=== PATIENT | male | born 1930 | race Caucasian/White ===

== ENCOUNTER 2017-09-01 06:24 | Emergency (ER) | payer MEDICARE ==
[~2017-09-01 06:24] MED LIST: ALBUTEROL SULF8.5 GM INH; AMLODIPINE BES2.5 MG PO; AMLODIPINE BESY10 MG PO; ARTIFICIAL TEAR15 M1 OPTH; ATROVENT30 ML NAS; BACTRIM DS TAB1 EACH PO; CARAFATE1 GM PO; CILOSTAZOL100 MG PO; COUGHTAB200 MG PO; COUMADIN2.5 MG PO; CRESTOR20 MG PO; DOXYCYCLINE HY100 MG PO; FLUNISOLIDE1 SPRAY; FLUOROMETHOLONE5 ML OU; FOLIC ACID1 MG PO; FUROSEMIDE40 MG PO; GUAIATUSSIN AC10 ML PO; GUIATUSS AC SY120 ML PO; ICAPS AREDS FO1 EACH PO; ISOSORBIDE MONO30 MG PO; K-TAB10 MEQ PO; METOPROLOL SUC100 MG PO; METOPROLOL TAR100 MG PO; MUCUS RELIEF200 MG PO; OMEPRAZOLE20 MG PO; POTASSIUM CHLO10 MEQ PO; PROVENTIL HFA6.7 GM INH; WARFARIN SODIUM5 MG PO; ZANTAC150 MG PO
--- NOTE | 2017-09-02 14:23 | EKG ---
[facility] [address] [facility] [place] [address] Signed Atrial fibrillation with rapid ventricular response Low voltage QRS Nonspecific ST abnormality Abnormal ECG When compared with ECG of 15-JUL-2016 18:51, No significant change was found Confirmed by GUSTAVO HINES MD ([id number]) on 09/02/2017 2:23:28 PM Electronically Signed By: GUSTAVO HINES MD 09/02/17 1423 PATIENT NAME: JULIA WARD JIGNESH Electrocardiogram DATE OF : 34 PHYSICIAN: GUSTAVO HINES MD REPORT #: [id number] REPORT IS CONFIDENTIAL AND NOT TO BE RELEASED WITHOUT AUTHORIZATION
== END 2017-09-01 08:11 | disposition home or self-care (01) ==
LOC: ED 06:24
DX: I48.91 Unspecified atrial fibrillation (principal); R10.9 Unspecified abdominal pain; R10.811 Right upper quadrant abdominal tenderness; I11.0 Hypertensive heart disease with heart failure; I50.9 Heart failure, unspecified; Z87.01 Personal history of pneumonia (recurrent); Z87.891 Personal history of nicotine dependence; Z88.6 Allergy status to analgesic agent; Z88.5 Allergy status to narcotic agent; Z79.899 Other long term (current) drug therapy; Z79.01 Long term (current) use of anticoagulants
CPT/HCPCS: 71010; 80053; 83690; 83735; 84484; 85025; 85610; 85730; 93005; 93010; 96374; 99283

== ENCOUNTER 2019-04-03 14:48 | Inpatient (IN) | payer MEDICARE ==
[~2019-04-03] VITALS: Ht 167.6 cm; Wt 71.9 kg
--- OUTSIDE RECORDS SUMMARY | ~2019-04-03 | XMS | Encounter Summary ---
Demographics + + + | Address | [id number] [place] [address] RD | | | [place] [address] | + + + | Home Phone | | + + + | Preferred Language | Unknown | + + + | Marital Status | | + + + | Latter Day Affiliation | 1077 | + + + | Race | Unknown | + + + | Ethnic Group | Unknown | + + + Author + + + | Author | [facility] | | | and [place] | + + + | Organization | [facility] | | | and [place] | + + + | Address | Unknown | + + + | Phone | Unavailable | + + + Support + + + + + | Name | Relationship | Address | Phone | + + + + + | MatthewElaine | ECON | [address] | | | | | [place] | | | | | [address] | | + + + + + Care Team Providers + +------+ + | Care Guide Foreign Tour Name | Role | Phone | + +------+ + | Curt Chanel | PCP | | + +------+ + Reason for Visit + + + | Reason | Comments | + + + | Abdominal Pain | epigastric | + + + Evaluate & Treat (Routine) +--------+--------+ + + + + | Status | Reason | Specialty | Diagnoses / | Referred By | Referred To | | | | | Procedures | Contact | Contact | +--------+--------+ + + + + | Closed | | Gastroenterol | Diagnoses | [place], | [facility] | | | | ogy | Epigastric | Curt Q, | Gastroenterol | | | | | burning | [employer] [address] | [address] | | | | | sensation | [place] | [address] | | | | | [address] | [address] | [address] [place] | | | | | esophagus | [place], [place] | [place] | | | | | Procedures | [address] | [address] | | | | | egd consult | Phone: | Phone: | | | | | | [phone] | [phone] | | | | | | Fax: | Fax: | | | | | | [phone] | [phone] | +--------+--------+ + + + + Encounter Details +--------+---------+ + + + | Date | Type | Department | Care Team | Description | +--------+---------+ + + + | 03/02/ | Office | [facility] | [place], | Abdominal pain, | | 2019 | Visit | GASTROENTEROLOGY | ELSIE Newman [address] | unspecified | | | | [address] | [place], [address] | abdominal location | | | | [address] [place], [place] | [place], [place] | (Primary Dx); Atrial | | | | [address] | [address] | fibrillation, | | | | [phone] | | unspecified type | | | | | | (HCC); Chronic | | | | | | obstructive | | | | | | pulmonary disease, | | | | | | unspecified COPD | | | | | | type (HCC); Long | | | | | | term (current) use | | | | | | of anticoagulants | +--------+---------+ + + + Social History + +-------+ +--------+------+ | Tobacco Use | Types | Packs/Day | Years | Date | | | | | Used | | + +-------+ +--------+------+ | Never Smoker | | | | | + +-------+ +--------+------+ + +---+---+---+ | Smokeless Tobacco: | | | | | Never Used | | | | + +---+---+---+ + + +---------+ + | Alcohol Use | Drinks/We | oz/Week | Comments | | | ek | | | + + +---------+ + | Not Currently | | | | + + +---------+ + + + + | Sex Assigned at | Date Recorded | | | | + + + | Not on file | | + + + + + + + | Job Start Date | Occupation | Industry | + + + + | Not on file | Not on file | Not on file | + + + + + + + + | Travel History | Travel Start | Travel End | + + + + + + | No recent travel history available. | + + documented as of this encounter Last Filed Vital Signs + + + + | Vital Sign | Reading | Time Taken | + + + + | Blood Pressure | 130/52 | 03/02/2019 0959 PDT | + + + + | Pulse | 80 | 03/02/2019958 PDT | + + + + | Temperature | 36.6 C (97.8 F) | 03/02/2019958 PDT | + + + + | Respiratory Rate | 16 | 03/02/2019958 PDT | + + + + | Oxygen Saturation | 93% | 03/02/2019958 PDT | + + + + | Inhaled Oxygen | - | - | | Concentration | | | + + + + | Weight | 73.6 kg (162 lb 4.1 | 03/02/2019958 PDT | | | oz) | | + + + + | Height | 165.1 cm (5' 5") | 03/02/2019 0959 PDT | + + + + | Body Mass Index | 27 | 03/02/2019 0959 PDT | + + + + documented in this encounter Patient Instructions Patient Instructions Paty Newton ARNP - 03/02/2019 10:00 PDTCheck with the prescib er of the Eliquis to be sure it is safe to stop for a short time to have EGD and colonoscopy done. documented in this encounter Progress Notes Fransisca Reich RN - 03/02/2019 1000 PDTScheduled pt for EGD/Colon with propofol bj tion (Afib/Eliquis, ) on Sat03/31/[address] Bhatti; standard prep reviewed: low fib er diet Sat/Sun before procedure; Saturday follow a clear liquid day before with bowel prep at 4pm until complete; Medications (hold Eliquis 24 hrs - pt states he usually hold 3 days per provider instruction and will confirm with provider; will hold PPI and Carafate day of proc edure as well), surg/med hx, and allergies were reviewed; rx given to patient to take to [place] [facility] for bowel prep and Zofran; info provided to patient; completed case request order, notes to [place]; patient's going through cancer treatment and unsure of treatment dates so may need to reschedule last minute based on her dates of treatment. aty Newton ARNP - 03/02/2019 1000 PDT PATIENT NAME: James Castro : 1930: AGE: 89 y.o. REFERRED BY: Curt Chanel PRIMARY CARE: ELSIE Jon Subjective: CHIEF COMPLAINT: James Castro is a 89 y.o. male referred by ELSIE Jon for evaluation and tr eatment of epigastric abdominal pain HISTORY OF PRESENT ILLNESS: Patient states that he has drank enough Maalox "to float a ship." He has the pain in mid abdomen and epigastric pain at least once per day. Worse with laying down. He has not associated with certain foods or eating in general. He describes as a dull pain that can burn. It can last up to half the night or 10 minutes. Tums helps some. He arvind es at least 4 per day. He has not vomited due to pain. He has taken warfarin for years. He was switched to Eliquis for the past year. He has tried taking omeprazole and sucralfate. He recently stopped taking both and it seeme d to help his abdominal pain some. He states that the same time he has had the abdominal discomfort, he has also had diarrhea. He states he typically has 1 diarrheal stool per day. He denies blood in the stool. He thinks last colonoscopy was 6-7 years ago. 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) Pseudophakia TIA (transient ischemic attack) Past Surgical History: Procedure Laterality Date COLONOSCOPY Family History Problem Relation Age of Onset Stroke Mother Social History Socioeconomic History Marital status: Spouse name: Not on file Number of children: Not on file Years of education: Not on file Highest education level: Not on file Social Needs Financial resource strain: Not on file Food insecurity - worry: Not on file Food insecurity - inability: Not on file Transportation needs - medical: Not on file Transportation needs - non-medical: Not on file Occupational History Not on file Tobacco Use Smoking status: Never Smoker Smokeless tobacco: Never Used Substance and Sexual Activity Alcohol use: Not Currently Drug use: Not on file Sexual activity: Not on file Other Topics Concern Not on file Social History Narrative Not on file Review of Systems Constitutional: Negative for diaphoresis, fatigue, fever and unexpected weight change. HENT: Positive for hearing loss, rhinorrhea and tinnitus. Negative for congestion, mouth so res and trouble swallowing. Eyes: Negative for redness and visual disturbance. Respiratory: Negative for cough, choking, chest tightness, shortness of breath and wheezing . Cardiovascular: Positive for chest pain and palpitations. Negative for leg swelling. Gastrointestinal: Positive for abdominal pain and diarrhea. Negative for abdominal distenti on, anal bleeding, blood in stool, constipation, nausea, rectal pain and vomiting. Complains of heartburn. Endocrine: Denies enlarged thyroid Genitourinary: Negative for dysuria, flank pain and frequency. Musculoskeletal: Positive for arthralgias and back pain. Negative for joint swelling. Skin: Negative for color change and rash. Neurological: Positive for headaches. Negative for seizures, syncope, weakness and numbness . Hematological: Does not bruise/bleed easily. Denies anemia or enlarged lymph glands. Psychiatric/Behavioral: Negative for dysphoric mood. The patient is not nervous/anxious. Objective: Physical Exam Constitutional: He is oriented to person, place, and time. He appears well-developed and we ll-nourished. HENT: Head: Normocephalic and atraumatic. Eyes: EOM are normal. No scleral icterus. Neck: Normal range of motion. Neck supple. Cardiovascular: Normal rate, regular rhythm and normal heart sounds. Pulmonary/Chest: Effort normal and breath sounds normal. No respiratory distress. He has no wheezes. Abdominal: Soft. Normal appearance and bowel sounds are normal. He exhibits no ascites and no mass. There is no splenomegaly or hepatomegaly. There is no tenderness. There is no rigid ity, no rebound, no guarding and negative Thomason's sign. Musculoskeletal: Normal range of motion. He exhibits no edema or deformity. Neurological: He is alert and oriented to person, place, and time. Skin: Skin is warm and dry. No rash noted. Psychiatric: He has a normal mood and affect. His behavior is normal. Nursing note and vitals reviewed. Abstract on 02/13/2019 Component Date Value Ref Range Status Creatinine, External 12/26/2018 1.1 0.8 - 1.5 Final eGFR, External 12/26/2018 >60 60 - 99,999 Final LDL Cholesterol, External 12/26/2018 59 0 - 130 Final Cholesterol, Total, External 12/26/2018 84 51 - 152 mg/dl Final Triglycerides, External 12/26/2018 35* 51 - 152 Final TSH, External 12/26/2018 5.72* 0.3 - 4.25 Final WBC, External 12/26/2018 8 3 - 10.6 Final HGB, External 12/26/2018 12.4 11.8 - 17.1 Final HCT, External 12/26/2018 38.6 36 - 51 Final PLT, External 12/26/2018 178 150 - 400 Final Neutrophils %, External 12/26/2018 65.4 44 - 74 Final Lymphocytes %, External 12/26/2018 22.8 15 - 42 Final Monocytes %, External 12/26/2018 7.7 4 - 13 Final Eosinophils %, External 12/26/2018 2.8 0 - 7 Final Neutrophils, Absolute, External 12/26/2018 5.2 1.2 - 7 Final Lymphocytes, Absolute, External 12/26/2018 1.8 0.6 - 3.4 Final Monocytes, Absolute, External 12/26/2018 0.6 0.2 - 1 Final Eosinophils, Absolute 12/26/2018 0.1 0 - 0.2 Final Basophils, Absolute 12/26/2018 0.1 0 - 0.2 Final RBC, External 12/26/2018 4.28 3.86 - 5.7 Final MCV, External 12/26/2018 90 81 - 102 Final RDW, External 12/26/2018 13.3 11.2 - 16.2 Final UA Blood, External 12/26/2018 Negative Final UA Glucose, External 12/26/2018 Negative Final UA Ketones, External 12/26/2018 Negative Final UA Ph, External 12/26/2018 7 5 - 8 Final UA Proteins, External 12/26/2018 Negative Final UA RBC, External 12/26/2018 <1 0 - 3 Final UA Specific [place], External 12/26/2018 1.003 1.001 - 1.03 Final UA Leukocyte Esterase, External 12/26/2018 Negative Final Sodium, External 12/26/2018 141 133 - 145 Final Potassium, External 12/26/2018 3.8 3.5 - 5.1 Final Chloride, External 12/26/2018 101 98 - 107 Final Carbon Dioxide, External 12/26/2018 30 21 - 32 Final Calcium, External 12/26/2018 8.7 8.4 - 10.5 Final Protein, Total, External 12/26/2018 4.1 3.5 - 5 Final Albumin, External 12/26/2018 4.1* 2.3 - 3.5 Final Bilirubin, Total, External 12/26/2018 0.6 0.2 - 1.3 Final ALP, External 12/26/2018 124 45 - 129 Final AST, External 12/26/2018 17 14 - 44 Final ALT, External 12/26/2018 15 9 - 57 Final Glucose, External 12/26/2018 101 71 - 109 Final BUN, External 12/26/2018 13 7 - 23 Final Globulin 12/26/2018 3.6* 2.3 - 3.5 Final Chol/HDL Ratio 12/26/2018 2.8* 3.7 - 6.7 Final Non HDL Chol. (LDL+VLDL) 12/26/2018 76 0 - 130 Final MCH 12/26/2018 29.0 26.0 - 33.0 pg Final MCHC 12/26/2018 32.1 31.0 - 37.0 g/dL Final % Basophils 12/26/2018 1.0 0.0 - 2.0 % Final FREE T4 (REF) 12/26/2018 1.5 0.6 - 2 Final Color 12/26/2018 Colorless Final Clarity 12/26/2018 Clear Final Bilirubin, Urine 12/26/2018 Negative Negative Final Urobilinogen, Urine 12/26/2018 <2.0 mg/dL < 0.2 mg/dL, 1.0 mg/dL, 4.0 mg/dL, Normal, 1 .0 E.U./dL, 0.2 E.U./dL, 0.2 mg/dL, Negative, 1 mg/dL, <2.0 mg/dL Final Nitrite, Urine 12/26/2018 Negative Negative Final WBC 12/26/2018 <1 0 - 5 Final Assessment: 1. Abdominal pain, unspecified abdominal location Case Request - OR/ENDO/ASC/OB: EGD, COLO NOSCOPY 2. Atrial fibrillation, unspecified type (HCC) Case Request - OR/ENDO/ASC/OB: EGD, COLONOS COPY 3. Chronic obstructive pulmonary disease, unspecified COPD type (HCC) Case Request - OR/EN DO/ASC/OB: EGD, COLONOSCOPY 4. intermediate (current) use of anticoagulants Case Request - OR/ENDO/ASC/OB: EGD, COLONOSCO PY Plan: Patient to have EGD and colonoscopy for further evaluation. The procedural techniques, risk s, indications, and alternatives were discussed. Among the risks, are perforation, bleeding , infection, allergic/adverse reactions to medications, and cardiovascular complications. E ach of these could result in hospitalization, additional procedures (including surgery), or other life threatening complications. Patient verbalized understanding. Risk factors to col o-rectal cancer discussed with patient including smoking, obesity, excessive red meat ingest ion, advancing age and first degree family relative with history of colo-rectal cancer discu ssed with patient. Patient to call with any questions or concerns prior to procedure. History of transient cerebral ischemia. Start dissolvable fiber supplement daily. Will follow up with results. Patient is to call with any question or concerns. Any fevers, chills, chest pain, SOB or other serious symptoms patient is to call the office or go to ER . Cc: ELSIE Jon This note was dictated using voice recognition software. Please contact me if there are an y questions regarding its content. documented in this encounter Plan of Treatment +--------+---------+ + + + | Date | Type | Specialty | Care Team | Description | +--------+---------+ + + + | 05/04/ | Office | Gastroenterology | [facility], | | | 2018 | Visit | | MIQUEL Newman[address] | | | | | | [place] | | | | | | [place] | | | | | | [id number] | | | | | | | | +--------+---------+ + + + documented as of this encounter Visit Diagnoses + + | Diagnosis | + + | Abdominal pain, unspecified abdominal location - Primary | + + | Atrial fibrillation, unspecified type (HCC) | + + | Chronic obstructive pulmonary disease, unspecified COPD type (HCC) | + + | intermediate (current) use of anticoagulants Long-term (current) use of anticoagulants | + + documented in this encounter
--- OUTSIDE RECORDS SUMMARY | ~2019-04-03 | XMS | Clinical Summary ---
Demographics + + + | Address | [id number] [place] [address] Rd | | | [place] [address] | + + + | Home Phone | | + + + | Preferred Language | Unknown | + + + | Marital Status | | + + + | Shinto Affiliation | 1077 | + + + | Race | Unknown | + + + | Ethnic Group | Unknown | + + + Author + + + | Author | [facility] | + + + | Organization | [facility] | + + + | Address | Unknown | + + + | Phone | Unavailable | + + + Support + + + + + | Name | Relationship | Address | Phone | + + + + + | James Castro | ECON | [address] | | | | | [place] | | | | | [address] | | + + + + + Care Team Providers + +------+ + | Care [facility] Name | Role | Phone | + +------+ + | Sukhdeep Hanna MD | PP | | + +------+ + Allergies No Known Allergies Current Medications + + +-------+---------+------+------+-------+ | Prescription | Sig. | Disp. | Refills | Star | End | Statu | | | | | | t | Date | s | | | | | | Date | | | + + +-------+---------+------+------+-------+ | folic acid | TAKE ONE TABLET BY | | | | | Activ | | (FOLVITE) 1 MG | MOUTH EVERY DAY | | | | | e | | tablet | | | | | | | + + +-------+---------+------+------+-------+ | furosemide (LASIX) | TAKE ONE TABLET BY | | | | | Activ | | 40 MG tablet | MOUTH EVERY DAY | | | | | e | + + +-------+---------+------+------+-------+ | isosorbide | TAKE ONE-HALF TABLET | | | | | Activ | | mononitrate (IMDUR) | BY MOUTH EVERY | | | | | e | | 60 MG 24 hr tablet | MORNING | | | | | | + + +-------+---------+------+------+-------+ | metoprolol | TAKE 100MG 1 1/2 BY | | | | | Activ | | (LOPRESSOR) 100 MG | MOUTH TWICE A DAY | | | | | e | | tablet | | | | | | | + + +-------+---------+------+------+-------+ | potassium chloride | TAKE TWO TABLETS BY | | | 07/28 | 07/28 | Activ | | in dextrose | MOUTH TWICE A DAY | | | 05/16 | 06/16 | e | | solution | WITH LASIX | | | 18 | 19 | | + + +-------+---------+------+------+-------+ | rosuvastatin | TAKE ONE-HALF TABLET | | | 07/28 | 07/28 | Activ | | (CRESTOR) 20 MG | BY MOUTH AT BEDTIME | | | 05/16 | 06/16 | e | | tablet | FOR CHOLESTEROL | | | 18 | 19 | | + + +-------+---------+------+------+-------+ | sucralfate | TAKE ONE TABLET BY | | | 01/26 | | Activ | | (CARAFATE) 1 g | MOUTH THREE TIMES A | | | 04/16 | | e | | tablet | DAY | | | 18 | | | + + +-------+---------+------+------+-------+ | isosorbide | Take 30 mg by mouth | | | | | Activ | | dinitrate (ISORDIL) | daily. | | | | | e | | 30 MG tablet | | | | | | | + + +-------+---------+------+------+-------+ | Multiple | Take 1 capsule by | | | | | Activ | | Vitamins-Minerals | mouth daily. | | | | | e | | (PRESERVISION AREDS | | | | | | | | 2 PO) | | | | | | | + + +-------+---------+------+------+-------+ | omeprazole | Take 20 mg by mouth | | | | | Activ | | (PRILOSEC) 20 MG | every morning before | | | | | e | | capsule | breakfast. | | | | | | + + +-------+---------+------+------+-------+ | cilostazol | Take 100 mg by mouth | | | | | Activ | | (PLETAL) 100 MG | 2 (two) times | | | | | e | | tablet | daily. | | | | | | + + +-------+---------+------+------+-------+ | amLODIPine | Take 2.5 mg by mouth | | | | | Activ | | (NORVASC) 2.5 MG | daily. | | | | | e | | tablet | | | | | | | + + +-------+---------+------+------+-------+ | guaifenesin 200 MG | Take 400 mg by mouth | | | | | Activ | | tablet | every 4 (four) | | | | | e | | | hours as needed for | | | | | | | | Congestion. | | | | | | + + +-------+---------+------+------+-------+ | potassium chloride | Take 10 mEq by mouth | | | | | Activ | | (K-DUR) 10 MEQ | 2 (two) times daily | | | | | e | | tablet | with meals. | | | | | | + + +-------+---------+------+------+-------+ | apixaban (ELIQUIS) | Take 5 mg by mouth 2 | | | | | Activ | | 2.5 MG tablet | (two) times daily. | | | | | e | + + +-------+---------+------+------+-------+ | fluorometholone | Place into both | | | | | Activ | | (FML) 0.1 % | eyes 4 (four) times | | | | | e | | ophthalmic ointment | daily. | | | | | | + + +-------+---------+------+------+-------+ | ipratropium | 1 spray by Each Nare | | | | | Activ | | (ATROVENT) 0.06 % | route 3 (three) | | | | | e | | nasal | times daily. | | | | | | + + +-------+---------+------+------+-------+ | albuterol | Inhale 2 puffs into | | | | | Activ | | (PROVENTIL | the lungs every 4 | | | | | e | | HFA;VENTOLIN HFA) | (four) hours as | | | | | | | 108 (90 Base) | needed for Wheezing. | | | | | | | MCG/ACT inhaler | | | | | | | + + +-------+---------+------+------+-------+ Active Problems Not on file Social History + +-------+ +--------+------+ | Tobacco Use | Types | Packs/Day | Years | Date | | | | | Used | | + +-------+ +--------+------+ | Former Smoker | | 1 | 50 | | + +-------+ +--------+------+ + +---+---+---+ | Smokeless Tobacco: | | | | | Former User | | | | + +---+---+---+ + + +---------+ + | Alcohol Use | Drinks/We | oz/Week | Comments | | | ek | | | + + +---------+ + | No | | | | + + +---------+ + + + + | Sex Assigned at | Date Recorded | | | | + + + | Not on file | | + + + Last Filed Vital Signs + + + + | Vital Sign | Reading | Time Taken | + + + + | Blood Pressure | 135/77 | 09/03/2018 9:42 AM PST | + + + + | Pulse | 93 | 09/03/2018 9:42 AM PST | + + + + | Temperature | 36.4 C (97.5 F) | 09/03/2018 9:42 AM PST | + + + + | Respiratory Rate | 18 | 09/03/2018 9:42 AM PST | + + + + | Oxygen Saturation | 97% | 09/03/2018 9:42 AM PST | + + + + | Inhaled Oxygen | - | - | | Concentration | | | + + + + | Weight | 75.3 kg (166 lb) | 09/03/2018 9:42 AM PST | + + + + | Height | 167.6 cm (5' 6") | 09/03/2018 9:42 AM PST | + + + + | Body Mass Index | 26.79 | 09/03/2018 9:42 AM PST | + + + + Plan of Treatment + + + + + | Health Maintenance | Due Date | Last Done | Comments | + + + + + | Vaccine: | | | | | Dtap/Tdap/Td (1 - | 1 | | | | Tdap) | | | | + + + + + | Vaccine: Zoster (1 | | | | | of 2) | 2 | | | + + + + + | Vaccine: | | | | | Pneumococcal 65+ | 7 | | | | Low/Medium Risk (1 | | | | | of 2 - PCV13) | | | | + + + + + | Vaccine: Influenza | | | | | (Season Ended) | 9 | | | + + + + + Results Not on filefrom Last 3 Months Insurance + +--------+ +------+ + + | Payer | Benefi | Subscriber | Type | Phone | Address | | | t Plan | ID | | | | | | / | | | | | | | Group | | | | | + +--------+ +------+ + + | [employer] | [employer] | [id number] | | | | | | HEALTH | | | | | | | PLAN | | | | | + +--------+ +------+ + + | [employer] | [employer] | [id number] | | [phone] [employer] [id number] | | ADMINISTRATION | [place] | | | [phone] | | | [address] | | | | [address] [place] [address] | | | [place] | | | | [phone] | | | ON | | | | | + +--------+ +------+ + + + +--------+ +--------+ + + | Guarantor Name | Accoun | Relation to | Date | Phone | Billing Address | | | t Type | Patient | of | | | | | | | | | | + +--------+ +--------+ + + | JAMES CASTRO | Person | Self [birth year] | Home: | [id number] | | | al/Fam | | 1930 | +- | [place] [address] | | | shara | | | [phone] | | + +--------+ +--------+ + + | JAMES CASTRO | Vetera | Self | [birth year] | Home: | [address] | | | ns | | 1930 | +- | [place] | | | Admini | | | [phone] | [phone] | | | strati | | | | | | | on | | | | | + +--------+ +--------+ + +
--- OUTSIDE RECORDS SUMMARY | ~2019-04-03 | XMS | Clinical Summary ---
Demographics + + + | Address | [id number] [place] [address] RD | | | [place] [address] | + + + | Home Phone | | + + + | Preferred Language | Unknown | + + + | Marital Status | | + + + | Restorationist Affiliation | 1077 | + + + | Race | Unknown | + + + | Ethnic Group | Unknown | + + + Author + + + | Author | [facility] | | | and [place] | + + + | Organization | [facility] | | | and [place] | + + + | Address | Unknown | + + + | Phone | Unavailable | + + + Support + + + + + | Name | Relationship | Address | Phone | + + + + + | Elaine Castro | ECON | [address] | | | | | [place] | | | | | [phone] | | + + + + + Care Team Providers + +------+ + | Care Carton Repairer Name | Role | Phone | + +------+ + | Curt Chanel | PP | | + +------+ + Allergies No Known Allergies Medications + + + +---------+------+------+-------+ | Medication | Sig | Dispensed | Refills | Star | End | Statu | | | | | | t | Date | s | | | | | | Date | | | + + + +---------+------+------+-------+ | albuterol 90 | Inhale 2 puffs into | | 0 | | | Activ | | mcg/puff inhaler | the lungs every 4 | | | | | e | | | hours as needed for | | | | | | | | Wheezing. | | | | | | + + + +---------+------+------+-------+ | amLODIPine | Take 2.5 mg by mouth | | 0 | | | Activ | | (NORVASC) 2.5 mg | Daily. | | | | | e | | tablet | | | | | | | + + + +---------+------+------+-------+ | apixaban (ELIQUIS) | Take 5 mg by mouth 2 | | 0 | | | Activ | | 5 mg tablet | times daily. | | | | | e | + + + +---------+------+------+-------+ | | Place 1 drop into | | 0 | | | Activ | | carboxymethylcellulo | both eyes 4 times | | | | | e | | se (REFRESH TEARS) | daily. | | | | | | | 0.5% ophthalmic | | | | | | | | solution | | | | | | | + + + +---------+------+------+-------+ | cilostazol | Take 100 mg by mouth | | 0 | | | Activ | | (PLETAL) 100 mg | 2 times daily. | | | | | e | | tablet | | | | | | | + + + +---------+------+------+-------+ | fluorometholone | Place 2 drops into | | 0 | | | Activ | | (FML) 0.1% | both eyes 2 times | | | | | e | | ophthalmic | daily. | | | | | | | suspension | | | | | | | + + + +---------+------+------+-------+ | guaiFENesin 200 MG | Take 400 mg by mouth | | 0 | | | Activ | | tablet | 3 times daily. | | | | | e | + + + +---------+------+------+-------+ | ipratropium | 2 sprays by Nasal | | 0 | | | Activ | | (ATROVENT) 0.06% | route 3 times daily. | | | | | e | | nasal spray | | | | | | | + + + +---------+------+------+-------+ | omeprazole | Take 40 mg by mouth | | 0 | | | Activ | | (PRILOSEC) 20 mg | every morning | | | | | e | | capsule | (before breakfast). | | | | | | + + + +---------+------+------+-------+ | potassium chloride | Take 20 mEq by mouth | | 0 | | | Activ | | (KLOR-CON) 10 MEQ | 2 times daily. | | | | | e | | ER tablet | | | | | | | + + + +---------+------+------+-------+ | rosuvastatin | Take 10 mg by mouth | | 0 | | | Activ | | (CRESTOR) 20 mg | nightly. | | | | | e | | tablet | | | | | | | + + + +---------+------+------+-------+ | sucralfate | Take 1 g by mouth 3 | | 0 | | | Activ | | (CARAFATE) 1 g | times daily. | | | | | e | | tablet | | | | | | | + + + +---------+------+------+-------+ | folic acid 1 mg | Take 1 mg by mouth | | 0 | | | Activ | | tablet | Daily. | | | | | e | + + + +---------+------+------+-------+ | furosemide (LASIX) | Take 40 mg by mouth | | 0 | | | Activ | | 40 mg tablet | 2 times daily. | | | | | e | + + + +---------+------+------+-------+ | metoprolol | Take 150 mg by mouth | | 0 | | | Activ | | tartrate (LOPRESSOR) | 2 times daily. | | | | | e | | 100 mg tablet | | | | | | | + + + +---------+------+------+-------+ | Psyllium 100 % | Take 4 g by mouth | 368 g | 2 | 05/0 | | Activ | | POWD | Daily. | | | 6/20 | | e | | | | | | 19 | | | + + + +---------+------+------+-------+ | ondansetron | As needed for | 2 | 0 | 05/0 | | Activ | | (ZOFRAN) 4 mg tablet | nausea; stop prep; | tablet | | 6/20 | | e | | | take 1 tablet; wait | | | 19 | | | | | 30 min then resume | | | | | | | | prep; repeat 1x prn | | | | | | + + + +---------+------+------+-------+ Active Problems + + + | Problem | Noted Date | + + + | CAD (coronary artery disease) | 03/31/2019 | + + + + + | Overview: CORONARY ARTERIESThe left main was normal.The left | | anterior descending (LAD) was mildly calcified, with mild diffuse | | disease.The left circumflex had mild luminal irregularities.The | | right coronary artery (RCA) had mild diffuse disease.LEFT | | VENTRICULOGRAMLeft ventriculogram revealed normal left | | ventricular systolic functionwith an ejection fraction estimated | | visually at 60% to 65%. Mild (1+)mitral regurgitation was | | noted.CONCLUSIONS1. Nonobstructive coronary artery disease | | as described above.2. Normal left ventricular systolic | | function with an ejection fraction of 60% to 65%. Mild | | mitral regurgitation noted.3. Mildly elevated left | | ventricular end-diastolic pressure. | |1. Nonobstructive coronary artery disease as described above. | |2. Normal left ventricular systolic function with an ejection | | fraction of 60% to 65%. Mild mitral regurgitation noted. | |3. Mildly elevated left ventricular end-diastolic pressure. 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 | 03/02/2019 | | claudication | | + + + | Basal cell carcinoma of ear | 03/02/2019 | + + + | 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 | 03/02/2019 | + + + | Chronic sinusitis | 03/02/2019 | + + + | Dry eyes | 03/02/2019 | + + + | Edema | 03/02/2019 | + + + | Peripheral vascular disease | 03/02/2019 | + + + + + | Overview: Aortobifemoral bypass graft | + + + + + | Pseudophakia | 03/02/2019 | + + + | Solitary pulmonary nodule | 03/02/2019 | + + + | Transient cerebral ischemia | 03/02/2019 | + + + | Chronic obstructive pulmonary disease, unspecified | 03/02/2019 | + + + | GERD (gastroesophageal reflux disease) | 03/02/2019 | + + + | Hearing loss | 03/02/2019 | + + + | Hyperlipidemia | 03/02/2019 | + + + | Other ill-defined and unknown causes of morbidity and mortality | 01/29/2013 | + + + | Beta Blockers - Daily Use | | + + + Encounters +--------+ + + + + | Date | Type | Specialty | Care Team | Description | +--------+ + + + + | 04/01/ | Telephone | | [facility] | | 2018 | | | ELSIE Newman | | +--------+ + + + + | 03/31/ | Anesthesia | | Eliceo Patterson MD | | | 2019 | Event | | | | +--------+ + + + + | 03/31/ | Surgery | | | EGD | | 2018 | | | | | +--------+ + + + + | 03/31/ | Hospital | | Raghavendra De La Rosa | Chronic obstructive | | 2019 | Encounter | | MD Eron | pulmonary disease, | | | | | | unspecified COPD | | | | | | type (HCC); Long | | | | | | term (current) use | | | | | | of anticoagulants; | | | | | | Abdominal pain, | | | | | | unspecified | | | | | | abdominal location; | | | | | | Diarrhea, | | | | | | unspecified type | +--------+ + + + + | 03/18/ | Telephone | | Raghavendra De La Rosa | Procedure | | 2019 | | | MD Eron | (questions) | +--------+ + + + + | 03/02/ | Office | | [place], | Abdominal pain, | | 2019 | Visit | | ELSIE Newman | unspecified | | | | | | abdominal location | | | | | | (Primary Dx); Atrial | | | | | | fibrillation, | | | | | | unspecified type | | | | | | (HCC); Chronic | | | | | | obstructive | | | | | | pulmonary disease, | | | | | | unspecified COPD | | | | | | type (HCC); Long | | | | | | term (current) use | | | | | | of anticoagulants | +--------+ + + + + | 02/13/ | Abstract | | Provider, | | | 2019 | | | Historical, MD | | +--------+ + + + + from Last 3 Months Family History + + +------+ + | Medical History | Relation | Name | Comments | + + +------+ + | Stroke | Mother | | | + + +------+ + + + + + + | Relation | Name | Status | Comments | + + + + + | Father | | | | | | | (Age | | | | | 74) | | + + + + + | Mother | | | | | | | (Age | | | | | 72) | | + + + + + | Sister | Zhanna | Alive | | + + + + + Social History + [...] recent travel history available. | + + Last Filed Vital Signs + + + + | Vital Sign | Reading | Time Taken | + + + + | Blood Pressure | 94/50 | 03/31/2019 1000 PDT | + + + + | Pulse | 72 | 03/31/2019 1000 PDT | + + + + | Temperature | 36.6 C (97.9 F) | 03/31/2019 0956 PDT | + + + + | Respiratory Rate | 20 | 03/31/2019 1000 PDT | + + + + | Oxygen Saturation | 94% | 03/31/2019 1000 PDT | + + + + | Inhaled Oxygen | - | - | | Concentration | | | + + + + | Weight | 72.5 kg (159 lb 13.3 | 03/31/2019800 PDT | | | oz) | | + + + + | Height | 165.1 cm (5' 5") | 03/31/2019800 PDT | + + + + | Body Mass Index | 26.6 | 03/31/2019800 PDT | + + + + Plan of Treatment +--------+---------+ + + + | Date | Type | Specialty | Care Team | Description | +--------+---------+ + + + | 05/04/ | Office | | [facility], | | | 2019 | Visit | | ELSIE Newman [address] | | | | [address] | | | | | | [place] | | | | | | [address] | | | | | | | | +--------+---------+ + + + + + + + + | Health Maintenance | Due Date | Last Done | Comments | + + + + + | Vaccine: Zoster (1 | | | | | of 2) | 2 | | | + + + + + | Adult Annual | | | | | Wellness Visit | 9 | | | + + + + + | Vaccine: | | 05/01/2012 | | | Dtap/Tdap/Td (2 - | 2 | | | | Td) | | | | + + + + + | Vaccine: | Completed | 05/28/2016, 05/11/2015 | | | Pneumococcal 65+ | | | | | Low/Medium Risk | | | | + + + + + | Vaccine: Influenza | Completed | 08/07/2018, 07/30/2017, | | | | | 07/31/2016, Additional history | | | | | exists | | + + + + + Procedures + +--------+ + + + | Procedure Name | Priori | Date/Time | Associated Diagnosis | Comments | | | ty | | | | + +--------+ + + + | EGD | Routin | 03/31/2019 | | Results for this | | | e | 9:12 PDT | | procedure are in the | | | | | | results section. | + +--------+ + + + | COLONOSCOPY | Routin | 03/31/2019 | | Results for this | | | e | 9:11 PDT | | procedure are in the | | | | | | results section. | + +--------+ + + + | COLONOSCOPY | | 03/31/2019 | Atrial | | | | | 9:10 PDT | fibrillation, | | | | | | unspecified type | | | | | | (HCC) Chronic | | | | | | obstructive | | | | | | pulmonary disease, | | | | | | unspecified COPD | | | | | | type (HCC) Long | | | | | | term (current) use | | | | | | of anticoagulants | | | | | | Abdominal pain, | | | | | | unspecified | | | | | | abdominal location | | + +--------+ + + + | EGD | | 03/31/2019 | Atrial | | | | | 9:10 PDT | fibrillation, | | | | | | unspecified type | | | | | | (HCC) Chronic | | | | | | obstructive | | | | | | pulmonary disease, | | | | | | unspecified COPD | | | | | | type (HCC) Long | | | | | | term (current) use | | | | | | of anticoagulants | | | | | | Abdominal pain, | | | | | | unspecified | | | | | | abdominal location | | + +--------+ + + + | SURGICAL PATHOLOGY | Routin | 03/31/2019 | | Results for this | | EXAM | e | 0:00 PDT | | procedure are in the | | | | | | results section. | + +--------+ + + + from Last 3 Months Results EGD (03/31/2019 9:12 PDT) + + | Specimen | + + | | + + + + ---+ | Narrative | Performed At | + + ---+ | | [facility] | | GastroenterologyPatient Name: James CastroProcedmt Date: 03/31/2019 | [facility] | | 9:12 AMMRN: [id number] #: [id number] of : | | | [place] Type: AmbulatoryAge: 89Room: Endo Room 2Gender: | | | MaleNote Status: FinalizedAttending MD: RAGHAVENDRA DE LA ROSA , | | | MDProcedure: Upper GI | | | endoscopyIndications: Generalized abdominal pain, | | | DiarrheaProviders: RAGHAVENDRA DE LA ROSA MD, Prisca | | | DIANA Braswell, Yaneth Oconnell, | | | Director [employer], Eliceo Patterson MD (Anesthesia Staff)Referring | | | MD: Curt Chanel (Referring | | | MD)Medicines: Monitored Anesthesia | | | CareComplications: No immediate | | | complications.Procedure: Pre-Anesthesia Assessment: - | | | Prior to the procedure, a History and Physical was performed, and | | | patient medications and allergies were reviewed. The patient | | | is competent. The risks and benefits of the procedure and the | | | sedation options and risks were discussed with the patient. | | | All questions were answered and informed consent was | | | obtained. Patient identification and proposed procedure were | | | verified by the physician, the nurse and the anesthesiologist | | | in the pre-procedure area in the procedure room. Mental | | | Status Examination: alert and oriented. Airway Examination: Mallampati | | | Class II (the uvula but not tonsillar pillars visualized). | | | Respiratory Examination: clear to auscultation. CV | | | Examination: irregularly irregular rate and rhythm. | | | Prophylactic Antibiotics: The patient does not require | | | prophylactic antibiotics. Prior Anticoagulants: The patient | | | has taken Eliquis (apixaban), last dose was 2 days prior to procedure. | | | ASA Grade Assessment: III - A patient with severe systemic | | | disease. After reviewing the risks and benefits, the patient | | | was deemed in satisfactory condition to undergo the | | | procedure. The anesthesia plan was to use monitored | | | anesthesia care (MAC). Immediately prior to administration of | | | medications, the patient was re-assessed for adequacy to | | | receive sedatives. The heart rate, respiratory rate, oxygen | | | saturations, blood pressure, adequacy of pulmonary ventilation, and | | | response to care were monitored throughout the procedure. The | | | physical status of the patient was re-assessed after the | | | procedure. After obtaining informed consent, the endoscope was | | | passed under direct vision. Throughout the procedure, the | | | patient's blood pressure, pulse, and oxygen saturations were | | | monitored continuously. The Endoscope was introduced through | | | the mouth, and advanced to the second part of duodenum. The | | | upper GI endoscopy was accomplished without difficulty. The | | | patient tolerated the procedure well.Findings: The examined | | | esophagus was normal. The Z-line was regular and was found 39 | | | cm from the incisors. Patchy mild inflammation characterized | | | by erosions and erythema was found in the gastric body and in | | | the gastric antrum. Biopsies were taken with a cold forceps | | | for histology. The cardia and gastric fundus were normal on | | | retroflexion. The exam of the stomach was otherwise | | | normal. The duodenal bulb and second portion of the duodenum | | | were normal. Biopsies were taken with a cold forceps for | | | histology.Impression: - Normal esophagus. - Z-line | | | regular, 39 cm from the incisors. - Gastritis. | | | Biopsied. - Normal duodenal bulb and second portion of the | | | duodenum. Biopsied.Recommendation: - Await pathology | | | results. - Resume previous diet. - See the other | | | procedure note for documentation of additional | | | recommendations. - Use Prilosec OTC 20 mg PO daily for 2 | | | months. - Return to GI clinic.RAGHAVENDRA DE LA ROSA MD03/31/2019 | | | 9:50:31 AMThis report has been signed electronically.Number of | | | Addenda: 0Note Initiated On: 03/31/2019 9:12 AMScope In: 9:23:14 AMScope | | | Out: 9:29:18 AM [facility], [address] | | | [place] [address] | | | - Resume previous diet. | | | - See the other procedure note for documentation of additional | | | recommendations. | | | - Use Prilosec OTC 20 mg PO daily for 2 months. | | | - Return to GI clinic. | | |RAGHAVENDRA DE LA ROSA MD | | |03/31/2019 9:50:31 AM | | |This report has been signed electronically. | | |Number of Addenda: 0 | | |Note Initiated On: 03/31/2019 9:12 AM | | |Scope In: 9:23:14 AM | | |Scope Out: 9:29:18 AM | | | [facility], [address] , [place], [place] | | | [address] | | + + ---+ + +---------+ + + | Performing | Address | City/State/Zipcode | Phone Number | | Organization | | | | + +---------+ + + | [facility] [facility] | | | | + +---------+ + + COLONOSCOPY (03/31/2019 9:11 PDT) + + | Specimen | + + | | + + + + ---+ | Narrative | Performed At | + + ---+ | | [facility] | | GastroenterologyPatient Name: James CastroProcedure Date: 03/31/2019 | [facility] | | 9:11 AMMRN: [id number] #: [id number] of : | | | [address] Type: AmbulatoryAge: 89Room: Endo Room 2Gender: | | | MaleNote Status: FinalizedAttending MD: RAGHAVENDRA DE LA ROSA , | | | MDProcedure: ColonoscopyIndications: | | | Generalized abdominal pain, Chronic diarrheaProviders: | | | RAGHAVENDRA DE LA ROSA MD, Prisca Braswell RN, Yaneth | | | Anish, Director [employer], Eliceo Salazar | | | MD Leonardo (Anesthesia Staff)Referring MD: Curt Chanel | | | (Referring MD), [facility], | | | ELSIE (Referring | | | MD)Medicines: Monitored Anesthesia | | | CareComplications: No immediate | | | complications.Procedure: Pre-Anesthesia Assessment: - | | | Prior to the procedure, a History and Physical was performed, and | | | patient medications and allergies were reviewed. The patient | | | is competent. The risks and benefits of the procedure and the | | | sedation options and risks were discussed with the patient. | | | All questions were answered and informed consent was | | | obtained. Patient identification and proposed procedure were | | | verified by the physician, the nurse and the anesthesiologist | | | in the pre-procedure area in the procedure room. Mental | | | Status Examination: alert and oriented. Airway Examination: Mallampati | | | Class II (the uvula but not tonsillar pillars visualized). | | | Respiratory Examination: clear to auscultation. CV | | | Examination: irregularly irregular rate and rhythm. | | | Prophylactic Antibiotics: The patient does not require | | | prophylactic antibiotics. Prior Anticoagulants: The patient | | | has taken Eliquis (apixaban), last dose was 2 days prior to procedure. | | | ASA Grade Assessment: III - A patient with severe systemic | | | disease. After reviewing the risks and benefits, the patient | | | was deemed in satisfactory condition to undergo the | | | procedure. The anesthesia plan was to use monitored | | | anesthesia care (MAC). Immediately prior to administration of | | | medications, the patient was re-assessed for adequacy to | | | receive sedatives. The heart rate, respiratory rate, oxygen | | | saturations, blood pressure, adequacy of pulmonary ventilation, and | | | response to care were monitored throughout the procedure. The | | | physical status of the patient was re-assessed after the | | | procedure. After I obtained informed consent, the scope was | | | passed under direct vision. Throughout the procedure, the | | | patient's blood pressure, pulse, and oxygen saturations were | | | monitored continuously. The Colonoscope was introduced | | | through the anus and advanced to the cecum, identified by | | | appendiceal orifice and ileocecal valve. The colonoscopy was performed | | | without difficulty. The patient tolerated the procedure | | | well. The quality of the bowel preparation was evaluated | | | using the BBPS ([place] Bowel Preparation Scale) with scores | | | of: Right Colon = 3, Transverse Colon = 3 and Left Colon = 3 | | | (entire mucosa seen well with no residual staining, small | | | fragments of stool or opaque liquid). The total BBPS score | | | equals 9.Findings: The perianal and digital rectal | | | examinations were normal. A few small patchy angiodysplastic | | | lesions without bleeding were found in the ascending colon | | | and in the cecum. Normal mucosa was found in the rectum, in | | | the sigmoid colon, in the descending colon, in the transverse | | | colon, in the ascending colon and in the cecum. Biopsies for | | | histology were taken with a cold forceps from the entire | | | colon for evaluation of microscopic colitis. A few | | | small-mouthed diverticula were found in the sigmoid colon. The | | | retroflexed view of the distal rectum and anal verge was normal and | | | showed no anal or rectal abnormalities.Impression: - | | | A few non-bleeding colonic angiodysplastic lesions. - Normal | | | mucosa in the rectum, in the sigmoid colon, in the descending | | | colon, in the transverse colon, in the ascending colon and in the | | | cecum. Biopsied. - Diverticulosis in the sigmoid | | | colon. - The distal rectum and anal verge are normal on | | | retroflexion view. - There were no endoscopic findings to | | | explain diarrhea. Await pathology | | | results.Recommendation: - The patient will be observed | | | post-procedure, until all discharge criteria are met. | | | - Resume previous diet. - Continue present | | | medications. - Await pathology results. - Resume | | | Eliquis (apixaban) at prior dose today. - Return to GI | | | clinic.RAGHAVENDRA DE LA ROSA MD03/31/2019 9:54:51 AMThis report has been | | | signed electronically.Number of Addenda: 0Note Initiated On: 03/31/2019 | | | 9:11 AMScope Withdrawal Time: 0 hours 8 minutes 24 seconds Scope In: | | | 9:31:10 AMScope Out: 9:46:59 AM [facility] | | | [place], [address] [place] [id number] | | | - Await pathology results. | | | - Resume Eliquis (apixaban) at prior dose today. | | | - Return to GI clinic. | | |RAGHAVENDRA DE LA ROSA MD | | |03/31/2019 9:54:51 AM | | |This report has been signed electronically. | | |Number of Addenda: 0 | | |Note Initiated On: 03/31/2019 9:11 AM | | |Scope Withdrawal Time: 0 hours 8 minutes 24 seconds | | |Scope In: 9:31:10 AM | | |Scope Out: 9:46:59 AM | | | [facility], [address] [place] [address] | | | [address] | | + + ---+ + +---------+ + + | Performing | Address | City/State/Zipcode | Phone Number | | Organization | | | | + +---------+ + + | [facility] | | | | + +---------+ + + Surgical Pathology Exam (03/31/2019 0:00 PDT) + + | Specimen | + + | | + + + + + | Narrative | Performed At | + + + | SPECIMEN(S): A DUODENAL BIOPSY SPECIMEN(S): B GASTRIC BIOPSY | [facility] | | SPECIMEN(S): C RANDOM COLON SPECIMEN SOURCE: A. DUODENAL BIOPSY | [facility] | | B. GASTRIC BIOPSY C. 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 MICROSCOPIC DESCRIPTION: Histologic sections of all | | | submitted blocks are examined by light microscopy. These findings, | | | together with the gross examination, support the pathologic diagnosis. | | | FINAL PATHOLOGIC DIAGNOSIS: A. Duodenal biopsy: - Benign | | | duodenal mucosa, negative for specific diagnostic abnormality. B. | | | Gastric biopsy: - Benign gastric-type mucosa with focal fundic | | | gland polyp formation. - Negative for evidence of Helicobacter | | | organisms on routine HE stained sections. C. Random colon, biopsy: | | | - Benign colonic mucosa, negative for specific diagnostic | | | abnormality. JVR:[facility]:C2NR GROSS DESCRIPTION: Three specimens | | | are received in three containers, labeled "AH." A. The specimen, | | | labeled "AH, duodenal biopsy," is received in formalin and consists | | | of six bermudez-white soft tissue fragments ranging from 0.2-0.4 cm in | | | greatest dimension. The specimen is entirely submitted in cassette | | | (A1). B. The specimen, labeled "AH, gastric biopsy," is | | | received in formalin and consists of five bermudez-white soft tissue | | | fragments ranging from 0.2-0.4 cm in greatest dimension. The | | | specimen is entirely submitted in cassette (B1). C. The specimen, | | | labeled "AH, random colon," is received in formalin and consists of | | | nine bermudez-white soft tissue fragments ranging from 0.2-0.3 cm in | | | greatest dimension. The specimen is entirely submitted in cassette | | | (C1). [place] (under the direct supervision of a pathologist) The | | | Gross Description was prepared using a voice recognition | | | system. The report was reviewed for accuracy; however, sound-alike | | | word errors, addition and/or deletions may occur. If there is any | | | question about this report, please contact Client Services. | | | PERFORMING LABORATORY: The technical component was performed by | | | [facility], [address] [place] [id number] (Medical | | | Director: Hellen Cortez MD; IA# [id number]). Professional | | | interpretation was performed by [facility] [place] | | | [address] | | | [address] (Skin Tanner: Rajeev Veloz M.D.). | | | Diagnostician: Rajeev Veloz MD Pathologist Electronically | | | Signed 04/01/2019 | | + + + + +---------+ + + | Performing | Address | City/State/Zipcode | Phone Number | | Organization | | | | + +---------+ + + | [facility] | | | | | [facility] | | | | + +---------+ + + from Last 3 Months Insurance + +--------+ +--------+-------+---------+--------+ | Payer | Benefi | Subscriber | Effect | Phone | Address | Type | | | t Plan | ID | bettye | | | | | | / | | Dates | | | | | | Group | | | | | | + +--------+ +--------+-------+---------+--------+ | [employer]MIN | [employer] | [id number] | | | | Indemn | | | NS | | 019-Pr | | | ity | | | CHOICE | | esent | | | | + +--------+ +--------+-------+---------+--------+ | [employer] ADMIN | [place] | [id number] | | | | Indemn | | | NS | | 019-Pr | | | ity | | | ADMIN | | esent | | | | | | [place] | | | | | | [place] | | | | | | + +--------+ +--------+-------+---------+--------+ + +--------+ +--------+ + + | Guarantor Name | Accoun | Relation to | Date | Phone | Billing Address | | | t Type | Patient | of | | | | | | | | | | + +--------+ +--------+ + + | James Castro W | Person | Self | [birth year] | [address] | | | al/Fam | | 1930 | [phone] | [place] | | | shara | | | [address] (Home) | [address] | + +--------+ +--------+ + + Advance Directives Patient has advance care planning documents on file. For more information, please contact:Jan[facility] [place] [address]
--- OUTSIDE RECORDS SUMMARY | ~2019-04-03 | XMS | Encounter Summary ---
Demographics + + + | Address | [address] [place] [address] RD | | | [place] [address] | + + + | Home Phone | | + + + | Preferred Language | Unknown | + + + | Marital Status | | + + + | Uatsdin Affiliation | 1077 | + + + | Race | Unknown | + + + | Ethnic Group | Unknown | + + + Author + + + | Author | [facility] | | | and [place] | + + + | Organization | [facility] | | | and [place] | + + + | Address | Unknown | + + + | Phone | Unavailable | + + + Support + + + + + | Name | Relationship | Address | Phone | + + + + + | Elaine Castro | ECON | [address] | | | | | [place] | | | | | [address] | | + + + + + Care Team Providers + +------+ + | Care Scaffold Builder Name | Role | Phone | + [...] | | type (HCC) | | [place] [address] | | | | | Chronic | | Phone: | | | | | obstructive | | [phone] | | | | | pulmonary | | Fax: | | | | | disease, | | [phone] | | | | | unspecified | [...] | | | | | | | [place] | | | | | | | ESOPHAGOGAST | | | | | | | RODUODENOSCO | | | | | | | PY TRANSORAL | | | | | | | DIAGNOSTIC | | | | | | | NC EGD | | | | | | | TRANSORAL | | | | | | | BIOPSY | | | | | | | SINGLE/MULTI | | | | | | | PLE NC | | | | | | | COLONOSCOPY | | | | | | | FLX DX | | | | | | | W/COLLJ SPEC | | | | | | | WHEN PFRMD | | | | | | | NC | | | | | | | COLONOSCOPY | | | | | | | W/BIOPSY | | | | | | | SINGLE/MULTI | | | | | | | PLE NC | | | | | | | COLSC FLX | | | | | | | W/RMVL OF | | | | | | | TUMOR POLYP | | | | | | | LESION SNARE | | | | | | | TQ NC | | | | | | | [...] + + | 03/31/ | Anesthesia | [facility] | Eliceo Patterson MD | | | 2019 | Event | [facility] | [address] | | | | | [address] | [place] | | | | | [place] | [address] | | | | | [address] | [phone] | | | | | [phone] | | | +--------+ + + + [...] by | 03/31/19 1045 by | | eragin | oikt-prq-ibdblv catheter system; | Angelita Barajas, RN | Nadira Nogueira, | | IV [...] + + documented as of this encounter Plan of Treatment +--------+---------+ + + + | Date | Type | Specialty | Care Team | Description | +--------+---------+ + + + | 05/04/ | Office | Gastroenterology | [facility], | | | 2019 | Visit | | ELSIE Newman [address] | | | | | | [address] | | | | | | [place] | | | | | | [address] | | | | | | | [...] | 03/31/19 at 0919, Anesthesia | | PDT | | | | | Intra-op | | | | | | + +--------+ +-------+------+------+ +---+---+ | | | +---+---+ + +-------+ +-------+---+---+ | propofol (DIPRIVAN) injection | Given | 03/31/20 | 30 mg | | | | Intravenous, PRN, Starting Tue | | 19 9:20 | | | | | 03/31/19 at 0919, Anesthesia | | PDT | | | | | Intra-op | | | | | | + +-------+ +-------+---+---+ +-------+ +-------+---+---+ | Given | 03/31/20 | 60 mg | | | | | 19 9:19 | | | | | | PDT | | | | +-------+ +-------+---+---+ +---+---+ | | | +---+---+ + + + + +-------+---+ | propofol (DIPRIVAN) injection | Rate/Dos | 03/31/20 | 120 | 52.2 | | | Intravenous, CONTINUOUS PRN, | e Change | 19 9:32 | mcg/kg/m | mL/hr | | | Starting 03/31/19 at 0921, | | PDT | in | | | | Anesthesia Intra-op | | | | | | + + + + +-------+---+ + + + +-------+---+ | Rate/Dose Change | 03/31/20 | 140 | 60.9 | | | | 19 9:22 | mcg/kg/m | mL/hr | | | | PDT | in | | | + + + +-------+---+ | New Bag | 03/31/20 | 160 | 69.6 | | | | 19 9:21 | mcg/kg/m | mL/hr | | | | PDT | in | | | + + + +-------+---+ +---+---+ | | | +---+---+ documented in this encounter"
--- OUTSIDE RECORDS SUMMARY | ~2019-04-03 | XMS | Clinical Summary ---
Demographics + + + | Address | [address] [place] [address] Rd | | | [place] [address] | + + + | Home Phone | | + + + | Preferred Language | Unknown | + + + | Marital Status | | + + + | Mandaeism Affiliation | 1077 | + + + | Race | Unknown | + + + | Ethnic Group | Unknown | + + + Author + + + | Author | [facility] | + + + | Organization | [facility] | + + + | Address | Unknown | + + + | Phone | Unavailable | + + + Support + + + + + | Name | Relationship | Address | Phone | + + + + + | James Castro | ECON | [address] | | | | | [place] | | | | | [address] | | + + + + + Care Team Providers + +------+ + | Care Home Service Consultant Name | Role | Phone | + [...] | [employer]AN | ODS | [id number] | | | | | | HEALTH | | | | | | | PLAN | | | | | + +--------+ +------+ + + | [employer] | [place] | [id number] | | [phone] [employer] [phone] | | ADMINISTRATION | [place] | | | [phone] | | | [address] | | | | [address] [place] | | | [place] | | | | [phone] | | | ON | | | [...] | Self | [birth year] | Home: | [address] | | | al/Fam | | 1930 | +- | [place] [address] | | | [place]ara | | | [address] | | + +--------+ +--------+ + + | JAMES CASTRO | Vetera | Self | [birth year] | Home: | [address] | | | ns | | 1930 | +- | [place] | | | Admini | | | [phone] | [address] | | | strati | | | | | | | on | | | | | + +--------+ +--------+ + +
--- OUTSIDE RECORDS SUMMARY | ~2019-04-03 | XMS | Encounter Summary ---
Demographics + + + | Address | [address] [place] [address] RD | | | [place] [address] | + + + | Home Phone | | + + + | Preferred Language | Unknown | + + + | Marital Status | | + + + | Bahai Affiliation | 1077 | + + + | Race | Unknown | + + + | Ethnic Group | Unknown | + + + Author + + + | Author | [facility] | | | and [place] | + + + | Organization | [facility] | | | and [place] | + + + | Address | Unknown | + + + | Phone | Unavailable | + + + Support + + + + + | Name | Relationship | Address | Phone | + + + + + | MatthewElaine | ECON | [address] | | | | | [place] | | | | | [address] | | + + + + + Care Team Providers + +------+ + | Care Properties Supervisor Name | Role | Phone | + [...] | | | | | burning | HYPERBARIC TECHNICIAN [address] | [address] | | | | | sensation | [place] | [address] [place] | | | | | [address] | [address] | [address] [place] | | | | | esophagus | [place], [place] | [place] | | | | | Procedures | [address] | [address] | | | | | egd consult | Phone: | Phone: | | | | | | [phone] | [phone] | | | | | | Fax: | Fax: | | | | | | [phone] | [phone] | +--------+--------+ + + + + Encounter [...] | [address] [place] | [place], [address] | abdominal location | | | | [address] [place], [place] | [place] | (Primary Dx); Atrial | | | | [address] | [address] | fibrillation, | | | | [phone] | | unspecified type | | | [...] rx given to patient to take to [place] [facility] for bowel prep and Zofran; info [...] <1 0 - 3 Final UA Specific [place], External 12/26/2018 1.003 1.001 - 1.03 Final [...] Request - OR/EN DO/ASC/OB: EGD, COLONOSCOPY 4. group home (current) use of anticoagulants Case Request - [...] | 05/04/ | Office | Gastroenterology | [facility], | | | 2018 | Visit | | MIQUEL NewmanP [address] | | | | | | [address] | | | | | | [place] | | | | | | [address] | | | | | | | | +--------+---------+ + + + documented as of this encounter Visit Diagnoses + + | Diagnosis | + + | Abdominal pain, unspecified abdominal location - Primary | + + | Atrial fibrillation, unspecified type (HCC) | + + | Chronic obstructive pulmonary disease, unspecified COPD type (HCC) | + + | group home (current) use of anticoagulants Long-term (current) use of anticoagulants | + + documented in this encounter
--- OUTSIDE RECORDS SUMMARY | ~2019-04-03 | XMS | Encounter Summary ---
Demographics + + + | Address | [id number] [place] [address] RD | | | [place] [address] | + + + | Home Phone | | + + + | Preferred Language | Unknown | + + + | Marital Status | | + + + | Temple Affiliation | 1077 | + + + | Race | Unknown | + + + | Ethnic Group | Unknown | + + + Author + + + | Author | [facility] | | | and [place] | + + + | Organization | [facility] | | | and [place] | + + + | Address | Unknown | + + + | Phone | Unavailable | + + + Support + + + + + | Name | Relationship | Address | Phone | + + + + + | Elaine Castro | ELA | [address] | | | | | [place] | | | | | [phone] | | + + + + + Care Team Providers + +------+ + | Care Manager Enrollment Name | Role | Phone | + +------+ + | Curt Chanel | PCP | | + +------+ + Encounter Details +--------+ + + + + | Date | Type | Department | Care Team | Description | +--------+ + + + + | 02/13/ | Abstract | [facility] | Provider, | | | 2018 | | GASTROENTEROLOGY | MD [address] | | | | | [address] [facility] | Daniel Yang | | | | | [address] | [place] [address] | | | | | [address] | | | | | | [phone] | | | +--------+ + + + + Social History + +-------+ +--------+------+ | Tobacco Use | Types | Packs/Day | Years | Date | | | | | Used | | + +-------+ +--------+------+ | Never Smoker | | | | | + +-------+ +--------+------+ + + +---------+ + | Alcohol Use [...] | 05/04/ | Office | Gastroenterology | [facility], | | | 2019 | Visit | | [address] | | | | | | [address] | | | | | | [place] | | | | | | [address] | | | | | | | | +--------+---------+ + + + documented as of this encounter Procedures + +--------+ + + + | Procedure Name | Priori | Date/Time | Associated Diagnosis | Comments | | | ty | | | | + +--------+ + + + | EXTERNAL LAB: BUN | Routin | 12/26/2018 | | Results for this | | | e | | | procedure are in the | | | | | | results section. | + +--------+ + + + | EXTERNAL LAB: | Routin | 12/26/2018 | | Results for this | | GLUCOSE | e | | | procedure are in the | | | | | | results section. | + +--------+ + + + | EXTERNAL LAB: ALT | Routin | 12/26/2018 | | Results for this | | | e | | | procedure are in the | | | | | | results section. | + +--------+ + + + | EXTERNAL LAB: AST | Routin | 12/26/2018 | | Results for this | | | e | | | procedure are in the | | | | | | results section. | + +--------+ + + + | EXTERNAL LAB: | Routin | 12/26/2018 | | Results for this | | ALKALINE PHOSPHATASE | e | | | procedure are in the | | | | | | results section. | + +--------+ + + + | EXTERNAL LAB: | Routin | 12/26/2018 | | Results for this | | BILIRUBIN, TOTAL | e | | | procedure are in the | | | | | | results section. | + +--------+ + + + | EXTERNAL LAB: | Routin | 12/26/2018 | | Results for this | | ALBUMIN | e | | | procedure are in the | | | | | | results section. | + +--------+ + + + | EXTERNAL LAB: | Routin | 12/26/2018 | | Results for this | | PROTEIN, TOTAL | e | | | procedure are in the | | | | | | results section. | + +--------+ + + + | EXTERNAL LAB: | Routin | 12/26/2018 | | Results for this | | CALCIUM | e | | | procedure are in the | | | | | | results section. | + +--------+ + + + | EXTERNAL LAB: CARBON | Routin | 12/26/2018 | | Results for this | | DIOXIDE | e | | | procedure are in the | | | | | | results section. | + +--------+ + + + | EXTERNAL LAB: | Routin | 12/26/2018 | | Results for this | | CHLORIDE | e | | | procedure are in the | | | | | | results section. | + +--------+ + + + | EXTERNAL LAB: | Routin | 12/26/2018 | | Results for this | | POTASSIUM | e | | | procedure are in the | | | | | | results section. | + +--------+ + + + | EXTERNAL LAB: SODIUM | Routin | 12/26/2018 | | Results for this | | | e | | | procedure are in the | | | | | | results section. | + +--------+ + + + | EXTERNAL LAB: | Routin | 12/26/2018 | | Results for this | | URINALYSIS | e | | | procedure are in the | | | | | | results section. | + +--------+ + + + | EXTERNAL LAB: CBC | Routin | 12/26/2018 | | Results for this | | | e | | | procedure are in the | | | | | | results section. | + +--------+ + + + | EXTERNAL LAB: TSH | Routin | 12/26/2018 | | Results for this | | | e | | | procedure are in the | | | | | | results section. | + +--------+ + + + | EXTERNAL LAB: | Routin | 12/26/2018 | | Results for this | | TRIGLYCERIDES | e | | | procedure are in the | | | | | | results section. | + +--------+ + + + | EXTERNAL LAB: | Routin | 12/26/2018 | | Results for this | | CHOLESTEROL, TOTAL | e | | | procedure are in the | | | | | | results section. | + +--------+ + + + | EXTERNAL LAB: | Routin | 12/26/2018 | | Results for this | | CHOLESTEROL, LDL | e | | | procedure are in the | | | | | | results section. | + +--------+ + + + | EXTERNAL LAB: EGFR | Routin | 12/26/2018 | | Results for this | | | e | | | procedure are in the | | | | | | results section. | + +--------+ + + + | EXTERNAL LAB: | Routin | 12/26/2018 | | Results for this | | CREATININE | e | | | procedure are in the | | | | | | results section. | + +--------+ + + + | LIPID PANEL | Routin | 12/26/2018 | | Results for this | | | e | | | procedure are in the | | | | | | results section. | + +--------+ + + + | URINALYSIS, REFLEX | Routin | 12/26/2018 | | Results for this | | MICROSCOPIC AND/OR | e | | | procedure are in the | | CULTURE | | | | results section. | + +--------+ + + + | CBC WITH | Routin | 12/26/2018 | | Results for this | | DIFFERENTIAL | e | | | procedure are in the | | | | | | results section. | + +--------+ + + + | T4, FREE | Routin | 12/26/2018 | | Results for this | | | e | | | procedure are in the | | | | | | results section. | + +--------+ + + + | COMPREHENSIVE | Routin | 12/26/2018 | | Results for this | | METABOLIC PANEL | e | | | procedure are in the | | | | | | results section. | + +--------+ + + + documented in this encounter Results Urinalysis, Reflex Microscopic and/or Culture (12/26/2018) + + + + + + | Component | Value | Ref Range | Performed | Pathologist | | | | | At | Signature | + + + + + + | Color | Colorless | | | | + + + + + + | Clarity | Clear | | | | + + + + + + | Bilirubin, | Negative | Negative | | | | Urine | | | | | + + + + + + | Urobilinoge | <2.0 mg/dL | < 0.2 mg/dL, | | | | n, Urine | | 1.0 mg/dL, 4.0 | | | | | | mg/dL, Normal, | | | | | | 1.0 E.U./dL, | | | | | | 0.2 E.U./dL, | | | | | | 0.2 mg/dL, | | | | | | Negative, 1 | | | | | | mg/dL, <2.0 | | | | | | mg/dL | | | + + + + + + | Nitrite, | Negative | Negative | | | | Urine | | | | | + + + + + + | WBC | <1 | 0 - 5 | | | + + + + + + + + | Specimen | + + | Urine | + + T4, Free (12/26/2018) + +-------+ + + + | Component | Value | Ref Range | Performed | Pathologist | | | | | At | Signature | + +-------+ + + + | FREE T4 | 1.5 | 0.6 - 2 | | | | (REF) | | | | | + +-------+ + + + + + | Specimen | + + | Blood | + + CBC with Differential (12/26/2018) + +-------+ + + + | Component | Value | Ref Range | Performed | Pathologist | | | | | At | Signature | + +-------+ + + + | MCH | 29.0 | 26.0 - 33.0 pg | | | + +-------+ + + + | MCHC | 32.1 | 31.0 - 37.0 | | | | | | g/dL | | | + +-------+ + + + | % Basophils | 1.0 | 0.0 - 2.0 % | | | + +-------+ + + + + + | Specimen | + + | Blood | + + Lipid Panel (12/26/2018) + +---------+ + + + | Component | Value | Ref Range | Performed | Pathologist | | | | | At | Signature | + +---------+ + + + | Chol/HDL | 2.8 (A) | 3.7 - 6.7 | | | | Ratio | | | | | + +---------+ + + + | Non HDL | 76 | 0 - 130 | | | | Chol. | | | | | | (LDL+VLDL) | | | | | + +---------+ + + + + + | Specimen | + + | Blood | + + Comprehensive Metabolic Panel (12/26/2018) + +---------+ + + + | Component | Value | Ref Range | Performed | Pathologist | | | | | At | Signature | + +---------+ + + + | Globulin | 3.6 (A) | 2.3 - 3.5 | | | + +---------+ + + + + + | Specimen | + + | Blood | + + External Lab: TREY (12/26/2018) + +-------+ + + + | Component | Value | Ref Range | Performed | Pathologist | | | | | At | Signature | + +-------+ + + + | BUN, | 13 | 7 - 23 | EXTERNAL | | | External | | | LAB | | + +-------+ + + + + +---------+ + + | Performing | Address | City/State/Zipcode | Phone Number | | Organization | | | | + +---------+ + + | EXTERNAL LAB | | | | + +---------+ + + External Lab: Glucose (12/26/2018) + +-------+ + + + | Component | Value | Ref Range | Performed | Pathologist | | | | | At | Signature | + +-------+ + + + | Glucose, | 101 | 71 - 109 | EXTERNAL | | | External | | | LAB | | + +-------+ + + + + +---------+ + + | Performing | Address | City/State/Zipcode | Phone Number | | Organization | | | | + +---------+ + + | EXTERNAL LAB | | | | + +---------+ + + External Lab: ALT (12/26/2018) + +-------+ + + + | Component | Value | Ref Range | Performed | Pathologist | | | | | At | Signature | + +-------+ + + + | ALT, | 15 | 9 - 57 | EXTERNAL | | | External | | | LAB | | + +-------+ + + + + +---------+ + + | Performing | Address | City/State/Zipcode | Phone Number | | Organization | | | | + +---------+ + + | EXTERNAL LAB | | | | + +---------+ + + External Lab: AST (12/26/2018) + +-------+ + + + | Component | Value | Ref Range | Performed | Pathologist | | | | | At | Signature | + +-------+ + + + | AST, | 17 | 14 - 44 | EXTERNAL | | | External | | | LAB | | + +-------+ + + + + +---------+ + + | Performing | Address | City/State/Zipcode | Phone Number | | Organization | | | | + +---------+ + + | EXTERNAL LAB | | | | + +---------+ + + External Lab: Alkaline Phosphatase (12/26/2018) + +-------+ + + + | Component | Value | Ref Range | Performed | Pathologist | | | | | At | Signature | + +-------+ + + + | ALP, | 124 | 45 - 129 | EXTERNAL | | | External | | | LAB | | + +-------+ + + + + +---------+ + + | Performing | Address | City/State/Zipcode | Phone Number | | Organization | | | | + +---------+ + + | EXTERNAL LAB | | | | + +---------+ + + External Lab: Bilirubin, Total (12/26/2018) + +-------+ + + + | Component | Value | Ref Range | Performed | Pathologist | | | | | At | Signature | + +-------+ + + + | Bilirubin, | 0.6 | 0.2 - 1.3 | EXTERNAL | | | Total, | | | LAB | | | External | | | | | + +-------+ + + + + +---------+ + + | Performing | Address | City/State/Zipcode | Phone Number | | Organization | | | | + +---------+ + + | EXTERNAL LAB | | | | + +---------+ + + External Lab: Albumin (12/26/2018) + +---------+ + + + | Component | Value | Ref Range | Performed | Pathologist | | | | | At | Signature | + +---------+ + + + | Albumin, | 4.1 (A) | 2.3 - 3.5 | EXTERNAL | | | External | | | LAB | | + +---------+ + + + + +---------+ + + | Performing | Address | City/State/Zipcode | Phone Number | | Organization | | | | + +---------+ + + | EXTERNAL LAB | | | | + +---------+ + + External Lab: Protein, Total (12/26/2018) + +-------+ + + + | Component | Value | Ref Range | Performed | Pathologist | | | | | At | Signature | + +-------+ + + + | Protein, | 4.1 | 3.5 - 5 | EXTERNAL | | | Total, | | | LAB | | | External | | | | | + +-------+ + + + + +---------+ + + | Performing | Address | City/State/Zipcode | Phone Number | | Organization | | | | + +---------+ + + | EXTERNAL LAB | | | | + +---------+ + + External Lab: Calcium (12/26/2018) + +-------+ + + + | Component | Value | Ref Range | Performed | Pathologist | | | | | At | Signature | + +-------+ + + + | Calcium, | 8.7 | 8.4 - 10.5 | EXTERNAL | | | External | | | LAB | | + +-------+ + + + + +---------+ + + | Performing | Address | City/State/Zipcode | Phone Number | | Organization | | | | + +---------+ + + | EXTERNAL LAB | | | | + +---------+ + + External Lab: Carbon Dioxide (12/26/2018) + +-------+ + + + | Component | Value | Ref Range | Performed | Pathologist | | | | | At | Signature | + +-------+ + + + | Carbon | 30 | 21 - 32 | EXTERNAL | | | Dioxide, | | | LAB | | | External | | | | | + +-------+ + + + + +---------+ + + | Performing | Address | City/State/Zipcode | Phone Number | | Organization | | | | + +---------+ + + | EXTERNAL LAB | | | | + +---------+ + + External Lab: Chloride (12/26/2018) + +-------+ + + + | Component | Value | Ref Range | Performed | Pathologist | | | | | At | Signature | + +-------+ + + + | Chloride, | 101 | 98 - 107 | EXTERNAL | | | External | | | LAB | | + +-------+ + + + + +---------+ + + | Performing | Address | City/State/Zipcode | Phone Number | | Organization | | | | + +---------+ + + | EXTERNAL LAB | | | | + +---------+ + + External Lab: Potassium (12/26/2018) + +-------+ + + + | Component | Value | Ref Range | Performed | Pathologist | | | | | At | Signature | + +-------+ + + + | Potassium, | 3.8 | 3.5 - 5.1 | EXTERNAL | | | External | | | LAB | | + +-------+ + + + + +---------+ + + | Performing | Address | City/State/Zipcode | Phone Number | | Organization | | | | + +---------+ + + | EXTERNAL LAB | | | | + +---------+ + + External Lab: Sodium (12/26/2018) + +-------+ + + + | Component | Value | Ref Range | Performed | Pathologist | | | | | At | Signature | + +-------+ + + + | Sodium, | 141 | 133 - 145 | EXTERNAL | | | External | | | LAB | | + +-------+ + + + + +---------+ + + | Performing | Address | City/State/Zipcode | Phone Number | | Organization | | | | + +---------+ + + | EXTERNAL LAB | | | | + +---------+ + + External Lab: Urinalysis (12/26/2018) + + + + + + | Component | Value | Ref Range | Performed | Pathologist | | | | | At | Signature | + + + + + + | UA Blood, | Negative | | EXTERNAL | | | External | | | LAB | | + + + + + + | UA Glucose, | Negative | | EXTERNAL | | | External | | | LAB | | + + + + + + | UA Ketones, | Negative | | EXTERNAL | | | External | | | LAB | | + + + + + + | UA Ph, | 7 | 5 - 8 | EXTERNAL | | | External | | | LAB | | + + + + + + | UA | Negative | | EXTERNAL | | | Proteins, | | | LAB | | | External | | | | | + + + + + + | UA RBC, | <1 | 0 - 3 | EXTERNAL | | | External | | | LAB | | + + + + + + | UA Specific | 1.003 | 1.001 - 1.03 | EXTERNAL | | | Trail, | | | LAB | | | External | | | | | + + + + + + | UA | Negative | | EXTERNAL | | | Leukocyte | | | LAB | | | Esterase, | | | | | | External | | | | | + + + + + + + +---------+ + + | Performing | Address | City/State/Zipcode | Phone Number | | Organization | | | | + +---------+ + + | EXTERNAL LAB | | | | + +---------+ + + External Lab: CBC (12/26/2018) + +-------+ + + + | Component | Value | Ref Range | Performed | Pathologist | | | | | At | Signature | + +-------+ + + + | WBC, | 8 | 3 - 10.6 | EXTERNAL | | | External | | | LAB | | + +-------+ + + + | HGB, | 12.4 | 11.8 - 17.1 | EXTERNAL | | | External | | | LAB | | + +-------+ + + + | HCT, | 38.6 | 36 - 51 | EXTERNAL | | | External | | | LAB | | + +-------+ + + + | PLT, | 178 | 150 - 400 | EXTERNAL | | | External | | | LAB | | + +-------+ + + + | Neutrophils | 65.4 | 44 - 74 | EXTERNAL | | | %, | | | LAB | | | External | | | | | + +-------+ + + + | Lymphocytes | 22.8 | 15 - 42 | EXTERNAL | | | %, | | | LAB | | | External | | | | | + +-------+ + + + | Monocytes | 7.7 | 4 - 13 | EXTERNAL | | | %, External | | | LAB | | + +-------+ + + + | Eosinophils | 2.8 | 0 - 7 | EXTERNAL | | | %, | | | LAB | | | External | | | | | + +-------+ + + + | Neutrophils | 5.2 | 1.2 - 7 | EXTERNAL | | | , Absolute, | | | LAB | | | External | | | | | + +-------+ + + + | Lymphocytes | 1.8 | 0.6 - 3.4 | EXTERNAL | | | , Absolute, | | | LAB | | | External | | | | | + +-------+ + + + | Monocytes, | 0.6 | 0.2 - 1 | EXTERNAL | | | Absolute, | | | LAB | | | External | | | | | + +-------+ + + + | Eosinophils | 0.1 | 0 - 0.2 | EXTERNAL | | | , Absolute | | | LAB | | + +-------+ + + + | Basophils, | 0.1 | 0 - 0.2 | EXTERNAL | | | Absolute | | | LAB | | + +-------+ + + + | RBC, | 4.28 | 3.86 - 5.7 | EXTERNAL | | | External | | | LAB | | + +-------+ + + + | MCV, | 90 | 81 - 102 | EXTERNAL | | | External | | | LAB | | + +-------+ + + + | RDW, | 13.3 | 11.2 - 16.2 | EXTERNAL | | | External | | | LAB | | + +-------+ + + + + +---------+ + + | Performing | Address | City/State/Zipcode | Phone Number | | Organization | | | | + +---------+ + + | EXTERNAL LAB | | | | + +---------+ + + External Lab: TSH (12/26/2018) + + + + + + | Component | Value | Ref Range | Performed | Pathologist | | | | | At | Signature | + + + + + + | TSH, | 5.72 (A) | 0.3 - 4.25 | EXTERNAL | | | External | | | LAB | | + + + + + + + + | Specimen | + + | Blood | + + + +---------+ + + | Performing | Address | City/State/Zipcode | Phone Number | | Organization | | | | + +---------+ + + | EXTERNAL LAB | | | | + +---------+ + + External Lab: Triglycerides (12/26/2018) + +--------+ + + + | Component | Value | Ref Range | Performed | Pathologist | | | | | At | Signature | + +--------+ + + + | Triglycerid | 35 (A) | 51 - 152 | EXTERNAL | | | es, | | | LAB | | | External | | | | | + +--------+ + + + + + | Specimen | + + | Blood | + + + +---------+ + + | Performing | Address | City/State/Zipcode | Phone Number | | Organization | | | | + +---------+ + + | EXTERNAL LAB | | | | + +---------+ + + External Lab: Cholesterol, Total (12/26/2018) + +-------+ + + + | Component | Value | Ref Range | Performed | Pathologist | | | | | At | Signature | + +-------+ + + + | Cholesterol | 84 | 51 - 152 mg/dl | EXTERNAL | | | , Total, | | | LAB | | | External | | | | | + +-------+ + + + + + | Specimen | + + | Blood | + + + +---------+ + + | Performing | Address | City/State/Zipcode | Phone Number | | Organization | | | | + +---------+ + + | EXTERNAL LAB | | | | + +---------+ + + External Lab: Cholesterol, LDL (12/26/2018) + +-------+ + + + | Component | Value | Ref Range | Performed | Pathologist | | | | | At | Signature | + +-------+ + + + | LDL | 59 | 0 - 130 | EXTERNAL | | | Cholesterol | | | LAB | | | , External | | | | | + +-------+ + + + + + | Specimen | + + | Blood | + + + +---------+ + + | Performing | Address | City/State/Zipcode | Phone Number | | Organization | | | | + +---------+ + + | EXTERNAL LAB | | | | + +---------+ + + External Lab: eGFR (12/26/2018) + +-------+ + + + | Component | Value | Ref Range | Performed | Pathologist | | | | | At | Signature | + +-------+ + + + | eGFR, | >60 | 60 - 99,999 | EXTERNAL | | | External | | | LAB | | + +-------+ + + + + + | Specimen | + + | Blood | + + + +---------+ + + | Performing | Address | City/State/Zipcode | Phone Number | | Organization | | | | + +---------+ + + | EXTERNAL LAB | | | | + +---------+ + + External Lab: Creatinine (12/26/2018) + +-------+ + + + | Component | Value | Ref Range | Performed | Pathologist | | | | | At | Signature | + +-------+ + + + | Creatinine, | 1.1 | 0.8 - 1.5 | EXTERNAL | | | External | | | LAB | | + +-------+ + + + + + | Specimen | + + | Blood | + + + +---------+ + + | Performing | Address | City/State/Zipcode | Phone Number | | Organization | | | | + +---------+ + + | EXTERNAL LAB | | | | + +---------+ + + documented in this encounter Visit Diagnoses Not on filedocumented in this encounter"
--- OUTSIDE RECORDS SUMMARY | ~2019-04-03 | XMS | Encounter Summary ---
Demographics + + + | Address | [address] [place] [address] RD | | | [place] [address] | + + + | Home Phone | | + + + | Preferred Language | Unknown | + + + | Marital Status | | + + + | Faith Affiliation | 1077 | + + + | Race | Unknown | + + + | Ethnic Group | Unknown | + + + Author + + + | Author | [facility] | | | [facility] [place] | + + + | Organization | [facility] | | | [facility] [place] | + + + | Address | Unknown | + + + | Phone | Unavailable | + + + Support + + + + + | Name | Relationship | Address | Phone | + + + + + | Elaine Castro | ECON | [address] | | | | | [place] | | | | | [address] | | + + + + + Care Team Providers + +------+ + | Care Cash Manager Name | Role | Phone | [...] | | type (HCC) | | [place] [address] | | | | | Chronic | | Phone: | | | | | obstructive | | [phone] | | | | | pulmonary | | Fax: | | | | | disease, | | [phone] | | | | | unspecified | [...] | | | | | | | NE | | | | | | | ESOPHAGOGAST | | | | | | | RODUODENOSCO | | | | | | | PY TRANSORAL | | | | | | | DIAGNOSTIC | | | | | | | NE EGD | | | | | | | TRANSORAL | | | | | | | BIOPSY | | | | | | | SINGLE/MULTI | | | | | | | PLE NE | | | | | | | COLONOSCOPY | | | | | | | FLX DX | | | | | | | W/COLLJ SPEC | | | | | | | WHEN PFRMD | | | | | | | NE | | | | | | | COLONOSCOPY | | | | | | | W/BIOPSY | | | | | | | SINGLE/MULTI | | | | | | | PLE NE | | | | | | | COLSC FLX | | | | | | | W/RMVL OF | | | | | | | TUMOR POLYP | | | | | | | LESION SNARE | | | | | | | TQ NE | | | | | | | [...] + + | 03/31/ | Hospital | [facility] | Raghavendra De La Rosa | Chronic obstructive | | 2019 | Encounter | [facility] | MD Eron [address] | pulmonary disease, | | | | [address] | [address] [place] | unspecified COPD | | | | [place], [place] | [place] [address] | type (HCC); Long | | | | [address] | [phone] | term (current) use | | | | [phone] | | of anticoagulants; | | | | | | Abdominal pain, | | | | | | unspecified | | | | | | abdominal location; | | | | | | Diarrhea, | | | | | | unspecified type | +--------+ + + + + Social [...] 03/31/2019800 PDT | + + + + documented in this encounter Discharge Instructions Instructions Nadira Nogueira RN - 03/31/2019 Gastritis (Adult) Gastritis isinflammation andirritation of the stomach lining. You can have it for a brianna rt time (acute) or be long lasting (chronic). Infection with bacteria calledH pylori most often causes gastritis.More than a third of people in the [place] have these bacteria in their bodies. In many cases,H pyloricauses no problems or symptoms. In some people, though, th e infection irritates the stomach lining and causes gastritis. H. pylori may be diagnosed th rough blood, stool, or breath tests, we well as through biopsy during an endoscopy. Other ca uses of stomach irritation include drinking alcohol, smoking or chewing tobacco, or taking p ain-relieving medicines called NSAIDs (such as aspirin or ibuprofen). Certain drugs (such as cocaine) and immune conditions can also cause gastritis. Symptoms of gastritis can include: Belly pain or bloating Feeling full quickly Loss of appetite Nausea or vomiting Vomiting blood or having black stools Feeling more tired than usual An inflamed and irritated stomach lining is more likely to develop a sore called an ulcer. To help prevent this, gastritis should be treated. Home care If needed, our healthcare provider may prescribe medicines. If you haveH pyloriinfectio n, treating it will likely relieve your symptoms. Other changes can help reduce stomach irri tation and help it heal. If you have been prescribed medicines forH pyloriinfection, take them as directed. T jennie all of the medicine until it is finished or your healthcare provider tells you to stop, even if you feel better. Your healthcare provider may advise you not to take NSAIDs. If you take daily aspirin fo r your heart or other medical reasons, do not stop without talking to your healthcare provid er first. Don't drink alcohol. Stop smoking. Smoking can irritate the stomach and delay healing. As much as possible, s abelino away from second hand smoke. Follow-up care Follow up with your healthcare provider, or as advised by our staff. You may need testing t o check for inflammation or an ulcer. When to seek medical advice Call your healthcare provider for any of the following: Stomach pain that gets worse or moves to the lower right belly (appendix area) Chest pain that appears or gets worse, or spreads to the back, neck, shoulder, or arm Frequent vomiting (can t keep down liquids) Blood in the stool or vomit (red or black in color) Feeling weak or dizzy Shortness of breath Unexplained weight loss Fever of 100.4F (38C) or higher, or as directed by your healthcare provider Date Last Reviewed: 12/26/201719995564-4571 [employer]. [address] [place] [address], [place] [address]. All righ ts reserved. This information is not intended as a substitute for professional medical care. Always follow your healthcare professional's instructions. documented in this encounter Medications at Time of Discharge + + + +---------+ + + | Medication | Sig | Dispensed | Refills | Start | End Date | | | | | | Date | | + + + +---------+ + + | albuterol 90 | Inhale 2 puffs into | | 0 | | | | mcg/puff inhaler | the lungs every 4 | | | | | | | hours as needed for | | | | | | | Wheezing. | | | | | + + + +---------+ + + | amLODIPine | Take 2.5 mg by mouth | | 0 | | | | (NORVASC) 2.5 mg | Daily. | | | | | | tablet | | | | | | + + + +---------+ + + | apixaban (ELIQUIS) | Take 5 mg by mouth 2 | | 0 | | | | 5 mg tablet | times daily. | | | | | + + + +---------+ + + | | Place 1 drop into | | 0 | | | | carboxymethylcellulo | both eyes 4 times | | | | | | se (REFRESH TEARS) | daily. | | | | | | 0.5% ophthalmic | | | | | | | solution | | | | | | + + + +---------+ + + | cilostazol | Take 100 mg by mouth | | 0 | | | | (PLETAL) 100 mg | 2 times daily. | | | | | | tablet | | | | | | + + + +---------+ + + | fluorometholone | Place 2 drops into | | 0 | | | | (FML) 0.1% | both eyes 2 times | | | | | | ophthalmic | daily. | | | | | | suspension | | | | | | + + + +---------+ + + | folic acid 1 mg | Take 1 mg by mouth | | 0 | | | | tablet | Daily. | | | | | + + + +---------+ + + | furosemide (LASIX) | Take 40 mg by mouth | | 0 | | | | 40 mg tablet | 2 times daily. | | | | | + + + +---------+ + + | guaiFENesin 200 MG | Take 400 mg by mouth | | 0 | | | | tablet | 3 times daily. | | | | | + + + +---------+ + + | ipratropium | 2 sprays by Nasal | | 0 | | | | (ATROVENT) 0.06% | route 3 times daily. | | | | | | nasal spray | | | | | | + + + +---------+ + + | metoprolol | Take 150 mg by mouth | | 0 | | | | tartrate (LOPRESSOR) | 2 times daily. | | | | | | 100 mg tablet | | | | | | + + + +---------+ + + | omeprazole | Take 40 mg by mouth | | 0 | | | | (PRILOSEC) 20 mg | every morning | | | | | | capsule | (before breakfast). | | | | | + + + +---------+ + + | ondansetron | As needed for | 2 | 0 | 03/02/20 | | | (ZOFRAN) 4 mg tablet | nausea; stop prep; | tablet | | 19 | | | | take 1 tablet; wait | | | | | | | 30 min then resume | | | | | | | prep; repeat 1x prn | | | | | + + + +---------+ + + | potassium chloride | Take 20 mEq by mouth | | 0 | | | | (KLOR-CON) 10 MEQ | 2 times daily. | | | | | | ER tablet | | | | | | + + + +---------+ + + | Psyllium 100 % | Take 4 g by mouth | 368 g | 2 | 03/02/20 | | | POWD | Daily. | | | 19 | | + + + +---------+ + + | rosuvastatin | Take 10 mg by mouth | | 0 | | | | (CRESTOR) 20 mg | nightly. | | | | | | tablet | | | | | | + + + +---------+ + + | sucralfate | Take 1 g by mouth 3 | | 0 | | | | (CARAFATE) 1 g | times daily. | | | | | | tablet | | | | | | + + + +---------+ + + documented as of this encounter Plan of Treatment +--------+---------+ + + + | Date | Type | Specialty | Care Team | Description | +--------+---------+ + + + | 05/04/ | Office | Gastroenterology | [facility], | | | 2019 | Visit | | ELSIE Newman [address] | | | | | | [address] | | | | | | [place] | | | | | | [address] | | | | | | | [...] + + documented in this encounter Results EGD (03/31/2019 9:12 PDT) + + | Specimen | + + | | + + + + ---+ | Narrative | Performed At | + + ---+ | | [facility] | | GastroenterologyPatient Name: James CastroProcedure Date: 03/31/2019 | [facility]ATION | | 9:12 AMMRN: [id number] #: [id number] of : | | | 2Admit Type: AmbulatoryAge: 89Room: Endo Room 2Gender: | | | MaleNote Status: FinalizedAttending MD: RAGHAVENDRA DE LA ROSA , | | | MDProcedure: Upper GI | | | endoscopyIndications: Generalized abdominal pain, | | | DiarrheaProviders: RAGHAVENDRA DE LA ROSA MD, Prisca | | | DIANA Braswell, Yaneth Oconnell, | | | Digital Media Representative, Eliceo Patterson MD (Anesthesia Staff)Referring | | [...] AMScope | | | Out: 9:29:18 AM [facility], [address] | | | [place] [address] | | | - Resume previous diet. [...] |Scope Out: 9:29:18 AM | | | [facility], [address] [place], [place] | | | [address] | | + + ---+ + +---------+ [...] | [facility] | | GastroenterologyPatient Name: James CastorProcedure Date: 03/31/2019 | [place]OVATION | | 9:11 AMMRN: [id number] #: [id number] of : | | | 2Admit Type: AmbulatoryAge: 89Room: Endo Room 2Gender: | | | MaleNote Status: FinalizedAttending MD: RAGHAVENDRA DE LA ROSA , | | | MDProcedure: ColonoscopyIndications: | | | Generalized abdominal pain, Chronic diarrheaProviders: | | | RAGHAVENDRA DE LA ROSA MD, Prisca Braswell RN, Yaneth | | | Anish, Digital Media Representative, Eliceo Salazar | | | MD Leonardo (Anesthesia Staff)Referring MD: Curt Chanel | | | (Referring MD), Paty [place], | | | MANAGER OF GLOBAL (Referring | | | MD)Medicines: Monitored Anesthesia [...] evaluated | | | using the BBPS ([place] Bowel Preparation Scale) with scores | | [...] | | 9:31:10 AMScope Out: 9:46:59 AM [facility] | | | [place], [address] [place] [address] | | | - Await pathology results. [...] |Scope Out: 9:46:59 AM | | | [facility], [address] [place] [address] | | | [address] | | + + ---+ + +---------+ [...] | pulmonary disease, unspecified COPD type), Z79.01 (care home [current] | | | use of anticoagulants), [...] for specific diagnostic | | | abnormality. JVR:[facility]:C2NR GROSS DESCRIPTION: Three specimens | | | [...] component was performed by | | | [employer], [address] [place] [address] (Medical | | | Director: Hellen Cortez MD; CLIA# [id number]). Professional | | | interpretation was performed by [employer] [place] | | | [facility], [address] [place] [address] | | | [address] (Systems Development Consultant: Rajeev Veloz M.D.). | | | Diagnostician: Rajeev Veloz MD Pathologist Electronically | | | Signed 04/01/2019 | | + + + + +---------+ + + | Performing | Address | City/State/[facility] Psychiatric Centercode | Phone Number | | Organization | | | | + +---------+ + + | [facility] | | | | | [employer] | | | | + +---------+ + + documented in this encounter Visit Diagnoses + + | Diagnosis | + + | Chronic obstructive pulmonary disease, unspecified COPD type (HCC) | + + | jail (current) use of anticoagulants Long-term (current) use of anticoagulants | + + | Abdominal pain, unspecified abdominal location | + + | Diarrhea, unspecified type | + + documented in this encounter Admitting Diagnoses + + | Diagnosis | + + | Atrial fibrillation, unspecified type (HCC) | + + | Chronic obstructive pulmonary disease, unspecified COPD type (HCC) | + + | 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 Long-term (current) use of anticoagulants | + + | Abdominal pain, unspecified abdominal location | + + documented in this encounter Administered Medications + +---------+ +--------+-------+------+ | Medication Order | MAR | Action | Dose | Rate | Site | | | Action | Date | | | | + +---------+ +--------+-------+------+ | lactated ringers (LR) infusion | New Bag | 03/31/20 | 1,000 | 100 | | | at 100 mL/hr, Intravenous, | | 19 8:26 | mLs | mL/hr | | | CONTINUOUS, Starting 03/31/19 | | PDT | | | | | at 0830, Pre-op | | | | | | + +---------+ +--------+-------+------+ +---+---+ | | | +---+---+ documented in this encounter
--- OUTSIDE RECORDS SUMMARY | ~2019-04-03 | XMS | Encounter Summary ---
Demographics + + + | Address | [address] [place] [address] RD | | | [place] [address] | + + + | Home Phone | | + + + | Preferred Language | Unknown | + + + | Marital Status | | + + + | Sabianist Affiliation | 1077 | + + + | Race | Unknown | + + + | Ethnic Group | Unknown | + + + Author + + + | Author | [facility] | | | [facility] [place] | + + + | Organization | [facility] | | | [facility] [place] | + + + | Address | Unknown | + + + | Phone | Unavailable | + + + Support + + + + + | Name | Relationship | Address | Phone | + + + + + | MatthewFrancoisea | ECON | [address] | | | | | [place] | | | | | [address] | | + + + + + Care Team Providers + +------+ + | Care Research Development Manager Name | Role | Phone | + +------+ + | Curt Chanel | PCP | | + +------+ + Reason for Visit + + + | Reason | Comments | + + + | Appointment | | + + + Encounter Details +--------+ + + + + | Date | Type | Department | Care Team | Description | +--------+ + + + + | 04/01/ | Telephone | [facility] | [facility], | Appointment | | 2019 | | GASTROENTEROLOGY | ELSIE Newman [address] | | | | | [address] [place] | [place], [address] | | | | | [address] [place], [place] | [place], [place] | | | | | [address] | [address] | | | | | [phone] | | | +--------+ + + + [...] | 05/04/ | Office | Gastroenterology | [facility], | | | 2019 | Visit | | ELSIE Newman [address] | | | | | | [address] | | | | | | [place] | | | | | | [address] | | | | | | | | +--------+---------+ + + + documented as of this encounter Visit Diagnoses Not on filedocumented in this encounter"
--- OUTSIDE RECORDS SUMMARY | ~2019-04-03 | XMS | Encounter Summary ---
Demographics + + + | Address | [address] [place] [address] RD | | | [place] [address] | + + + | Home Phone | | + + + | Preferred Language | Unknown | + + + | Marital Status | | + + + | Denominational Affiliation | 1077 | + + + | Race | Unknown | + + + | Ethnic Group | Unknown | + + + Author + + + | Author | [facility] | | | and [place] | + + + | Organization | [facility] | | | and [place] | + + + | Address | Unknown | + + + | Phone | Unavailable | + + + Support + + + + + | Name | Relationship | Address | Phone | + + + + + | MatthewElaine | ECON | [address] | | | | | [place] | | | | | [address] | | + + + + + Care Team Providers + +------+ + | Care In House Counsel Name | Role | Phone | + [...] | | | | | burning | PARA PROFESSIONAL [address] | [address] | | | | | sensation | [place] | [address] [place] | | | | | Ray's | [address] | [address] [place] | | | | | esophagus | [place], [place] | [place], [place] | | | | | Procedures | [address] | [address] | | | | | egd consult | Phone: | Phone: | | | | | | [phone] | [phone] | | | | | | Fax: | Fax: | | | | | | [phone] | [phone] | +--------+--------+ + + + + Encounter [...] | [address] [place] | [place], [address] | abdominal location | | | | [address] [place], [place] | [place], [place] | (Primary Dx); Atrial | | | | [address] | [address] | fibrillation, | | | | [phone] | | unspecified type | | | [...] rx given to patient to take to [place] [facility] for bowel prep and Zofran; info [...] a 89 y.o. male referred by ELSIE Jno for evaluation and tr eatment of epigastric [...] <1 0 - 3 Final [facility] Specific [place], External 12/26/2018 1.003 1.001 - 1.03 Final [...] Request - OR/EN DO/ASC/OB: EGD, COLONOSCOPY 4. skilled nursing (current) use of anticoagulants Case Request - [...] | 05/04/ | Office | Gastroenterology | [facility], | | | 2018 | Visit | | MIQUEL NewmanP [address] | | | | | | [place] | | | | | | [place] | | | | | | [address] | | | | | | | | +--------+---------+ + + + documented as of this encounter Visit Diagnoses + + | Diagnosis | + + | Abdominal pain, unspecified abdominal location - Primary | + + | Atrial fibrillation, unspecified type (HCC) | + + | Chronic obstructive pulmonary disease, unspecified COPD type (HCC) | + + | skilled nursing (current) use of anticoagulants Long-term (current) use of anticoagulants | + + documented in this encounter
--- OUTSIDE RECORDS SUMMARY | ~2019-04-03 | XMS | Clinical Summary ---
Demographics + + + | Address | [address] [place] [address] Rd | | | [place] [address] | + + + | Home Phone | | + + + | Preferred Language | Unknown | + + + | Marital Status | | + + + | Anglican Affiliation | 1077 | + + + | Race | Unknown | + + + | Ethnic Group | Unknown | + + + Author + + + | Author | [facility] | + + + | Organization | [facility] | + + + | Address | Unknown | + + + | Phone | Unavailable | + + + Support + + + + + | Name | Relationship | Address | Phone | + + + + + | James Castro | ECON | [address] | | | | | [place] | | | | | [address] | | + + + + + Care Team Providers + +------+ + | Care Material Chaser Name | Role | Phone | + [...] | [employer] | ODS | [id number] | | | | | | HEALTH | | | | | | | PLAN | | | | | + +--------+ +------+ + + | [employer] | VETER[employer] | [id number] | | [phone] [employer] [phone] | | ADMINISTRATION | [place] | | | [phone] | | | [address] | | | | [address] [place] | | | [place] | | | | [phone] | | | ON | | | [...] | Self | [birth year] | Home: | [address] | | | al/Fam | | 1930 | +- | [place] [address] | | | shara | | | [address] | | + +--------+ +--------+ + + | JAMES CASTRO | Vetera | Self | [birth year] | Home: | [address] | | | ns | | 1930 | +- | [place] | | | Admini | | | [address] | [address] | | | strati | | | | | | | on | | | | | + +--------+ +--------+ + +
--- OUTSIDE RECORDS SUMMARY | ~2019-04-03 | XMS | Encounter Summary ---
Demographics + + + | Address | [address] [place] [address] RD | | | [place] [address] | + + + | Home Phone | | + + + | Preferred Language | Unknown | + + + | Marital Status | | + + + | Baptism Affiliation | 1077 | + + + | Race | Unknown | + + + | Ethnic Group | Unknown | + + + Author + + + | Author | [facility] | | | and [place] | + + + | Organization | [facility] | | | and [place] | + + + | Address | Unknown | + + + | Phone | Unavailable | + + + Support + + + + + | Name | Relationship | Address | Phone | + + + + + | Elaine Castro | ECON | [address] | | | | | [place] | | | | | [address] | | + + + + + Care Team Providers + +------+ + | Care Outboard Motor Inspector Name | Role | Phone | + [...] | | type (HCC) | | [place] [address] | | | | | Chronic | | Phone: | | | | | obstructive | | [phone] | | | | | pulmonary | | Fax: | | | | | disease, | | [phone] | | | | | unspecified | [...] | | | | | | | ID | | | | | | | ESOPHAGOGAST | | | | | | | RODUODENOSCO | | | | | | | PY TRANSORAL | | | | | | | DIAGNOSTIC | | | | | | | ID EGD | | | | | | | TRANSORAL | | | | | | | BIOPSY | | | | | | | SINGLE/MULTI | | | | | | | PLE ID | | | | | | | COLONOSCOPY | | | | | | | FLX DX | | | | | | | W/COLLJ SPEC | | | | | | | WHEN PFRMD | | | | | | | ID | | | | | | | COLONOSCOPY | | | | | | | W/BIOPSY | | | | | | | SINGLE/MULTI | | | | | | | PLE ID | | | | | | | COLSC FLX | | | | | | | W/RMVL OF | | | | | | | TUMOR POLYP | | | | | | | LESION SNARE | | | | | | | TQ ID | | | | | | | [...] + + | 03/31/ | Hospital | [facility] | Raghavendra De La Rosa | Chronic obstructive | | 2019 | Encounter | MED CTR MP INTRA OP | MD Eron [address] | pulmonary disease, | | | | [address] | [address] [place] | unspecified COPD | | | | [place], [place] | [place] [address] | type (HCC); Long | | | | [address] | [phone] | term (current) use | | | | [phone] | | of anticoagulants; | | | [...] by your healthcare provider Date Last Reviewed: 12/26/201719994498-0163 [employer]. [address] [place] [address], [place] [address]. All righ ts reserved. This information is [...] | 05/04/ | Office | Gastroenterology | [facility], | | | 2019 | Visit | | ELSIE Newman [address] | | | | | | [address] | | | | | | [place] | | | | | | [address] | | | | | | | [...] 03/31/2019 | [facility] | | 9:12 AMMRN: [id number] #: [id number] of : | | | 2Admit Type: AmbulatoryAge: 89Room: Endo Room 2Gender: | | | MaleNote Status: FinalizedAttending MD: RAGHAVENDRA DE LA ROSA , | | | MDProcedure: Upper GI | | | endoscopyIndications: Generalized abdominal pain, | | | DiarrheaProviders: RAGHAVENDRA DE LA ROSA MD, Prisca | | | DIANA Braswell, Yaneth Oconnell, | | | Metal Off Bearer, Eliceo Patterson MD (Anesthesia Staff)Referring | | [...] AMScope | | | Out: 9:29:18 AM [facility], [address] | | | [place] [address] | | | - Resume previous diet. [...] |Scope Out: 9:29:18 AM | | | [facility], [address] [place], [place] | | | [address] | | + + ---+ + +---------+ [...] 03/31/2019 | [facility] | | 9:11 AMMRN: [id number] #: [id number] of : | | | 2Admit Type: AmbulatoryAge: 89Room: Endo Room 2Gender: | | | MaleNote Status: FinalizedAttending MD: RAGHAVENDRA DE LA ROSA , | | | MDProcedure: ColonoscopyIndications: | | | Generalized abdominal pain, Chronic diarrheaProviders: | | | RAGHAVENDRA ED LA ROSA MD, Prisca Braswell RN, Yaneth | | | Anish, Metal Off Bearer, Eliceo [place] | | | MD Leonardo (Anesthesia Staff)Referring MD: Curt Chanel | | | (Referring MD), Paty [place], | | | MANAGER EMPLOYMENT (Referring | | | MD)Medicines: Monitored Anesthesia [...] evaluated | | | using the BBPS ([place] Bowel Preparation Scale) with scores | | [...] | | 9:31:10 AMScope Out: 9:46:59 AM [facility] | | | [place], [address] [place] [address] | | | - Await pathology results. [...] |Scope Out: 9:46:59 AM | | | [facility], [address] [place] [address] | | | [address] | | + + ---+ + +---------+ [...] for specific diagnostic | | | abnormality. JVR:[facility]:C2NR GROSS DESCRIPTION: Three specimens | | | [...] component was performed by | | | [employer], [address] [place] [address] (Medical | | | Director: Hellen Cortez MD; CLIA# [id number]). Professional | | | interpretation was performed by [employer] [facility] [place] | | | [facility], [address] [place] [address] | | | [address] (Call Specialist: Rajeev Velzo M.D.). | | | Diagnostician: Rajeev Veloz MD Pathologist Electronically | | | Signed 04/01/2019 | | + + + + +---------+ + + | Performing | Address | City/State/[facility] Cent[facility]ode | Phone Number | | Organization | | | | + +---------+ + + | [facility] | | | | | [employer] | | | | + +---------+ + + documented in this encounter Visit Diagnoses + + | Diagnosis | + + | Chronic obstructive pulmonary disease, unspecified COPD type (HCC) | + + | [facility] (current) use of anticoagulants Long-term (current) use of anticoagulants | + + | Abdominal pain, unspecified abdominal location | + + | Diarrhea, unspecified type | + + documented in this encounter Admitting Diagnoses + + | Diagnosis | + + | Atrial fibrillation, unspecified type (HCC) | + + | Chronic obstructive pulmonary disease, unspecified COPD type (HCC) | + + | manager long term care (current) use of anticoagulants Long-term (current) use [...]
--- OUTSIDE RECORDS SUMMARY | ~2019-04-03 | XMS | Encounter Summary ---
Demographics + + + | Address | [address] [place] [address] RD | | | [place] [address] | + + + | Home Phone | | + + + | Preferred Language | Unknown | + + + | Marital Status | | + + + | Faith Affiliation | 1077 | + + + | Race | Unknown | + + + | Ethnic Group | Unknown | + + + Author + + + | Author | [facility] | | | and [place] | + + + | Organization | [facility] | | | and [place] | + + + | Address | Unknown | + + + | Phone | Unavailable | + + + Support + + + + + | Name | Relationship | Address | Phone | + + + + + | MatthewFrancoisea | ECON | [address] | | | | | [place] | | | | | [address] | | + + + + + Care Team Providers + +------+ + | Care Fruit Rancher Name | Role | Phone | + [...] + + | 04/01/ | Telephone | [facility] | [facility], | Appointment | | 2019 | | GASTROENTEROLOGY | ELSIE [address] | | | | | [address] [place] | [place] | | | | | [address] [place], [place] | [place], [place] | | | | | [address] | [address] | | | | | [phone] | | | +--------+ + + + [...] | 05/04/ | Office | Gastroenterology | [facility], | | | 2019 | Visit | | ELSIE Newman [address] | | | | | | [address] | | | | | | [place] | | | | | | [address] | | | | | | | | +--------+---------+ + + + documented as of this encounter Visit Diagnoses Not on filedocumented in this encounter"
--- OUTSIDE RECORDS SUMMARY | ~2019-04-03 | XMS | Encounter Summary ---
Demographics + + + | Address | [address] [place] [address] RD | | | [place] [address] | + + + | Home Phone | | + + + | Preferred Language | Unknown | + + + | Marital Status | | + + + | Yazidism Affiliation | 1077 | + + + | Race | Unknown | + + + | Ethnic Group | Unknown | + + + Author + + + | Author | [facility] | | | and [place] | + + + | Organization | [facility] | | | and [place] | + + + | Address | Unknown | + + + | Phone | Unavailable | + + + Support + + + + + | Name | Relationship | Address | Phone | + + + + + | Elaine Castro | ECON | [address] | | | | | [place] | | | | | [address] | | + + + + + Care Team Providers + +------+ + | Care Mobile Unit Assistant Name | Role | Phone | + [...] | | type (HCC) | | [place] [address] | | | | | Chronic | | Phone: | | | | | obstructive | | [phone] | | | | | pulmonary | | Fax: | | | | | disease, | | [phone] | | | | | unspecified | [...] | | | | | | | [place] | | | | | | | ESOPHAGOGAST | | | | | | | RODUODENOSCO | | | | | | | PY TRANSORAL | | | | | | | DIAGNOSTIC | | | | | | | [place] EGD | | | | | | | TRANSORAL | | | | | | | BIOPSY | | | | | | | SINGLE/MULTI | | | | | | | PLE [place] | | | | | | | COLONOSCOPY | | | | | | | FLX DX | | | | | | | W/COLLJ SPEC | | | | | | | WHEN PFRMD | | | | | | | [place] | | | | | | | COLONOSCOPY | | | | | | | W/BIOPSY | | | | | | | SINGLE/MULTI | | | | | | | PLE [place] | | | | | | | COLSC FLX | | | | | | | W/RMVL OF | | | | | | | TUMOR POLYP | | | | | | | LESION SNARE | | | | | | | TQ [place] | | | | | | | [...] + + | 03/31/ | Anesthesia | [facility] | Eliceo Patterson MD | | | 2019 | Event | MED CTR MP INTRA OP | [address] | | | | | [address] | [place] | | | | | [place] | [address] | | | | | [address] | [phone] | | | | | [phone] | | | +--------+ + + + [...] 03/31/19 1045 by | | eragin | ehav-tjp-khmmyh catheter system; | Angelita Barajas, RN | [...] | 05/04/ | Office | Gastroenterology | [facility], | | | 2019 | Visit | | ELSIE Newman [address] | | | | | | [address] | | | | | | [place] | | | | | | [address] | | | | | | | [...]
--- OUTSIDE RECORDS SUMMARY | ~2019-04-03 | XMS | Encounter Summary ---
Demographics + + + | Address | [address] [place] [address] RD | | | [place] [address] | + + + | Home Phone | | + + + | Preferred Language | Unknown | + + + | Marital Status | | + + + | Judaism Affiliation | 1077 | + + + | Race | Unknown | + + + | Ethnic Group | Unknown | + + + Author + + + | Author | [facility] | | | and [place] | + + + | Organization | [facility] | | | and [place] | + + + | Address | Unknown | + + + | Phone | Unavailable | + + + Support + + + + + | Name | Relationship | Address | Phone | + + + + + | Elaine Castro | ECON | [address] | | | | | [place] | | | | | [address] | | + + + + + Care Team Providers + +------+ + | Care Band Tier Name | Role | Phone | + +------+ + | Curt Chanel | PCP | | + +------+ + Reason for Visit + + + | Reason | Comments | + + + | Procedure | questions | + + + Encounter Details +--------+ + + + + | Date | Type | Department | Care Team | Description | +--------+ + + + + | 03/18/ | Telephone | [facility] | Raghavendra Bhatti | Procedure | | 2019 | | GASTROENTEROLOGY | MD Eron [address] | (questions) | | | | [address] [place] | [address] [place] | | | | | [address] [place], [place] | [place] [address] | | | | | [address] | [phone] | | | | | [phone] | | | +--------+ + + + [...] | 05/04/ | Office | Gastroenterology | [facility], | | | 2019 | Visit | | ELSIE Newman [address] | | | | | | [address] | | | | | | [place] | | | | | | [address] | | | | | | | | +--------+---------+ + + + documented as of this encounter Visit Diagnoses Not on filedocumented in this encounter"
--- OUTSIDE RECORDS SUMMARY | ~2019-04-03 | XMS | Encounter Summary ---
Demographics + + + | Address | [address] [place] [address] RD | | | [place] [address] | + + + | Home Phone | | + + + | Preferred Language | Unknown | + + + | Marital Status | | + + + | Protestant Affiliation | 1077 | + + + [...] + | Elaine Castro | ECON | [address] | | | | | [place] | | | | | [address] | | + + + + + Care Team Providers + +------+ + | Care Baler Operator Name | Role | Phone | [...] + | 03/18/ | Telephone | [facility] | Raghavendra Bhatti | Procedure | | 2019 | | GASTROENTEROLOGY | MD [address] | (questions) | | | | [address] [place] | [address] [place] | | | | | [address] [place], [place] | [place] [address] | | | | | [address] | [phone] | | | | | [phone] | | | +--------+ + + + [...] | 05/04/ | Office | Gastroenterology | [facility], | | | 2019 | Visit | | ELSIE Newman [address] | | | | | | [address] | | | | | | [place] | | | | | | [address] | | | | | | | | +--------+---------+ + + + documented as of this encounter Visit Diagnoses Not on filedocumented in this encounter"
--- OUTSIDE RECORDS SUMMARY | ~2019-04-03 | XMS | Encounter Summary ---
Demographics + + + | Address | [address] [place] [address] RD | | | [place] [address] | + + + | Home Phone | | + + + | Preferred Language | Unknown | + + + | Marital Status | | + + + | Judaism Affiliation | 1077 | + + + | Race | Unknown | + + + | Ethnic Group | Unknown | + + + Author + + + | Author | [facility] | | | and [place] | + + + | Organization | [facility] | | | and [place] | + + + | Address | Unknown | + + + | Phone | Unavailable | + + + Support + + + + + | Name | Relationship | Address | Phone | + + + + + | Elaine Castro | ECON | [address] | | | | | [place] | | | | | [address] | | + + + + + Care Team Providers + +------+ + | Care Academy Director Name | Role | Phone | + [...] | | type (HCC) | | [place] [address] | | | | | Chronic | | Phone: | | | | | obstructive | | [phone] | | | | | pulmonary | | Fax: | | | | | disease, | | [phone] | | | | | unspecified | [...] | | | | | | | [place] | | | | | | | ESOPHAGOGAST | | | | | | | RODUODENOSCO | | | | | | | PY TRANSORAL | | | | | | | DIAGNOSTIC | | | | | | | [place] EGD | | | | | | | TRANSORAL | | | | | | | BIOPSY | | | | | | | SINGLE/MULTI | | | | | | | PLE [place] | | | | | | | COLONOSCOPY | | | | | | | FLX DX | | | | | | | W/COLLJ SPEC | | | | | | | WHEN PFRMD | | | | | | | [place] | | | | | | | COLONOSCOPY | | | | | | | W/BIOPSY | | | | | | | SINGLE/MULTI | | | | | | | PLE [place] | | | | | | | COLSC FLX | | | | | | | W/RMVL OF | | | | | | | TUMOR POLYP | | | | | | | LESION SNARE | | | | | | | TQ [place] | | | | | | | [...] Description | +--------+---------+ + + + | 03/31/ | Surgery | [facility] | | EGD | | 2019 | | MED CTR MP INTRA OP | | | | | | [address] | | | | | | [place] | | | | | | [address] | | | | | | [phone] | | | +--------+---------+ + + + Social History [...] by your healthcare provider Date Last Reviewed: 12/26/201719994711-7242 [employer]. [address] [place] [address], [place] [address]. All righ ts reserved. This information is [...] needed for | 2 | 0 | /04/16 | | | (ZOFRAN) 4 mg tablet [...] | 05/04/ | Office | Gastroenterology | [facility], | | | 2019 | Visit | | ELSIE Newman [address] | | | | | | [address] | | | | | | [place] | | | | | | [address] | | | | | | | [...] 03/31/2019 | PROVATION | | 9:12 AMMRN: [id number] #: [id number] of : | | | [address] Type: AmbulatoryAge: 89Room: Endo Room 2Gender: | | | MaleNote Status: FinalizedAttending MD: RAGHAVENDRA DE LA ROSA , | | | MDProcedure: Upper GI | | | endoscopyIndications: Generalized abdominal pain, | | | DiarrheaProviders: RAGHAVENDRA DE LA ROSA MD, [facility] | | | DIANA [place], Yaneth Oconnell, | | | Currency Machine Operator, Eliceo Patterson MD (Anesthesia Staff)Referring | | [...] AMScope | | | Out: 9:29:18 AM [facility], [address] | | | [place] [address] | | | - Resume previous diet. [...] |Scope Out: 9:29:18 AM | | | [facility], [address] [place], [place] | | | [address] | | + + ---+ + +---------+ + + | Performing | Address | City/State/[facility] | Phone Number | | Organization | [...] 03/31/2019 | [place] | | 9:11 AMMRN: [id number] #: [id number] of : | | | 1932dmit Type: AmbulatoryAge: 89Room: Endo Room 2Gender: | | | MaleNote Status: FinalizedAttending MD: RAGHAVENDRA DE LA ROSA , | | | MDProcedure: ColonoscopyIndications: | | | Generalized abdominal pain, Chronic diarrheaProviders: | | | RAGHAVENDRA DE LA ROSA MD, Prisca Braswell RN, Yaneth | | | Anish, Currency Machine Operator, Eliceo Salazar | | | MD Leonardo (Anesthesia Staff)Referring MD: Curt Chanel | | | (Referring MD), Paty Newton, | | | ELSIE (Referring | | [...] evaluated | | | using the BBPS ([place] Bowel Preparation Scale) with scores | | [...] AM [facility] | | | Center, [address] [place] [address] | | | - Await pathology results. [...] |Scope Out: 9:46:59 AM | | | [facility], [address] [place] [address] | | | [address] | | + + ---+ + +---------+ [...] | pulmonary disease, unspecified COPD type), Z79.01 (wet chemistry analyst [current] | | | use of anticoagulants), [...] for specific diagnostic | | | abnormality. JVR:[facility]:C2NR GROSS DESCRIPTION: Three specimens | | | [...] component was performed by | | | [email or web address], [address] [place] [address] (Medical | | | Director: Hellen Cortez MD; CLIA# [id number]). Professional | | | [email or web address] | | | [address] | | | [address] (Hollow Tile Partition Erector: Rajeev Veloz M.D.). 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
--- OUTSIDE RECORDS SUMMARY | ~2019-04-03 | XMS | Encounter Summary ---
Demographics + + + | Address | [address] [place] [address] RD | | | [place] [address] | + + + | Home Phone | | + + + | Preferred Language | Unknown | + + + | Marital Status | | + + + | Adventist Affiliation | 1077 | + + + | Race | Unknown | + + + | Ethnic Group | Unknown | + + + Author + + + | Author | [facility] | | | and [place] | + + + | Organization | [facility] | | | and [place] | + + + | Address | Unknown | + + + | Phone | Unavailable | + + + Support + + + + + | Name | Relationship | Address | Phone | + + + + + | Elaine Castro | ECON | [address] | | | | | [place] | | | | | [address] | | + + + + + Care Team Providers + +------+ + | Care Tool Checker Name | Role | Phone | + [...] + | 03/18/ | Telephone | [facility] | Raghavendra Bhatti | Procedure | | 2019 | | GASTROENTEROLOGY | MD [address] | (questions) | | | | [address] [place] | [address] [place] | | | | | [address] [place], [place] | [place] [address] | | | | | [address] | [phone] | | | | | [phone] | | | +--------+ + + + [...] 05/04/ | Office | Gastroenterology | [facility], | | | 2019 | Visit | | ELSIE Newman [address] | | | | | | [address] | | | | | | [place] | | | | | | [address] | | | | | | | | +--------+---------+ + + + documented as of this encounter Visit Diagnoses Not on filedocumented in this encounter"
--- OUTSIDE RECORDS SUMMARY | ~2019-04-03 | XMS | Encounter Summary ---
Demographics + + + | Address | [address] [place] [address] RD | | | [place] [address] | + + + | Home Phone | | + + + | Preferred Language | Unknown | + + + | Marital Status | | + + + | Mormon Affiliation | 1077 | + + + | Race | Unknown | + + + | Ethnic Group | Unknown | + + + Author + + + | Author | [facility] | | | and [place] | + + + | Organization | [facility] | | | and [place] | + + + | Address | Unknown | + + + | Phone | Unavailable | + + + Support + + + + + | Name | Relationship | Address | Phone | + + + + + | Elaine Castro | ELA | [address] | | | | | [place] | | | | | [address] | | + + + + + Care Team Providers + +------+ + | Care Labourers Name | Role | Phone | + +------+ + | Curt Chanel | PCP | | + +------+ + Encounter Details +--------+ + + + + | Date | Type | Department | Care Team | Description | +--------+ + + + + | 02/13/ | Abstract | [facility] | Provider, | | | 2018 | | GASTROENTEROLOGY | MD [address] | | | | | [address] [facility] | Daniel Yang | | | | | [address] [place] | [place] [address] | | | | | [address] | | | | | | [phone] | | | +--------+ + + + [...] [facility], | | | 2019 | Visit | | ELSIE Newman [address] | | | | | | [address] | | | | | | [place] | | | | | | [address] | | | | | | | [...] - 1.03 | EXTERNAL | | | [place], | | | LAB | | | [...]
--- OUTSIDE RECORDS SUMMARY | ~2019-04-03 | XMS | Encounter Summary ---
Demographics + + + | Address | [address] [place] [address] RD | | | [place] [address] | + + + | Home Phone | | + + + | Preferred Language | Unknown | + + + | Marital Status | | + + + | Hindu Affiliation | 1077 | + + + | Race | Unknown | + + + | Ethnic Group | Unknown | + + + Author + + + | Author | [facility] | | | and [place] | + + + | Organization | [facility] | | | and [place] | + + + | Address | Unknown | + + + | Phone | Unavailable | + + + Support + + + + + | Name | Relationship | Address | Phone | + + + + + | Elaine Castro | ELA | [address] | | | | | [place] | | | | | [address] | | + + + + + Care Team Providers + +------+ + | Care Component Assembler Supervisor Name | Role | Phone | + +------+ + | Curt Chanel | PCP | | + +------+ + Encounter Details +--------+ + + + + | Date | Type | Department | Care Team | Description | +--------+ + + + + | 02/13/ | Abstract | [facility] | Provider, | | | 2018 | | GASTROENTEROLOGY | MD [address] | | | | | [address] [facility] | Daniel Yang | | | | | [address] [place] | [place] [address] | | | | | [address] | | | | | | [phone] | | | +--------+ + + + [...] | 05/04/ | Office | Gastroenterology | [facility], | | | 2019 | Visit | | ELSIE Newman [address] | | | | | | [address] | | | | | | [place] | | | | | | [address] | | | | | | | [...] - 1.03 | EXTERNAL | | | [place], | | | LAB | | | [...]
--- OUTSIDE RECORDS SUMMARY | ~2019-04-03 | XMS | Encounter Summary ---
Demographics + + + | Address | [address] [place] [address] RD | | | [place] [address] | + + + | Home Phone | | + + + | Preferred Language | Unknown | + + + | Marital Status | | + + + | Uatsdin Affiliation | 1077 | + + + | Race | Unknown | + + + | Ethnic Group | Unknown | + + + Author + + + | Author | [facility] | | | and [place] | + + + | Organization | [facility] | | | and [place] | + + + | Address | Unknown | + + + | Phone | Unavailable | + + + Support + + + + + | Name | Relationship | Address | Phone | + + + + + | Elaine Castro | ECON | [address] | | | | | [place] | | | | | [address] | | + + + + + Care Team Providers + +------+ + | Care Director Of Clinical Education Name | Role | Phone | + [...] | | type (HCC) | | [place] [address] | | | | | Chronic | | Phone: | | | | | obstructive | | [phone] | | | | | pulmonary | | Fax: | | | | | disease, | | [phone] | | | | | unspecified | [...] | | | | | | | [place] | | | | | | | ESOPHAGOGAST | | | | | | | RODUODENOSCO | | | | | | | PY TRANSORAL | | | | | | | DIAGNOSTIC | | | | | | | [place] EGD | | | | | | | TRANSORAL | | | | | | | BIOPSY | | | | | | | SINGLE/MULTI | | | | | | | PLE [place] | | | | | | | COLONOSCOPY | | | | | | | FLX DX | | | | | | | W/COLLJ SPEC | | | | | | | WHEN PFRMD | | | | | | | [place] | | | | | | | COLONOSCOPY | | | | | | | W/BIOPSY | | | | | | | SINGLE/MULTI | | | | | | | PLE [place] | | | | | | | COLSC FLX | | | | | | | W/RMVL OF | | | | | | | TUMOR POLYP | | | | | | | LESION SNARE | | | | | | | TQ [place] | | | | | | | [...] + + | 03/31/ | Hospital | [facility] | Raghavendra De La Rosa | Chronic obstructive | | 2019 | Encounter | MED CTR MP INTRA OP | MD [address]ron [address] | pulmonary disease, | | | | [address] [place] | unspecified COPD | | | | [place], [place] | [place] [address] | type (HCC); Long | | | | [address] | [phone] | term (current) use | | | | [phone] | | of anticoagulants; | | | [...] by your healthcare provider Date Last Reviewed: 12/26/201719992079-0431 [employer]. [address] [place] [address], [place] [address]. All righ ts reserved. This information is [...] | 05/04/ | Office | Gastroenterology | [facility], | | | 2019 | Visit | | ELSIE Newman [address] | | | | | | [address] | | | | | | [place] | | | | | | [address] | | | | | | | [...] 03/31/2019 | PROVATION | | 9:12 AMMRN: [id number] #: [id number] of : | | | 2Admit Type: AmbulatoryAge: 89Room: Endo Room 2Gender: | | | MaleNote Status: FinalizedAttending MD: RAGHAVENDRA DE LA ROSA , | | | MDProcedure: Upper GI | | | endoscopyIndications: Generalized abdominal pain, | | | DiarrheaProviders: RAGHAVENDRA DE LA ROSA MD, Prisca | | | DIANA Braswell, Yaneth Oconnell, | | | Lay Out Former, Eliceo Patterson MD (Anesthesia Staff)Referring | | [...] AMScope | | | Out: 9:29:18 AM [facility], [address] | | | [place] [address] | | | - Resume previous diet. [...] |Scope Out: 9:29:18 AM | | | [facility], [address] [place], [place] | | | [address] | | + + ---+ + +---------+ [...] 03/31/2019 | PROVATION | | 9:11 AMMRN: [id number] #: [id number] of : | | | 2Admit Type: AmbulatoryAge: 89Room: Endo Room 2Gender: | | | MaleNote Status: FinalizedAttending MD: RAGHAVENDRA DE LA ROSA , | | | MDProcedure: ColonoscopyIndications: | | | Generalized abdominal pain, Chronic diarrheaProviders: | | | RAGHAVENDRA DE LA ROSA MD, Prisca Braswell RN, Yaneth | | | Anish, Lay Out Former, Eliceo [place] | | | MD Leonardo (Anesthesia Staff)Referring MD: Curt Chanel | | | (Referring MD), Paty Newton, | | | GRAVEL WEIGHER (Referring | | | MD)Medicines: Monitored Anesthesia [...] evaluated | | | using the BBPS ([place] Bowel Preparation Scale) with scores | | [...] | | 9:31:10 AMScope Out: 9:46:59 AM [facility] | | | [place], [address] [place] [address] | | | - Await pathology results. [...] |Scope Out: 9:46:59 AM | | | [facility], [address] [place] [address] | | | [address] | | + + ---+ + +---------+ [...] for specific diagnostic | | | abnormality. JVR:[facility]:C2NR GROSS DESCRIPTION: Three specimens | | [...] component was performed by | | | [facility], [address] [place] [address] (Medical | | | Director: Hellen Cortez MD; CLIA# [id number]). Professional | | | interpretation was performed by [facility] [place] | | | [facility], [address] [place] [address] | | | [address] (Structural Engineer: Rajeev Veloz M.D.). | | | Diagnostician: Rajeev Veloz MD Pathologist Electronically | | | Signed 04/01/2019 | | + + + + +---------+ + + | Performing | Address | City/State/[facility] Centercode | Phone Number | | Organization | | | | + +---------+ + + | [place] [facility] | | | | | [employer] | | | | + +---------+ + + documented in this encounter Visit Diagnoses + + | Diagnosis | + + | Chronic obstructive pulmonary disease, unspecified COPD type (HCC) | + + | residential (current) use of anticoagulants Long-term (current) use of anticoagulants | + + | Abdominal pain, unspecified abdominal location | + + | Diarrhea, unspecified type | + + documented in this encounter Admitting Diagnoses + + | Diagnosis | + + | Atrial fibrillation, unspecified type (HCC) | + + | Chronic obstructive pulmonary disease, unspecified COPD type (HCC) | + + | 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
--- OUTSIDE RECORDS SUMMARY | ~2019-04-03 | XMS | Encounter Summary ---
Demographics + + + | Address | [address] [place] [address] RD | | | [place] [address] | + + + | Home Phone | | + + + | Preferred Language | Unknown | + + + | Marital Status | | + + + | Samaritan Affiliation | 1077 | + + + | Race | Unknown | + + + | Ethnic Group | Unknown | + + + Author + + + | Author | [facility] | | | and [place] | + + + | Organization | [facility] | | | and [place] | + + + | Address | Unknown | + + + | Phone | Unavailable | + + + Support + + + + + | Name | Relationship | Address | Phone | + + + + + | Elaine Castro | ECON | [address] | | | | | [place] | | | | | [address] | | + + + + + Care Team Providers + +------+ + | Care Bog Cutter Name | Role | Phone | [...] | | type (HCC) | | [place] [address] | | | | | Chronic | | Phone: | | | | | obstructive | | [phone] | | | | | pulmonary | | Fax: | | | | | disease, | | [phone] | | | | | unspecified | [...] | | | | | [address] | | | | | | [place] | | | | | | [address] | | | | | | [phone] | | | +--------+---------+ + + + [...] by your healthcare provider Date Last Reviewed: 12/26/201719999030-9562 [employer]. [address] [place] [address], [place] [address]. All righ ts reserved. This information is [...] | 05/04/ | Office | Gastroenterology | [facility], | | | 2019 | Visit | | ELSIE Newman [address] | | | | | | [address] | | | | | | [place] | | | | | | [address] | | | | | | | [...] 03/31/2019 | PROVATION | | 9:12 AMMRN: [id number] #: [id number] of : | | | [address]dmit Type: AmbulatoryAge: 89Room: Endo Room 2Gender: | | | MaleNote Status: FinalizedAttending MD: RAGHAVENDRA DE LA ROSA , | | | MDProcedure: Upper GI | | | endoscopyIndications: Generalized abdominal pain, | | | DiarrheaProviders: RAGHAVENDRA DE LA ROSA MD, [facility] | | | DIANA Braswell, Yaneth Oconnell, | | | Manager Paper, Eliceo Patterson MD (Anesthesia Staff)Referring | | [...] AMScope | | | Out: 9:29:18 AM [facility], [address] | | | [place] [address] | | | - Resume previous diet. [...] |Scope Out: 9:29:18 AM | | | [facility], [address] [place], [place] | | | [address] | | + + ---+ + +---------+ + + | Performing | Address | City/State/[facility] Centercode | Phone Number | | [...] 03/31/2019 | PROVATION | | 9:11 AMMRN: [id number] #: [id number] of : | | | [address]dmit Type: AmbulatoryAge: 89Room: Endo Room 2Gender: | | | MaleNote Status: FinalizedAttending MD: RAGHAVENDRA DE LA ROSA , | | | MDProcedure: ColonoscopyIndications: | | | Generalized abdominal pain, Chronic diarrheaProviders: | | | RAGHAVENDRA DE LA ROSA MD, Prisca Braswell RN, Yaneth | | | Anish, Manager Paper, Eliceo Salazar | | | MD Leonardo [...] evaluated | | | using the BBPS ([place] Bowel Preparation Scale) with scores | | [...] | | 9:31:10 AMScope Out: 9:46:59 AM [facility] | | | Center, [address] [place] [address] | | | - Await pathology results. [...] |Scope Out: 9:46:59 AM | | | [facility], [address] [place] [address] | | | [address] | | + + ---+ + +---------+ [...] | pulmonary disease, unspecified COPD type), Z79.01 (marine oil terminal superintendent [current] | | | use of anticoagulants), [...] specific diagnostic | | | abnormality. JVR:[facility]:C2NR GROSS DESCRIPTION: Three specimens | | | [...] component was performed by | | | [facility], [address] [place] [address] (Medical | | | Director: Hellen Cortez MD; CLIA# [id number]). Professional | | | interpretation was performed by [facility] | | | [address] | | | [address] (Floor Trader: Rajeev Veloz M.D.). | | | Diagnostician: [...] COPD type (HCC) | + + | moth exterminator (current) use of anticoagulants Long-term (current) use of anticoagulants | + + | Abdominal pain, unspecified abdominal location | + + documented in this encounter Admitting Diagnoses + + | Diagnosis | + + | Atrial fibrillation, unspecified type (HCC) | + + | Chronic obstructive pulmonary disease, unspecified COPD type (HCC) | + + | moth exterminator (current) use of anticoagulants Long-term (current) use [...]
--- OUTSIDE RECORDS SUMMARY | ~2019-04-03 | XMS | Encounter Summary ---
Demographics + + + | Address | [address] [place] [address] RD | | | [place] [address] | + + + | Home Phone | | + + + | Preferred Language | Unknown | + + + | Marital Status | | + + + | Protestant Affiliation | 1077 | + + + | Race | Unknown | + + + | Ethnic Group | Unknown | + + + Author + + + | Author | [facility] | | | and [place] | + + + | Organization | [facility] | | | and [place] | + + + | Address | Unknown | + + + | Phone | Unavailable | + + + Support + + + + + | Name | Relationship | Address | Phone | + + + + + | Elaine Castro | ECON | [address] | | | | | [place] | | | | | [address] | | + + + + + Care Team Providers + +------+ + | Care Personal Development Coach Name | Role | Phone | + [...] + | 03/18/ | Telephone | [facility] | Raghavendra Bhatti | Procedure | | 2019 | | GASTROENTEROLOGY | MD Eron [address] | (questions) | | | | [address] [place] | [address] [place] | | | | | [address] [place], [place] | [place] [address] | | | | | [address] | [phone] | | | | | [phone] | | | +--------+ + + + [...] | 05/04/ | Office | Gastroenterology | [facility], | | | 2019 | Visit | | ELSIE Newman [address] | | | | | | [address] | | | | | | [place] | | | | | | [address] | | | | | | | | +--------+---------+ + + + documented as of this encounter Visit Diagnoses Not on filedocumented in this encounter"
--- OUTSIDE RECORDS SUMMARY | ~2019-04-03 | XMS | Encounter Summary ---
Demographics + + + | Address | [address] [place] [address] RD | | | [place] [address] | + + + | Home Phone | | + + + | Preferred Language | Unknown | + + + | Marital Status | | + + + | Islam Affiliation | 1077 | + + + | Race | Unknown | + + + | Ethnic Group | Unknown | + + + Author + + + | Author | [facility] | | | and [place] | + + + | Organization | [facility] | | | and [place] | + + + | Address | Unknown | + + + | Phone | Unavailable | + + + Support + + + + + | Name | Relationship | Address | Phone | + + + + + | lEaine Castro | ECON | [address] | | | | | [place] | | | | | [address] | | + + + + + Care Team Providers + +------+ + | Care Ground Wood Supervisor Name | Role | Phone | [...] | | type (HCC) | | [place] [address] | | | | | Chronic | | Phone: | | | | | obstructive | | [phone] | | | | | pulmonary | | Fax: | | | | | disease, | | [phone] | | | | | unspecified | [...] | | | | | | | PA | | | | | | | ESOPHAGOGAST | | | | | | | RODUODENOSCO | | | | | | | PY TRANSORAL | | | | | | | DIAGNOSTIC | | | | | | | PA EGD | | | | | | | TRANSORAL | | | | | | | BIOPSY | | | | | | | SINGLE/MULTI | | | | | | | PLE PA | | | | | | | COLONOSCOPY | | | | | | | FLX DX | | | | | | | W/COLLJ SPEC | | | | | | | WHEN PFRMD | | | | | | | PA | | | | | | | COLONOSCOPY | | | | | | | W/BIOPSY | | | | | | | SINGLE/MULTI | | | | | | | PLE PA | | | | | | | COLSC FLX | | | | | | | W/RMVL OF | | | | | | | TUMOR POLYP | | | | | | | LESION SNARE | | | | | | | TQ PA | | | | | | | [...] + + | 03/31/ | Anesthesia | [facility] | Eliceo Patterson MD | | | 2019 | Event | [facility] | [address] | | | | | [address] | [place] | | | | | [place] | [address] | | | | | [address] | [phone] | | | | | [phone] | | | +--------+ + + + [...] 03/31/19 1045 by | | eragin | [id number] catheter system; | Angelita Barajas, RN | [...] | 05/04/ | Office | Gastroenterology | [facility], | | | 2019 | Visit | | ELSIE Newman [address] | | | | | | [address] | | | | | | [place] | | | | | | [address] | | | | | | | [...]
--- OUTSIDE RECORDS SUMMARY | ~2019-04-03 | XMS | Clinical Summary ---
Demographics + + + | Address | [address] [place] [address] RD | | | [place] [address] | + + + | Home Phone | | + + + | Preferred Language | Unknown | + + + | Marital Status | | + + + | Yarsanism Affiliation | 1077 | + + + [...] + | Elaine Castro | ECON | [address] | | | | | [place] | | | | | [address] | | + + + + + Care Team Providers + +------+ + | Care Sorting And Folding Supervisor Name | Role | Phone | [...] | 03/16/2019 | + + + | snf (current) use of anticoagulants - apixaban (ELIQUIS) | 03/16/2019 | + + + + + | Overview: apixaban (ELIQUIS) | + + + + + | Abdominal pain, unspecified abdominal location | 03/16/2019 | + + + + + | Overview: Added automatically from request for surgery | | [id number] | + + + + + | Atrial fibrillation, persistent | 03/02/2019 | + + + | Hypertension | 03/02/2019 | + + + | 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 | 03/02/2019 [...] + | 05/04/ | Office | | [facility], | | | 2019 | Visit | | ELSIE Newman [address] | | | | | | [address] | | | | | | [place] | | | | | | [address] | | | | | | | [...] 03/31/2019 | PROVATION | | 9:12 AMMRN: [id number] #: [id number] of : | | | 1932dmit Type: AmbulatoryAge: 89Room: Endo Room 2Gender: | | | MaleNote Status: FinalizedAttending MD: RAGHAVENDRA DE LA ROSA , | | | MDProcedure: Upper GI | | | endoscopyIndications: Generalized abdominal pain, | | | DiarrheaProviders: RAGHAVENDRA DE LA ROSA MD, Prisca | | | DIANA Braswell, Yaneth Oconnell, | | | Business Analyst Intern, Eliceo Patterson MD (Anesthesia Staff)Referring | | [...] AMScope | | | Out: 9:29:18 AM [facility], [address] | | | [place] [address] | | | - Resume previous diet. [...] |Scope Out: 9:29:18 AM | | | [facility], [address] , [place], [place] | | | [address] | | + + ---+ + +---------+ [...] 03/31/2019 | PROVATION | | 9:11 AMMRN: [id number] #: [id number] of : | | | 1932dmit Type: AmbulatoryAge: 89Room: Endo Room 2Gender: | | | MaleNote Status: FinalizedAttending MD: RAGHAVENDRA DE LA ROSA , | | | MDProcedure: ColonoscopyIndications: | | | Generalized abdominal pain, Chronic diarrheaProviders: | | | RAGHAVENDRA DE LA ROSA MD, Prisca Braswell RN, Yaneth | | | Anish, Business Analyst Intern, Eliceo Salazar | | | MD Leonardo (Anesthesia Staff)Referring MD: Curt Chanel | | | (Referring MD), [facility], | | | ELSIE (Referring | | [...] evaluated | | | using the BBPS ([place] Bowel Preparation Scale) with scores | | [...] | | 9:31:10 AMScope Out: 9:46:59 AM [facility] | | | [place], [address] [place] [address] | | | - Await pathology results. [...] |Scope Out: 9:46:59 AM | | | [facility], [address] [place] [address] | | | [address] | | + + ---+ + +---------+ [...] pulmonary disease, unspecified COPD type), Z79.01 (terminal superintendent [current] | | | use of [...] for specific diagnostic | | | abnormality. JVR:[facility]:C2NR GROSS DESCRIPTION: Three specimens | | | [...] component was performed by | | | [facility], [address] [place] [address] (Medical | | | Director: Hellen Cortez MD; IA# [id number]). Professional | | | interpretation was performed by [facility] [place] | | | [address] | | | [address] (Decal Decorator: Rajeev Veloz M.D.). | | | Diagnostician: [...] +--------+-------+---------+--------+ | [employer]MIN | VETERA | [id number] | | | | Indemn | | | NS | | 019-Pr | | | ity | | | CHOICE | | esent | | | | + +--------+ +--------+-------+---------+--------+ | [employer]MIN | VET[place]A | [id number] | | | | Indemn | | [...] Person | Self | [birth year] | [address] | | | al/Fam | | 1930 | [phone] | [place] | | | [place] | | | 6 (Home) | [address] | + +--------+ +--------+ + + Advance Directives Patient has advance care planning documents on file. For more information, please contact:[facility] [employer] [facility] [address]
--- OUTSIDE RECORDS SUMMARY | ~2019-04-03 | XMS | Encounter Summary ---
Demographics + + + | Address | [address] [place] [address] RD | | | [place] [address] | + + + | Home Phone | | + + + | Preferred Language | Unknown | + + + | Marital Status | | + + + | Christianity Affiliation | 1077 | + + + | Race | Unknown | + + + | Ethnic Group | Unknown | + + + Author + + + | Author | [facility] | | | and [place] | + + + | Organization | [facility] | | | and [place] | + + + | Address | Unknown | + + + | Phone | Unavailable | + + + Support + + + + + | Name | Relationship | Address | Phone | + + + + + | Elaine Castro | ELA | [address] | | | | | [place] | | | | | [address] | | + + + + + Care Team Providers + +------+ + | Care Research Environmental Scientist Name | Role | Phone | + +------+ + | Curt Chanel | PCP | | + +------+ + Encounter Details +--------+ + + + + | Date | Type | Department | Care Team | Description | +--------+ + + + + | 02/13/ | Abstract | [facility] | Provider, | | | 2018 | | GASTROENTEROLOGY | MD [address] | | | | | [address] [facility] | Daniel Yang | | | | | [address] [place] | [place] [address] | | | | | [address] | | | | | | [phone] | | | +--------+ + + + [...] | 05/04/ | Office | Gastroenterology | [facility], | | | 2019 | Visit | | ELSIE Newman [address] | | | | | | [address] | | | | | | [place] | | | | | | [address] | | | | | | | [...] - 1.03 | EXTERNAL | | | [place], | | | LAB | | | [...]
--- OUTSIDE RECORDS SUMMARY | ~2019-04-03 | XMS | Encounter Summary ---
Demographics + + + | Address | [address] [place] [address] RD | | | [place] [address] | + + + | Home Phone | | + + + | Preferred Language | Unknown | + + + | Marital Status | | + + + | Zoroastrianism Affiliation | 1077 | + + + | Race | Unknown | + + + | Ethnic Group | Unknown | + + + Author + + + | Author | [facility] | | | and [place] | + + + | Organization | [facility] | | | and [place] | + + + | Address | Unknown | + + + | Phone | Unavailable | + + + Support + + + + + | Name | Relationship | Address | Phone | + + + + + | Elaine Castro | ECON | [address] | | | | | [place] | | | | | [address] | | + + + + + Care Team Providers + +------+ + | Care Production Line Operator Name | Role | Phone | [...] | | type (HCC) | | [place] [address] | | | | | Chronic | | Phone: | | | | | obstructive | | [phone] | | | | | pulmonary | | Fax: | | | | | disease, | | [phone] | | | | | unspecified | [...] | | | | | | | LA | | | | | | | ESOPHAGOGAST | | | | | | | RODUODENOSCO | | | | | | | PY TRANSORAL | | | | | | | DIAGNOSTIC | | | | | | | LA EGD | | | | | | | TRANSORAL | | | | | | | BIOPSY | | | | | | | SINGLE/MULTI | | | | | | | PLE LA | | | | | | | COLONOSCOPY | | | | | | | FLX DX | | | | | | | W/COLLJ SPEC | | | | | | | WHEN PFRMD | | | | | | | LA | | | | | | | COLONOSCOPY | | | | | | | W/BIOPSY | | | | | | | SINGLE/MULTI | | | | | | | PLE LA | | | | | | | COLSC FLX | | | | | | | W/RMVL OF | | | | | | | TUMOR POLYP | | | | | | | LESION SNARE | | | | | | | TQ LA | | | | | | | [...] | | | | | [address] | | | | | | [place] | | | | | | [address] | | | | | | [phone] | | | +--------+---------+ + + + [...] by your healthcare provider Date Last Reviewed: 12/26/201719998072-9260 [employer]. [address] [place] [address], [place] [address]. All righ ts reserved. This information is [...] | 05/04/ | Office | Gastroenterology | [facility], | | | 2019 | Visit | | ELSIE Newman [address] | | | | | | [address] | | | | | | [place] | | | | | | [address] | | | | | | | [...] 03/31/2019 | PROVATION | | 9:12 AMMRN: [id number] #: [id number] of : | | | 1932dmit Type: AmbulatoryAge: 89Room: Endo Room 2Gender: | | | MaleNote Status: FinalizedAttending MD: RAGHAVENDRA DE LA ROSA , | | | MDProcedure: Upper GI | | | endoscopyIndications: Generalized abdominal pain, | | | DiarrheaProviders: RAGHAVENDRA DE LA ROSA MD, [facility] | | | DIANA Braswell, Yaneth Oconnell, | | | Capacity Management Specialist, Eliceo Patterson MD (Anesthesia Staff)Referring | | [...] AMScope | | | Out: 9:29:18 AM [facility], [address] | | | [place] [address] | | | - Resume previous diet. [...] |Scope Out: 9:29:18 AM | | | [facility], [address] [place], [place] | | | [address] | | + + ---+ + +---------+ + + | Performing | Address | City/State/[facility] | Phone Number | | Organization | [...] 03/31/2019 | PROVATION | | 9:11 AMMRN: [id number] #: [id number] of : | | | 1932dmit Type: AmbulatoryAge: 89Room: Endo Room 2Gender: | | | MaleNote Status: FinalizedAttending MD: RAGHAVENDRA DE LA ROSA , | | | MDProcedure: ColonoscopyIndications: | | | Generalized abdominal pain, Chronic diarrheaProviders: | | | RAGHAVENDRA DE LA ROSA MD, Prisca Braswell RN, Yaneth | | | Anish, Capacity Management Specialist, Eliceo Salazar | | | MD Leonardo [...] evaluated | | | using the BBPS ([place] Bowel Preparation Scale) with scores | | [...] | | 9:31:10 AMScope Out: 9:46:59 AM [facility] | | | Center, [address] [place] [address] | | | - Await pathology results. [...] |Scope Out: 9:46:59 AM | | | [facility], [address] [place] [address] | | | [address] | | + + ---+ + +---------+ [...] | pulmonary disease, unspecified COPD type), Z79.01 (rodent exterminator [current] | | | use of anticoagulants), [...] for specific diagnostic | | | abnormality. JVR:[facility]:C2NR GROSS DESCRIPTION: Three specimens | [...] component was performed by | | | [email or web address], [address] [place] [address] (Medical | | | Director: Hellen Cortez MD; CLIA# [id number]). Professional | | | interpretation was performed by [email or web address] | | | [address] | | | [address] (Analytical Chemist: Rajeev Veloz M.D.). | | | Diagnostician: [...] COPD type (HCC) | + + | lobsterman (current) use of anticoagulants Long-term (current) use of anticoagulants | + + | Abdominal pain, unspecified abdominal location | + + documented in this encounter Admitting Diagnoses + + | Diagnosis | + + | Atrial fibrillation, unspecified type (HCC) | + + | Chronic obstructive pulmonary disease, unspecified COPD type (HCC) | + + | lobsterman (current) use of anticoagulants Long-term (current) use [...]
--- OUTSIDE RECORDS SUMMARY | ~2019-04-03 | XMS | Clinical Summary ---
Demographics + + + | Address | [address] [place] [address] Rd | | | [place] [address] | + + + | Home Phone | | + + + | Preferred Language | Unknown | + + + | Marital Status | | + + + | Alevism Affiliation | 1077 | + + + | Race | Unknown | + + + | Ethnic Group | Unknown | + + + Author + + + | Author | [facility] | + + + | Organization | [facility] | + + + | Address | Unknown | + + + | Phone | Unavailable | + + + Support + + + + + | Name | Relationship | Address | Phone | + + + + + | James Castro | ECON | [address] | | | | | [place] | | | | | [address] | | + + + + + Care Team Providers + +------+ + | Care Batting Machine Operator Insulation Name | Role | Phone | + [...] | [employer]AN | ODS | [id number] | | | | | | HEALTH | | | | | | | PLAN | | | | | + +--------+ +------+ + + | VETERANS | VETERA | [id number] | | [phone] [employer] [address] | | ADMINISTRATION | [place] | | | [phone] | | | [address] | | | | [address] [place] | | | [place] | | | | [address] | | | ON | | | [...] | Self | [birth year] | Home: | [address] | | | al/Fam | | 1930 | +- | [place] [address] | | | shara | | | [address] | | + +--------+ +--------+ + + | JAMES CASTRO | Vetera | Self | [birth year] | Home: | [address] | | | ns | | 1930 | +- | [place] | | | Admini | | | [address] | [address] | | | strati | | | | | | | on | | | | | + +--------+ +--------+ + +
--- OUTSIDE RECORDS SUMMARY | ~2019-04-03 | XMS | Encounter Summary ---
Demographics + + + | Address | [address] [place] [address] RD | | | [place] [address] | + + + | Home Phone | | + + + | Preferred Language | Unknown | + + + | Marital Status | | + + + | Baptism Affiliation | 1077 | + + + | Race | Unknown | + + + | Ethnic Group | Unknown | + + + Author + + + | Author | [facility] | | | and [place] | + + + | Organization | [facility] | | | and [place] | + + + | Address | Unknown | + + + | Phone | Unavailable | + + + Support + + + + + | Name | Relationship | Address | Phone | + + + + + | MatthewFrancoisea | ECON | [address] | | | | | [place] | | | | | [address] | | + + + + + Care Team Providers + +------+ + | Care Machine Etcher Name | Role | Phone | + [...] + + | 04/01/ | Telephone | [facility] | [facility], | Appointment | | 2019 | | GASTROENTEROLOGY | ELSIE Newman [address] | | | | | [address] [place] | [place] | | | | | [address] [place], [place] | [place], [place] | | | | | [address] | [address] | | | | | [phone] | | | +--------+ + + + [...] | 05/04/ | Office | Gastroenterology | [facility], | | | 2019 | Visit | | ELSIE Newman [address] | | | | | | [address] | | | | | | [place] | | | | | | [address] | | | | | | | | +--------+---------+ + + + documented as of this encounter Visit Diagnoses Not on filedocumented in this encounter"
--- OUTSIDE RECORDS SUMMARY | ~2019-04-03 | XMS | Encounter Summary ---
Demographics + + + | Address | [address] [place] [address] RD | | | [place] [address] | + + + | Home Phone [...] + | Elaine Castro | ECON | [address] | | | | | [place] | | | | | [address] | | + + + + + Care Team Providers + +------+ + | Care Rnp Name | Role | Phone | + [...] | | type (HCC) | | [place] [address] | | | | | Chronic | | Phone: | | | | | obstructive | | [phone] | | | | | pulmonary | | Fax: | | | | | disease, | | [phone] | | | | | unspecified | [...] | | | | | | | [place] | | | | | | | ESOPHAGOGAST | | | | | | | RODUODENOSCO | | | | | | | PY TRANSORAL | | | | | | | DIAGNOSTIC | | | | | | | [place] EGD | | | | | | | TRANSORAL | | | | | | | BIOPSY | | | | | | | SINGLE/MULTI | | | | | | | PLE [place] | | | | | | | COLONOSCOPY | | | | | | | FLX DX | | | | | | | W/COLLJ SPEC | | | | | | | WHEN PFRMD | | | | | | | [place] | | | | | | | COLONOSCOPY | | | | | | | W/BIOPSY | | | | | | | SINGLE/MULTI | | | | | | | PLE [place] | | | | | | | COLSC FLX | | | | | | | W/RMVL OF | | | | | | | TUMOR POLYP | | | | | | | LESION SNARE | | | | | | | TQ [place] | | | | | | | [...] + + | 03/31/ | Hospital | [facility] | Raghavendra De La Rosa | Chronic obstructive | | 2019 | Encounter | [facility] | MD Eron [address] | pulmonary disease, | | | | [address] | [address] [place] | unspecified COPD | | | | [place], [place] | [place] [address] | type (HCC); Long | | | | [address] | [phone] | term (current) use | | | | [phone] | | of anticoagulants; | | | [...] by your healthcare provider Date Last Reviewed: 12/26/201719997424-4407 [employer]. [address] [place] [address], [place] [address]. All righ ts reserved. This information is [...] | 05/04/ | Office | Gastroenterology | [facility], | | | 2019 | Visit | | ELSIE Newman [address] | | | | | | [address] | | | | | | [place] | | | | | | [address] | | | | | | | [...] 03/31/2019 | PROVATION | | 9:12 AMMRN: [id number] #: [id number] of : | | | 2Admit Type: AmbulatoryAge: 89Room: Endo Room 2Gender: | | | MaleNote Status: FinalizedAttending MD: RAGHAVENDRA DE LA ROSA , | | | MDProcedure: Upper GI | | | endoscopyIndications: Generalized abdominal pain, | | | DiarrheaProviders: RAGHAVENDRA DE LA ROSA MD, Prisca | | | DIANA Braswell, Yaneth Oconnell, | | | Exhibits Coordinator, Eliceo Patterson MD (Anesthesia Staff)Referring | | [...] AMScope | | | Out: 9:29:18 AM [facility], [address] | | | [place] [address] | | | - Resume previous diet. | | | - See the other procedure note for documentation of additional | | | recommendations. | | | - Use Prilosec OTC 20 mg PO daily for 2 months. | | | - Return to GI clinic. | | |RAGHAVENDRA DE LA ORSA MD | | |03/31/2019 9:50:31 AM | | |This report has been signed electronically. | | |Number of Addenda: 0 | | |Note Initiated On: 03/31/2019 9:12 AM | | |Scope In: 9:23:14 AM | | |Scope Out: 9:29:18 AM | | | [facility], [address] [place], [place] | | | [address] | | + + ---+ + +---------+ [...] 03/31/2019 | PROVATION | | 9:11 AMMRN: [id number] #: [id number] of : | | | 2Admit Type: AmbulatoryAge: 89Room: Endo Room 2Gender: | | | MaleNote Status: FinalizedAttending MD: RAGHAVENDRA DE LA ROSA , | | | MDProcedure: ColonoscopyIndications: | | | Generalized abdominal pain, Chronic diarrheaProviders: | | | RAGHAVENDRA DE LA ROSA MD, Prisca Braswell RN, Yaneth | | | Anish, Exhibits Coordinator, Eliceo Salazar | | | MD Leonardo (Anesthesia Staff)Referring MD: Curt Chanel | | | (Referring MD), Paty Newton, | | | INSURANCE AGENCY MANAGER (Referring | | | MD)Medicines: Monitored Anesthesia [...] evaluated | | | using the BBPS ([place] Bowel Preparation Scale) with scores | | [...] [facility] | | | [place], [address] [place] [address] | | | - Await pathology results. [...] |Scope Out: 9:46:59 AM | | | [facility], [address] [place] [address] | | | [address] | | + + ---+ + +---------+ [...] | pulmonary disease, unspecified COPD type), Z79.01 (snf [current] | | | use of anticoagulants), [...] for specific diagnostic | | | abnormality. JVR:[facility]:C2NR GROSS DESCRIPTION: Three specimens | [...] component was performed by | | | [employer] [address] [place] [address] (Medical | | | Director: Hellen Cortez MD; CLIA# [id number]). Professional | | | interpretation was performed by [employer] [place] | | | [facility], [address] [place] [address] | | | [address] ([employer] Director: Rajeev Veloz M.D.). | | | Diagnostician: Rajeev Veloz MD Pathologist Electronically | | | Signed 04/01/2019 | | + + + + +---------+ + + | Performing | Address | City/State/[facility] Centercode | Phone Number | | Organization | | | | + +---------+ + + | [place] [facility] | | | | | [facility] | | | | + +---------+ + + documented in this encounter Visit Diagnoses + + | Diagnosis | + + | Chronic obstructive pulmonary disease, unspecified COPD type (HCC) | + + | alf (current) use of anticoagulants Long-term (current) use [...] type (HCC) | + + | terminal operations manager (current) use of anticoagulants Long-term (current) [...]
--- OUTSIDE RECORDS SUMMARY | ~2019-04-03 | XMS | Encounter Summary ---
Demographics + + + | Address | [address] [place] [address] RD | | | [place] [address] | + + + | Home Phone | | + + + | Preferred Language | Unknown | + + + | Marital Status | | + + + | Episcopal Affiliation | 1077 | + + + | Race | Unknown | + + + | Ethnic Group | Unknown | + + + Author + + + | Author | [facility] | | | and [place] | + + + | Organization | [facility] | | | and [place] | + + + | Address | Unknown | + + + | Phone | Unavailable | + + + Support + + + + + | Name | Relationship | Address | Phone | + + + + + | MatthewFrancoisea | ECON | [address] | | | | | [place] | | | | | [address] | | + + + + + Care Team Providers + +------+ + | Care Supervisor Cigarette Making Department Name | Role | Phone | + [...] + + | 04/01/ | Telephone | [facility] | [facility], | Appointment | | 2019 | | GASTROENTEROLOGY | ELSIE Newman [address] | | | | | [address] [place] | [place], [address] | | | | | [address] [place], [place] | [place], [place] | | | | | [address] | [phone] | | | | | [phone] | | | +--------+ + + + [...] | 05/04/ | Office | Gastroenterology | [facility], | | | 2019 | Visit | | ELSIE Newman [address] | | | | | | [address] | | | | | | [place] | | | | | | [address] | | | | | | | | +--------+---------+ + + + documented as of this encounter Visit Diagnoses Not on filedocumented in this encounter"
--- OUTSIDE RECORDS SUMMARY | ~2019-04-03 | XMS | Encounter Summary ---
Demographics + + + | Address | [address] [place] [address] RD | | | [place] [address] | + + + | Home Phone | | + + + | Preferred Language | Unknown | + + + | Marital Status | | + + + | Anglican Affiliation | 1077 | + + + | Race | Unknown | + + + | Ethnic Group | Unknown | + + + Author + + + | Author | [facility] | | | and [place] | + + + | Organization | [facility] | | | and [place] | + + + | Address | Unknown | + + + | Phone | Unavailable | + + + Support + + + + + | Name | Relationship | Address | Phone | + + + + + | MatthewElaine | ECON | [address] | | | | | [place] | | | | | [address] | | + + + + + Care Team Providers + +------+ + | Care Appraiser Art Name | Role | Phone | + [...] | | | | | burning | CONSERVATION SCIENCE TEACHER [address] | [address] | | | | | sensation | [place] | [address] [place] | | | | | Ray's | [address] TEMO | [address] [place] | | | | | esophagus | [place], [place] | [place], [place] | | | | | Procedures | [address] | [address] | | | | | egd consult | Phone: | Phone: | | | | | | [phone] | [phone] | | | | | | Fax: | Fax: | | | | | | [phone] | [phone] | +--------+--------+ + + + + Encounter [...] | [address] [place] | [place], [address] | abdominal location | | | | [address] [place], [place] | [place], [place] | (Primary Dx); Atrial | | | | [address] | [address] | fibrillation, | | | | [phone] | | unspecified type | | | [...] rx given to patient to take to [place] pharmacy for bowel prep and Zofran; info [...] <1 0 - 3 Final UA Specific [place], External 12/26/2018 1.003 1.001 - 1.03 Final [...] Request - OR/EN DO/ASC/OB: EGD, COLONOSCOPY 4. snf (current) use of anticoagulants Case Request - [...] | 05/04/ | Office | Gastroenterology | [facility], | | | 2018 | Visit | | MIQUEL NewmanP [address] | | | | | | [address] | | | | | | [place] | | | | | | [address] | | | | | | | | +--------+---------+ + + + documented as of this encounter Visit Diagnoses + + | Diagnosis | + + | Abdominal pain, unspecified abdominal location - Primary | + + | Atrial fibrillation, unspecified type (HCC) | + + | Chronic obstructive pulmonary disease, unspecified COPD type (HCC) | + + | snf (current) use of anticoagulants Long-term (current) use of anticoagulants | + + documented in this encounter
--- OUTSIDE RECORDS SUMMARY | ~2019-04-03 | XMS | Encounter Summary ---
Demographics + + + | Address | [address] [place] [address] RD | | | [place] [address] | + + + | Home Phone [...] + + | Author | [facility] | | | and [place] | + + + | Organization | [facility] | | | and [place] | + + + | Address | Unknown | + + + | Phone | Unavailable | + + + Support + + + + + | Name | Relationship | Address | Phone | + + + + + | Elaine Castro | ECON | [address] | | | | | [place] | | | | | [address] | | + + + + + Care Team Providers + +------+ + | Care Assisted Living Assistant Name | Role | Phone | [...] | | type (HCC) | | [place] [address] | | | | | Chronic | | Phone: | | | | | obstructive | | [phone] | | | | | pulmonary | | Fax: | | | | | disease, | | [phone] | | | | | unspecified | [...] | | | | | | | [place] | | | | | | | ESOPHAGOGAST | | | | | | | RODUODENOSCO | | | | | | | PY TRANSORAL | | | | | | | DIAGNOSTIC | | | | | | | [place] EGD | | | | | | | TRANSORAL | | | | | | | BIOPSY | | | | | | | SINGLE/MULTI | | | | | | | PLE [place] | | | | | | | COLONOSCOPY | | | | | | | FLX DX | | | | | | | W/COLLJ SPEC | | | | | | | WHEN PFRMD | | | | | | | [place] | | | | | | | COLONOSCOPY | | | | | | | W/BIOPSY | | | | | | | SINGLE/MULTI | | | | | | | PLE [place] | | | | | | | COLSC FLX | | | | | | | W/RMVL OF | | | | | | | TUMOR POLYP | | | | | | | LESION SNARE | | | | | | | TQ [place] | | | | | | | [...] | | | | | [address] | | | | | | [place] | | | | | | [address] | | | | | | [phone] | | | +--------+---------+ + + + [...] by your healthcare provider Date Last Reviewed: 12/26/201719994600-6691 [employer]. [address] [place] [address], [place] [address]. All righ ts reserved. This information is [...] | 05/04/ | Office | Gastroenterology | [facility], | | | 2019 | Visit | | ELSIE Newman [address] | | | | | | [address] | | | | | | [place] | | | | | | [address] | | | | | | | [...] 03/31/2019 | PROVATION | | 9:12 AMMRN: [id number] #: [id number] of : | | | [address] Type: AmbulatoryAge: 89Room: Endo Room 2Gender: | | | MaleNote Status: FinalizedAttending MD: RAGHAVENDRA DE LA ROSA , | | | MDProcedure: Upper GI | | | endoscopyIndications: Generalized abdominal pain, | | | DiarrheaProviders: RAGHAVENDRA DE LA ROSA MD, [facility] | | | DIANA Braswell, Yaneth Oconnell, | | | Student Development Specialist, Eliceo Patterson MD (Anesthesia Staff)Referring | [...] AMScope | | | Out: 9:29:18 AM [facility], [address] | | | [place] [address] | | | - Resume previous diet. [...] |Scope Out: 9:29:18 AM | | | [facility], [address] [place], [place] | | | [address] | | + + ---+ + +---------+ + + | Performing | Address | City/State/[facility] Service Unitcode | Phone Number | | Organization | [...] 03/31/2019 | PROVATION | | 9:11 AMMRN: [id number] #: [id number] of : | | | [address] Type: AmbulatoryAge: 89Room: Endo Room 2Gender: | | | MaleNote Status: FinalizedAttending MD: RAGHAVENDRA DE LA ROSA , | | | MDProcedure: ColonoscopyIndications: | | | Generalized abdominal pain, Chronic diarrheaProviders: | | | RAGHAVENDRA DE LA ROSA MD, Prisca Braswell RN, Yaneth | | | Anish, Student Development Specialist, Eliceo Salazar | | | MD [...] evaluated | | | using the BBPS ([place] Bowel Preparation Scale) with scores | | [...] | | 9:31:10 AMScope Out: 9:46:59 AM [facility] | | | Center, [address] [place] [address] | | | - Await pathology results. [...] |Scope Out: 9:46:59 AM | | | [facility], [address] [place] [address] | | | [address] | | + + ---+ + +---------+ [...] | pulmonary disease, unspecified COPD type), Z79.01 (intermediate frame tender [current] | | | use of anticoagulants), [...] component was performed by | | | [employer], [address] [place] [address] (Medical | | | Director: Hellen Cortez MD; CLIA# [id number]). Professional | | | interpretation was performed by [facility] | | | [address] | | | [address] (Metal Miner Blasting: Rajeev Veloz M.D.). | | | Diagnostician: [...] COPD type (HCC) | + + | adjunct faculty for medical terminology (current) use of anticoagulants Long-term (current) use of anticoagulants | + + | Abdominal pain, unspecified abdominal location | + + documented in this encounter Admitting Diagnoses + + | Diagnosis | + + | Atrial fibrillation, unspecified type (HCC) | + + | Chronic obstructive pulmonary disease, unspecified COPD type (HCC) | + + | adjunct faculty for medical terminology (current) use of anticoagulants Long-term (current) use [...]
--- OUTSIDE RECORDS SUMMARY | ~2019-04-03 | XMS | Clinical Summary ---
Demographics + + + | Address | [address] [place] [address] RD | | | [place] [address] | + + + | Home Phone [...] + | Elaine Castro | ECON | [address] | | | | | [place] | | | | | [address] | | + + + + + Care Team Providers + +------+ + | Care Shoe Puller Name | Role | Phone | + [...] | 03/16/2019 | + + + | jail (current) use of anticoagulants - apixaban (ELIQUIS) | 03/16/2019 | + + + + + | Overview: apixaban (ELIQUIS) | + + + + + | Abdominal pain, unspecified abdominal location | 03/16/2019 | + + + + + | Overview: Added automatically from request for surgery | | [id number] | + + + + + | Atrial fibrillation, persistent | 03/02/2019 | + + + | Hypertension | 03/02/2019 | + + + | 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 | 03/02/2019 [...] + | 05/04/ | Office | | [facility], | | | 2019 | Visit | | ELSIE Newman [address] | | | | | | [address] | | | | | | [place] | | | | | | [address] | | | | | | | [...] 03/31/2019 | PROVATION | | 9:12 AMMRN: [id number] #: [id number] of : | | | [address]dmit Type: AmbulatoryAge: 89Room: Endo Room 2Gender: | | | MaleNote Status: FinalizedAttending MD: RAGHAVENDRA DE LA ROSA , | | | MDProcedure: Upper GI | | | endoscopyIndications: Generalized abdominal pain, | | | DiarrheaProviders: RAGHAVENDRA DE LA ROSA MD, Prisca | | | DIANA Braswell, Yaneth Oconnell, | | | Bag Inspector, Eliceo Patterson MD (Anesthesia Staff)Referring | | [...] AMScope | | | Out: 9:29:18 AM [facility], [address] | | | [place] [address] | | | - Resume previous diet. [...] |Scope Out: 9:29:18 AM | | | [place] [facility] [address], [address] , [place], [place] | | | [address] | | + + ---+ + +---------+ [...] 03/31/2019 | PROVATION | | 9:11 AMMRN: [id number] #: [id number] of : | | | [address] Type: AmbulatoryAge: 89Room: Endo Room 2Gender: | | | MaleNote Status: FinalizedAttending MD: RAGHAVENDRA DE LA ROSA , | | | MDProcedure: ColonoscopyIndications: | | | Generalized abdominal pain, Chronic diarrheaProviders: | | | RAGHAVENDRA DE LA ROSA MD, Prisca Braswell RN, Yaneth | | | Anish, Bag Inspector, Eliceo [place]azar | | | MD Leonardo (Anesthesia Staff)Referring MD: Curt Chanel | | | (Referring MD), Paty Blankmilwaukee [facility] [place][note 2], | | | ELSIE (Referring | | [...] evaluated | | | using the BBPS ([place] Bowel Preparation Scale) with scores | | [...] | | 9:31:10 AMScope Out: 9:46:59 AM [facility] | | | [place], [address] [place] [address] | | | - Await pathology results. [...] |Scope Out: 9:46:59 AM | | | [facility], [address] [place] [address] | | | [address] | | + + ---+ + +---------+ [...] pulmonary disease, unspecified COPD type), Z79.01 (terminal operations manager [current] | | | use of anticoagulants), [...] specific diagnostic | | | abnormality. JVR:[facility]:C2NR GROSS DESCRIPTION: Three specimens | | | [...] component was performed by | | | [employer], [address] [place] [address] (Medical | | | Director: Hellen Cortez MD; IA# [id number]). Professional | | | interpretation was performed by [employer] [place] | | | [address] | | | [address] (Note Teller: Rajeev Veloz M.D.). | | | Diagnostician: [...] +--------+-------+---------+--------+ | VETERANS ADMIN | [place] | [id number] | | | | Indemn | | | NS | | 019-Pr | | | ity | | | CHOICE | | esent | | | | + +--------+ +--------+-------+---------+--------+ | [employer]ER[employer] ADMIN | [place]ET[place] | [id number] | | | | Indemn | | [...] Person | Self | [birth year] | [address] | | | al/Fam | | 1930 | [phone] | [place] | | | [place]ara | | | 6 (Home) | [address] | + +--------+ +--------+ + + Advance Directives Patient has advance care planning documents on file. For more information, please contact:Janeth [facility] [employer] [facility] [place] [address]
--- OUTSIDE RECORDS SUMMARY | ~2019-04-03 | XMS | Clinical Summary ---
Demographics + + + | Address | [address] [place] [address] RD | | | [place] [address] | + + + | Home Phone [...] + | Elaine Castro | ECON | [address] | | | | | [place] | | | | | [address] | | + + + + + Care Team Providers + +------+ + | Care Equipment Engineer Name | Role | Phone | + [...] | 03/16/2019 | + + + | longterm (current) use of anticoagulants - apixaban (ELIQUIS) | 03/16/2019 | + + + + + | Overview: apixaban (ELIQUIS) | + + + + + | Abdominal pain, unspecified abdominal location | 03/16/2019 | + + + + + | Overview: Added automatically from request for surgery | | [id number] | + + + + + | Atrial fibrillation, persistent | 03/02/2019 | + + + | Hypertension | 03/02/2019 | + + + | 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 | 03/02/2019 [...] + | 05/04/ | Office | | [facility], | | | 2019 | Visit | | ELSIE Newman [address] | | | | | | [address] | | | | | | [place] | | | | | | [address] | | | | | | | [...] 03/31/2019 | PROVATION | | 9:12 AMMRN: [id number] #: [id number] of : | | | 1932dmit Type: AmbulatoryAge: 89Room: Endo Room 2Gender: | | | MaleNote Status: FinalizedAttending MD: RAGHAVENDRA DE LA ROSA , | | | MDProcedure: Upper GI | | | endoscopyIndications: Generalized abdominal pain, | | | DiarrheaProviders: RAGHAVENDRA DE LA ROSA MD, Prisca | | | DIANA Braswell, Yaneth Oconnell, | | | Second Steward, Eliceo Patterson MD (Anesthesia Staff)Referring | | [...] AMScope | | | Out: 9:29:18 AM [facility], [address] | | | [place] [address] | | | - Resume previous diet. [...] |Scope Out: 9:29:18 AM | | | [facility], [address] [place] , [place], [place] | | | [address] | | + + ---+ + +---------+ [...] 03/31/2019 | PROVATION | | 9:11 AMMRN: [id number] #: [id number] of : | | | 1932dmit Type: AmbulatoryAge: 89Room: Endo Room 2Gender: | | | MaleNote Status: FinalizedAttending MD: RAGHAVENDRA DE LA ROSA , | | | MDProcedure: ColonoscopyIndications: | | | Generalized abdominal pain, Chronic diarrheaProviders: | | | RAGHAVENDRA DE LA ROSA MD, Prisca Braswell RN, Yaneth | | | Anish, Second Steward, Eliceo [place]azar | | | MD Leonardo (Anesthesia Staff)Referring MD: Curt Chanel | | | (Referring MD), Paty Blankaspirus [facility], | | | ELSIE (Referring | | [...] evaluated | | | using the BBPS ([place] Bowel Preparation Scale) with scores | | [...] | | 9:31:10 AMScope Out: 9:46:59 AM [facility] | | | [place], [address] [place] [address] | | | - Await pathology results. [...] |Scope Out: 9:46:59 AM | | | [facility], [address] [place] [address] | | | [address] | | + + ---+ + +---------+ [...] pulmonary disease, unspecified COPD type), Z79.01 (terminal manager [current] | | | use of [...] for specific diagnostic | | | abnormality. JVR:[facility]:C2NR GROSS DESCRIPTION: Three specimens | | [...] component was performed by | | | [employer], [address] [place] [address] (Medical | | | Director: Hellen Cortez MD; IA# [id number]). Professional | | | interpretation was performed by [employer] [place] | | | [address] | | | [address] (Hansard Reporter: Rajeev Veloz M.D.). | | | Diagnostician: [...] +--------+-------+---------+--------+ | [employer]ER[employer] ADMIN | [place]ET[place] | [id number] | | | | Indemn | | | NS | | 019-Pr | | | ity | | | CHOICE | | esent | | | | + +--------+ +--------+-------+---------+--------+ | [employer] ADMIN | [place]ET[place] | [id number] | | | | Indemn | | [...] Person | Self | [birth year] | | [address] | | | al/Fam | | 1930 | [phone] | [place] | | | [place]ara | | | 6 (Home) | [address] | + +--------+ +--------+ + + Advance Directives Patient has advance care planning documents on file. For more information, please contact:Janeth [facility] [employer] [facility] [place] [address]
--- OUTSIDE RECORDS SUMMARY | ~2019-04-03 | XMS | Encounter Summary ---
Demographics + + + | Address | [id number] [place] [address] RD | | | [place] [address] | + + + | Home Phone | | + + + | Preferred Language | Unknown | + + + | Marital Status | | + + + | Moravian Affiliation | 1077 | + + + | Race | Unknown | + + + | Ethnic Group | Unknown | + + + Author + + + | Author | [facility] | | | and [place] | + + + | Organization | [facility] | | | and [place] | + + + | Address | Unknown | + + + | Phone | Unavailable | + + + Support + + + + + | Name | Relationship | Address | Phone | + + + + + | Elaine Castro | ECON | [address] | | | | | [place] | | | | | [address] | | + + + + + Care Team Providers + +------+ + | Care Electronic Publisher Name | Role | Phone | + [...] | | type (HCC) | | [place] [address] | | | | | Chronic | | Phone: | | | | | obstructive | | [phone] | | | | | pulmonary | | Fax: | | | | | disease, | | [phone] | | | | | unspecified | [...] | | | | | | | [place] | | | | | | | ESOPHAGOGAST | | | | | | | RODUODENOSCO | | | | | | | PY TRANSORAL | | | | | | | DIAGNOSTIC | | | | | | | [place] EGD | | | | | | | TRANSORAL | | | | | | | BIOPSY | | | | | | | SINGLE/MULTI | | | | | | | PLE [place] | | | | | | | COLONOSCOPY | | | | | | | FLX DX | | | | | | | W/COLLJ SPEC | | | | | | | WHEN PFRMD | | | | | | | [place] | | | | | | | COLONOSCOPY | | | | | | | W/BIOPSY | | | | | | | SINGLE/MULTI | | | | | | | PLE [place] | | | | | | | COLSC FLX | | | | | | | W/RMVL OF | | | | | | | TUMOR POLYP | | | | | | | LESION SNARE | | | | | | | TQ [place] | | | | | | | [...] + + | 03/31/ | Anesthesia | [facility] | Eliceo Patterson MD | | | 2019 | Event | [facility] | [address] | | | | | [address] | [place] | | | | | [place] | [address] | | | | | [address] | [phone] | | | | | [phone] | | | +--------+ + + + [...] 03/31/19 1045 by | | eragin | [id number] catheter system; | Angelita Barajas, RN | [...] | 05/04/ | Office | Gastroenterology | [facility], | | | 2019 | Visit | | ELSIE Newman [address] | | | | | | [address] | | | | | | [place] | | | | | | [address] | | | | | | | [...]
[2019-04-03] MEDS ORDERED: LUBRICANT 0.5-015 ML OP (15:07)
[2019-04-03] MEDS ORDERED: ELIQUIS5 MG PO (15:09)
--- NOTE | 2019-04-03 18:10 | NUR ---
PT IS ALERT AND ORIENTED X4, PLEASANT AND COOPERATIVE. PT DENIES PAIN, NAUSEA, AND SOB, REPORTS BEING HUNGERY. PT ABLE TO SCOOT FROM GURNEY TO BED ON HIS OWN. VITALS WNL AT THIS TIME, NOTED TO BE IN AFIB, RATE CONTROLED. PT IV SITE INTACT, NO REDNESS OR SWELLING NOTED, FLUSHES EASILY.
--- NOTE | 2019-04-03 18:37 | NUR ---
PT ABLE TO EAT ENTIRE CLEAR LIQUID TRAY. IS IN SEEING THE PT AT THIS TIME.
--- NOTE | 2019-04-03 19:57 | NUR ---
DIANA Gibbs instructed me to apply SCDs on pt. Pt and Pts son were not impressed due to him having to get a bowel prep. Stating he will be "tied down to the bed, unable to make it to the restroom. Its sort of degrading to him, dontcha think?" I stated that I am only doing as I am told and the SCDs are to prevent blood clots in the lower legs and pts son stated "when he has a mess make sure the nurse cleans it up, not you" I stated "its my job to help the RNs with anything they need so i will probably be back to help clean up" He said nothing more. DIANA Gibbs notified.
--- NOTE | 2019-04-03 20:00 | NUR ---
ASSESSMENT DONE. MIRALAX GIVEN IN GATERAID PER ORDERS. DENEIS PAIN OR NAUSEA. VISITING WITH SON. TALKED WITH PATIENT ABOUT PLAN OF CARE FOR NIGHT, PATIENT UNDERSTANDING.
--- NOTE | 2019-04-03 22:00 | NUR ---
UP TO COMMODE TO VOID AND EXPELL FORMED STOOL WITH RED-RUST LIQUID WITH STOOL. BACK TO BED W/O INCIDENT. IS STABLE ON FEET.
--- NOTE | 2019-04-03 22:30 | NUR ---
UP TO COMMODE TO EXPELL LIQ LIGHT RED STOOL. CREAMY CONSISTENCY. PATIENT DENIES ABD PAIN.
--- NOTE | 2019-04-04 01:15 | NUR ---
ASSUMED CARE OF PT, REPORT RECEIVED FROM GIANNA ORTIZ. PT APPEARS SLEEPING AT THIS TIME, RESP EVEN AND UNLABORED RR14, HR 70'S AFIB.
--- NOTE | 2019-04-04 01:35 | NUR ---
PT CALLS, UP TO BSC FOR LIQUID STOOL-CREAMY REDDISH IN COLOR. STEADY WHILE UP, HR REMAINS 70'S AND PT DENIES LIGHTHEADED/DIZZINESS. BACK TO BED WITH SIDE RAILS UP.
--- NOTE | 2019-04-04 04:00 | NUR ---
PT CONT TO SLEEP, RESP EVEN UNLABORED.
--- NOTE | 2019-04-04 05:20 | NUR ---
AWAKENS EASILY FOR ASSESSMENT. LAB IN TO DRAW. PT DENIES PAIN/NEEDS AT THIS TIME.
--- NOTE | 2019-04-04 08:00 | NUR ---
ASSESSMENT DONE. MILD GASTRIC DISCOMFORT. UP TO COMMODE TO EXPELL LIQ RUST-RED STOOL. DENIES DIZZINESS. TALKED WITH PATIENT ABOUT PLAN FOR CARE FOR DAY, IS UNDERSTANDING.
--- NOTE | 2019-04-04 08:57 | NUR ---
took medications W/O PROBLEMS. FAMILY MEMBERS ARE IN ROOM. PATIENT HAS MILD GASTRIC DISCOMFORT.
--- NOTE | 2019-04-04 09:49 | NUR ---
TOOK 100% OF CLEAR LIQUIDS. TOLERATED WELL.
--- NOTE | 2019-04-04 10:00 | NUR ---
DR. HINES HERE TO SEE PATIENT AND DISCUSS POC. DR. HINES WILL CONSULT DR. RICARDO REGARDING GIB. PATIENT IS AWARE. PATIENT IS W/O C/O.
--- NOTE | 2019-04-04 12:10 | NUR ---
DR. RICARDO HERE TO SEE PATIENT.
--- NOTE | 2019-04-04 12:40 | NUR ---
TOOK CLEAR LIQUIDS WELL. BOWEL PREP SARTED PER DR. RICARDO ORDERS. PATIENT IS UNDERSTANDING OF COLONOSCOPY. IS AWARE HE IS TO HAVE NOTHING BY MOUTH AFTER MIDNIGHT TONIGHT.
--- NOTE | 2019-04-04 14:30 | NUR ---
CONTINUES TO TAKE BOWEL PREP, DENIES PROBLEMS
--- NOTE | 2019-04-04 15:50 | NUR ---
UP TO BR TO EXPELL 150 ML OF LIQ RUST-RED STOOL. VOIDING QS TO URINAL. DENIES DIZZINESS WITH AMBULATION, IS W/O SHORTNESS OF BREATH OR TACHY WITH EXERTION. ASSESSMENT DONE.
--- NOTE | 2019-04-04 16:00 | NUR ---
ASSESSMENT DONE. SAT AT BEDSIDE FOR MODIFIED SPONGE BATH. TEETH BRUSHED. IN GOOD SPIRITS.
--- NOTE | 2019-04-04 16:15 | NUR ---
BACK UP TO COMMODE TO EXPELL 300 ML OF RUST-RED LIQ STOOL. BACK TO BED W/O PROBLEMS. IS IN ROOM.
--- NOTE | 2019-04-04 16:57 | NUR ---
RESTFUL. NO CHANGES NOTED.
--- NOTE | 2019-04-04 17:15 | NUR ---
UP TO BR TO EXPELL LIQ RUST-RED [id number] AND VOID 300 ML URINE. UPON RETURN TO BED 1 L LR HUNG AT 75 ML/HR.
--- NOTE | 2019-04-04 19:08 | NUR ---
ivf infusing. REPORT GIVEN. BLOOD DRAWN EARLIER.
--- NOTE | 2019-04-04 20:10 | NUR ---
PT UP TO BSC TO VOID AND HAVE 550ML VERY WATERY ORANGE STOOL. ERICKA BEDING UP WELL. SITTING AT BEDSIDE TIRED OF LAY DOWN. RUP SL TENDER TO PALP BUT PT STATES THAT IS NOT UNUSUAL FOR HIM. SCDS OFF FOR NOW WHILE PT HAVING FREQ STOOLS.
--- NOTE | 2019-04-04 22:10 | NUR ---
HAS BEEN RESTING WITHOUT C/O. UP TO BS TO VOID AND HAVE LIQ BM. ERICKA BEING UP WELL. TAKING WATER WELL.
--- NOTE | 2019-04-05 00:08 | NUR ---
UP TO BSC TO VOID AND HAVE WATERY STOOL. STOOL ORANGE JOAQUIN COLORED. TOLERATES BEING UP WELL. STANDS AND BEDSIDE AND REARANGED PILLOWS. IS READY FOR SLEEP. ASSESSMENT DONE.
--- NOTE | 2019-04-05 02:13 | NUR ---
SLEEPING, HR 70'S, RESP REG.
--- NOTE | 2019-04-05 04:10 | NUR ---
PT CONT TO SLEEP. HR 60-70'S.
--- NOTE | 2019-04-05 05:29 | NUR ---
AWAKENS EASILY. UP TO BSC.
--- NOTE | 2019-04-05 05:40 | NUR ---
BACK TO BED AFTER WALKING AT BEDSIDE. NO C/O EXCEPT BEING HUNGRY AND TIRED FROM NOT SLEEPING LONG. PT RINSED MOUTH AND WASHED FACE. .
--- NOTE | 2019-04-05 06:52 | NUR ---
VISITING WITH FAMILY. NO CHANGE.
--- NOTE | 2019-04-05 07:34 | CONS ---
[facility] [address] [place], [place] [address] Signed DATE OF CONSULTATION: 04/04/2019 CHIEF COMPLAINT: Rectal bleeding. HISTORY OF PRESENT ILLNESS: James is an 89-year-old gentleman who had been in my office number of months back. There was some concern about an enlarging ascending aortic aneurysm. He had been to his a p supervisor, Dr. Elena, in [place], [place]. He eventually made his way over to see Dr. Salazar Randle, who is a cardiothoracic surgeon in the [facility]. Apparently, the ascending aortic aneurysm was stable. When he went back through the [facility] in [place], [place], he was referred to Dr. David Hanna through his private insurance and ended up seeing Dr. Mo Fong for his upper and lower endoscopy. He underwent these two procedures on 03/31/2019. He had biopsies from the duodenum and gastric body for his history of diarrhea and mild inflammatory changes along with epigastric and generalized abdominal pain. He also had random colon biopsies taken for pathologic review. Those have all come back negative. In the meantime, he resumed his cilostazol and his Eliquis immediately following the procedure. Unfortunately, he started having bright red blood per rectum. This was associated with some brown stool as well. He came into our local emergency room for evaluation. He has been admitted by the Internal Medicine Service. His hemoglobin was initially 12.9, it is now 11.7. Overall, he has been stable. BUN is fine at 13. INR also good at 1.1. I was asked to see him as a general surgeon on-call for consideration of repeat colonoscopy. He did receive some polyethylene glycol yesterday and seems to have done well with that. Currently, he is in the ICU watching TV and seems to be doing fine. PAST MEDICAL HISTORY: Hypertension, atrial fibrillation, pneumonia, left lung nodule, ascending aortic aneurysm, congestive heart failure, diverticulosis, colonic angiodysplasia, chronic renal failure, gastroesophageal reflux disease, hyperlipidemia, and COPD. PAST SURGICAL HISTORY: Includes his aortobifemoral graft and left lower extremity DVT. SOCIAL HISTORY: He does not smoke currently. He quit back in his 60s. He does not drink. He is to his . He remains a full code and drives around town and remains in these moderate functional status. 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 They prefer the [facility]. He does go to the [facility] in [place], [place]. He also sees Dr. David Hanna as his internal medicine physician and also Dr. Elena is his a p supervisor. FAMILY HISTORY: Electronically Signed By: ARGENTINA RICARDO MD 04/05/19 0734 PATIENT NAME: JAMES WARD CONSULTATION DATE OF : 34 REPORT #: [id number] PHYSICIAN: ARGENTINA RICARDO MD PCP: DAVID HANNA MD REPORT IS CONFIDENTIAL AND NOT TO BE RELEASED WITHOUT AUTHORIZATION [facility] [address] [place] [id number] Signed His dad had CABG. REVIEW OF SYSTEMS: He had 10 systems reviewed and nothing too new except this recent GI bleed. ALLERGIES: Morphine. MEDICATIONS: Rosuvastatin, cilostazol, omeprazole, fluorometholone drops, folate, sucralfate, isosorbide mononitrate, Atrovent, metoprolol, Lasix, Proventil, amlodipine, potassium chloride, guaifenesin, and Eliquis. PHYSICAL EXAMINATION: VITAL SIGNS: Blood pressure is 126/69, heart rate 76, respiratory rate 16. His temperature is 98.0. He is 92% on room air. He is 5 feet 6 inches tall at 71 kg. GENERAL: James is an 89-year-old gentleman who is sitting up, taking clear liquids, watching TV in the ICU. He is not systemically ill or toxic. He is actually a very good historian. LUNGS: Generally clear to auscultation bilaterally. HEART: Irregularly irregular without murmur. ABDOMEN: Moderately protuberant, but soft and nontender. LABORATORY DATA: His white blood count 6.8, hemoglobin 11.7, it was 12.9, neutrophils 59, platelets 136, BUN 13, creatinine 0.97, calcium 7.2. INR 1.1. Liver function tests are negative. His albumin is 4.2. ASSESSMENT AND PLAN: James is an 89-year-old gentleman who had some rectal bleeding following gastric and colonic biopsies. He has been back on his Cilostazol and his Eliquis. Of course, those have been held. Overall, he seems to be doing fine. After talking with the community midwife and James, we have decided we will go ahead and put him through some additional bowel prep today. We will repeat the colonoscopy in the morning. Hopefully, that will be negative and we will be able to discharge him to home. He said he is concerned about his ongoing epigastric abdominal pain. Interestingly, when he takes the Tums, he said he does fine, but the omeprazole and the sucralfate has not helped according to him his symptoms. I had reviewed with James, the nature of the colonoscopy along with its risks and benefits. He has expressed understanding and wishes to proceed. Given his advanced age and medical issues, we will have an anesthesia provider help us with monitored anesthesia care. He has expressed understanding and agrees above plan. Electronically Signed By: ARGENTINA RICARDO MD 04/05/19 0734 PATIENT NAME: JAMES WARD CONSULTATION DATE OF : 34 REPORT #: [id number] PHYSICIAN: ARGENTINA RICARDO MD PCP: DAVID HANNA MD REPORT IS CONFIDENTIAL AND NOT TO BE RELEASED WITHOUT AUTHORIZATION [address] [address] Signed MD RADHA Salazar/FRANCISCO /[id number] cc: MD Argentina Moise MD [facility] Marisela Elena Copies: DAVID HANNA MD, ANDREW L MD ~ Electronically Signed By: ARGENTINA RICARDO MD 04/05/19 0734 PATIENT NAME: JAMES WARD CONSULTATION DATE OF : 34 REPORT #: [id number] PHYSICIAN: ARGENTINA RICARDO MD PCP: DAVID HANNA MD REPORT IS CONFIDENTIAL AND NOT TO BE RELEASED WITHOUT AUTHORIZATION
--- NOTE | 2019-04-05 07:47 | NUR ---
PATIENT USES CALL LIGHT AND GETS UP TO USE BSC. PT ONLY PASSING FLATUS AT HTIS TIME BUT DOES VOID 350 ML CLEAR YELLOW URINE. PT DENIES PAIN. PT PENDING PROCEDURE THIS MORNING. PATIENT'S FAMILY IN ROOM AT THIS TIME AND UPDATED ON PLAN OF CARE. ASSESSMENT COMPLETE.
--- NOTE | 2019-04-05 10:34 | NUR ---
04/05/19 1034 Betty Hendrix 1020- PT ARRIVES TO PACU ON 4 L VIA NC. PT AROUSABLE TO VERBAL STIMULUS AND FALLS BACK ASLEEP EASILY. SATS 100%. PT IN A-FIB WHICH WAS HIS BASELINE PRIOR TO HIS COLONOSCOPY PROCEDURE. PT HAD MAC ANESTHESIA WITH PROPOFOL. 1025- PT AWAKE AND ALERT AND RESPONDS TO QUESTIONS APPROPRIATELY. PT REPORTS PASSING GAS AND ENC TO CONTINUE TO DO SO. SATS 95% ON RA. VSS. 1034- PT ROLLS ONTO BACK AND DENIES PAIN/NAUSEA. SATS 94% ON RA.
--- NOTE | 2019-04-05 10:57 | NUR ---
PATIENT LEAVES FOR COLONOSCOPY AT 0945 AND RETURNS AT 1050. PATIENT HAD SOME CLIPS PLACED PER DR. RICARDO IN BLEEDING AREAS. PATIENT ALERT, ORIENTED, AND COOPERATIVE. PATIENT DENIES HAVING ANY PAIN AT THIS TIME AND STATES HE IS HUNGRY AND READY FOR FOOD. DR. HINES NOW IN ROOM TO SEE PATIENT. LUNCH WILL BE PROVIDED FOR PATIENT AND CAN ADVANCE TOLERATED.
--- NOTE | 2019-04-05 11:12 | NUR ---
LUNCH ORDERED FOR PATIENT. PATIENT TO TRANSFER TO THE MEDICAL FLOOR WITHOUT TELEMETRY.
--- NOTE | 2019-04-05 12:06 | NUR ---
REPORT GIVEN TO DIANA OGLESBY ON MED/SURG. PATIENT TO TRANSFER TO ROOM 109 WHEN HE HAS FINISHED WITH HIS LUNCH TRAY. PT TAKEN OFF HEART MONITOR AT THIS TIME.
--- NOTE | 2019-04-05 12:42 | NUR ---
1227: PT ARRIVED TO MED-SURG VIA A WALKING TRANSFER FROM CCU. REPORT RECIVED FROM ESTHELA ORTIZ. PT DENIES ANY PAIN, NAUSEA OR ANY LIGHTHEADEDNESS. PT ORIENTED TO THE ROOM AND WAS GIVEN THE CALL RILEY. VSS AND ASSESSMENT COMPLETED.
--- NOTE | 2019-04-05 15:17 | NUR ---
Pt sleeping in his recliner at this time.
--- NOTE | 2019-04-05 15:48 | NUR ---
Pt continues sleeping in his recliner at this time.
--- NOTE | 2019-04-05 16:31 | NUR ---
Pt resting in his room and continues to denie any problems.
--- NOTE | 2019-04-05 17:44 | NUR ---
PATIENT SITTING UP IN EDGE OF BED, BEDSIDE. CALL LIGHT IN REACH. NO FURTHER NEEDS AT THIS TIME.
--- NOTE | 2019-04-05 17:49 | NUR ---
Pt resting at the bedside and he denies any problems.
--- NOTE | 2019-04-05 17:50 | NUR ---
Pt arrived to [facility] from CCU at 1227 this afternoon. He is stable on his feet and is independent in the room. He denies lightheadness or problmes related to his GI bleed. He had a colonoscopy today with clips applied to prior bx sites per report. He is on a full liquid diet and has orders to hold ASA, NSAIDS and blood thinners for 10 days. He has been eating well and denies any pain and his vital signs are stable.
--- NOTE | 2019-04-05 19:55 | NUR ---
up edge of bed, ambulating inroom, no c/o pain. Coop with assessment, dry non prod cough present. sl lfa patent.
--- NOTE | 2019-04-05 22:24 | NUR ---
RHEUMATOLOGY SPECIALIST ROUNDING NOTE. PT RESTING ON EDGE OF BED. DENIES NEEDS AT THIS TIME. STATES THAT HE WILL CALL WHEN HE IS READY FOR BED. CALL LIGHT IN REACH. WHITE BOARD UPDATED.
--- NOTE | 2019-04-06 00:52 | NUR ---
PT RESTING, EYES CLOSED, NO RESP DISTRESS, ON ROOM AIR. CALL LIGHT AND LIQUIDS AT BEDSIDE
--- NOTE | 2019-04-06 05:21 | NUR ---
PT RESTING, AWAKENS EASILY, NO C/O PAIN. HAD SMALL DARK BROWN/PINKISH COLORED BM. GETS UP INDEPENDENT IN ROOM. NO C/O PAIN. NO N/V. TOLERATING FLUIDS WELL.
--- NOTE | 2019-04-06 07:12 | OR ---
[facility] [address] [place], [place] [address] Signed DATE OF OPERATION: 04/05/2019 SURGEON: Argentina Ricardo MD PREOPERATIVE DIAGNOSES: 1. Rectal bleeding status post colonoscopy with random cold biopsies. 2. Diverticulosis. 3. Angiodysplasia. POSTOPERATIVE DIAGNOSES: 1. Multiple clotted biopsy sites. 2. Minimal sigmoid diverticulosis. PROCEDURE: Colonoscopy with multiple clippings. ESTIMATED BLOOD LOSS: None. FINDINGS: James had no active bleeding. No bright red blood in the colon. Each and every biopsy site had a soft dark blood clot. We clipped all the biopsy sites in the distal half of the colon and the proximal ones we left unclipped. INDICATIONS: James is an 89-year-old gentleman. He does have a significant past medical history including his aneurysm of the ascending aorta. He is also in chronic atrial fibrillation with peripheral arterial disease as well. Consequently, he has been on Eliquis along with cilostazol. He ended up with upper and lower endoscopy for epigastric abdominal pain and diarrhea. He had had some biopsies from the duodenum and the antrum of stomach along with multiple random cold biopsies throughout the length of the colon. He went back on his Eliquis on the day of his procedure. Unfortunately, he was having bright red blood per rectum just a few days later. He was admitted to our local hospital with respect to the above. Of course, the Eliquis was stopped and we put him through a bowel prep. His initial hemoglobin was 12.9, it is now running around 11.7. Overall, he has done well. I explained to James it is probably worth to go back and look in the colon and see if everything is healing up well. If anything was concerning, we could certainly cauterize or clip those areas. He is very aware of colonoscopy along with its risks including, but not limited to gas, bloating, crampy abdominal pain, bleeding, perforation requiring surgery, and missed diagnosis. Also, Electronically Signed By: ARGENTINA RICARDO MD 04/06/19 0712 PATIENT NAME: JAMES WARD OPERATIVE REPORT DATE OF : 34 REPORT #: [id number] PHYSICIAN: ARGENTINA RICARDO MD PCP: DAVID KAUFMAN MD REPORT IS CONFIDENTIAL AND NOT TO BE RELEASED WITHOUT AUTHORIZATION [facility] [address] [place] [id number] Signed because of his advanced age and medical issues, we did have an anesthesia provider help us with increased monitoring sedation with propofol. He had expressed his understanding and wished to proceed. PROCEDURE NOTE: James was taken into our endoscopy suite and placed in the left lateral decubitus position. He told me he had continued to see some bright red blood yesterday. He said he had no bowel movement this morning. He was given IV sedation with propofol per our nurse hedis analyst. A digital rectal exam was performed. He does have some induration and slight increase in size of the prostate gland. No bright red blood on the index finger. The adult colonoscope was then introduced and advanced all the way around into cecum under direct visualization of camera without difficulty. His prep was quite excellent. The scope was slowly withdrawn. Starting in the cecum itself, each and every biopsy site had a soft dark clot. No active bleeding. We clipped all the biopsy sites in the distal half of the colon. The proximal half, we left unclipped. We did wipe one of the clots off and there was no active bleeding underneath. We have taken pictures throughout for photodocumentation. He also has just a few diverticula in the sigmoid colon. They were small in size, few in number, and scattered about. In the rectum, the scope had been retroflexed. He really has very little if any internal hemorrhoid tissue. After this, the gas was suctioned out and colonoscope removed. James tolerated the procedure quite well. RECOMMENDATIONS: James is going to be returned to his ICU bed and we will start him on a full liquid diet. We will keep him off aspirin, NSAIDs, the cilostazol, and his Eliquis for about 10 days and that should be sufficient for biopsy sites to heal. He is welcome to follow up with his commercial account officer as previously scheduled. Argentina Ricardo MD ALB/MODL /[id number] cc: MD David Salazar MD Electronically Signed By: ARGENTINA RICARDO MD 04/06/19 0712 PATIENT NAME: JAMES WARD OPERATIVE REPORT DATE OF : 34 REPORT #: [id number] PHYSICIAN: ARGENTINA RICARDO MD PCP: DAVID KAUFMAN MD REPORT IS CONFIDENTIAL AND NOT TO BE RELEASED WITHOUT AUTHORIZATION [address] [facility] [address] Copies: ARGENTINA RICARDO MD, KEVIN R MD ~ Electronically Signed By: ARGENTINA RICARDO MD 04/06/19711 PATIENT NAME: JAMES WARD OPERATIVE REPORT DATE OF : 34 REPORT #: [id number] PHYSICIAN: ARGENTINA RICARDO MD PCP: DAVID KAUFMAN MD REPORT IS CONFIDENTIAL AND NOT TO BE RELEASED WITHOUT AUTHORIZATION
--- NOTE | 2019-04-06 07:34 | NUR ---
PATIENT INDPENDENT IN ROOM. UP TO BATHROOM TO DO AM CARE AND THEN TO CHAIR. LINENS CHANGED. CALL LIGHT IN REACH. NO FURTHER NEEDS AT THIS TIME.
--- NOTE | 2019-04-06 09:19 | NUR ---
PATIENT UP IND. IN ROOM. CALL LIGHT IN REACH. NO FURTHER NEEDS AT THIS TIME.
== END 2019-04-06 11:50 | disposition home or self-care (01) | DRG 919 ==
LOC: ED 14:48 → CCU 14:49 → ED 17:44 → CCU 17:44 → MS 17:44 → CCU 04-05 12:35 → MS 04-05 12:35
PROVIDERS: Colon & Rectal Surgery; ADMIT Internal Medicine
PROC: 0W3P8ZZ Control Bleeding in Gastrointestinal Tract, Via Natural or Artificial Opening Endoscopic (ICD-10-PCS; principal; 2019-04-05 09:29)
DX: K91.840 Postprocedural hemorrhage of a digestive system organ or structure following a digestive system procedure (principal); K55.21 Angiodysplasia of colon with hemorrhage; K57.31 Diverticulosis of large intestine without perforation or abscess with bleeding; D62 Acute posthemorrhagic anemia; I13.0 Hypertensive heart and chronic kidney disease with heart failure and stage 1 through stage 4 chronic kidney disease, or unspecified chronic kidney disease; I50.32 Chronic diastolic (congestive) heart failure; N18.3 Chronic kidney disease, stage 3 (moderate); I48.2 Chronic atrial fibrillation; I73.9 Peripheral vascular disease, unspecified; E78.5 Hyperlipidemia, unspecified; K21.9 Gastro-esophageal reflux disease without esophagitis; I25.10 Atherosclerotic heart disease of native coronary artery without angina pectoris; K29.70 Gastritis, unspecified, without bleeding; J44.9 Chronic obstructive pulmonary disease, unspecified; Z87.891 Personal history of nicotine dependence; Z88.5 Allergy status to narcotic agent; Z79.02 Long term (current) use of antithrombotics/antiplatelets; Z79.899 Other long term (current) drug therapy
CPT/HCPCS: 36415; 80048; 80053; 83735; 84100; 85025; 85610; 86850; 86900; 86901; 86920; 96374; 99285-25; C9113; J2704; J3475; J7120

== ENCOUNTER 2020-06-20 17:14 | Emergency (ER) | payer MEDICARE ==
[~2020-06-20] VITALS: Ht 167.6 cm; Wt 71.9 kg
--- OUTSIDE RECORDS SUMMARY | ~2020-06-20 | XMS | Encounter Summary ---
Demographics + + + | Address | [address] [place] [address] RD | | | [place] [address] | + + + | Home Phone | | + + + | Preferred Language | Unknown | + + + | Marital Status | | + + + | Presybeterian Affiliation | 1077 | + + + | Race | White | + + + | Ethnic Group | Not or | + + + Author + + + | Author | [facility] | | | and [place] | + + + | Organization | [facility] | | | and [place] | + + + | Address | Unknown | + + + | Phone | Unavailable | + + + Support + + + + + | Name | Relationship | Address | Phone | + + + + + | Elaine Castro | ECON | [address] | | | | | [place] | | | | | [address] | | + + + + + Care Team Providers + +------+ + | Care Assembler Metal Building Name | Role | Phone | + +------+ + | Curt Chanel | PCP | | + +------+ + Reason for Visit Auth/Cert +--------+--------+ + + + + | Status | Reason | Specialty | Diagnoses / | Referred By | Referred To | | | | | Procedures | Contact | Contact | +--------+--------+ + + + + | | | | Diagnoses | | Magy, | | | | | Atrial | | Raghavendra Eron, | | | | | fibrillation | | MD [address] | | | | , | | [address] | | | | | unspecified | | [place], | | | | | type (HCC) | | [place] [address] | | | | | Chronic | | Phone: | | | | | obstructive | | [phone] | | | | | pulmonary | | Fax: | | | | | disease, | | [phone] | | | | | unspecified | | | | | | | COPD type | | | | | | | (HCC) Long | | | | | | | term | | | | | | | (current) | | | | | | | use of | | | | | | | anticoagulan | | | | | | | ts | | | | | | | Abdominal | | | | | | | pain, | | | | | | | unspecified | | | | | | | abdominal | | | | | | | location | | | | | | | Procedures | | | | | | | [place] | | | | | | | ESOPHAGO[place]ST | | | | | | | RODUODENOSCO | | | | | | | PY TRANSORAL | | | | | | | DIAGNOSTIC | | | | | | | [place] EGD | | | | | | | TRANSORAL | | | | | | | BIOPSY | | | | | | | SINGLE/MULTI | | | | | | | PLE [place] | | | | | | | COLONOSCOPY | | | | | | | FLX DX | | | | | | | W/COLLJ SPEC | | | | | | | WHEN PFRMD | | | | | | | [place] | | | | | | | COLONOSCOPY | | | | | | | W/BIOPSY | | | | | | | SINGLE/MULTI | | | | | | | PLE AK | | | | | | | COLSC FLX | | | | | | | W/RMVL OF | | | | | | | TUMOR POLYP | | | | | | | LESION SNARE | | | | | | | TQ AK | | | | | | | ANESTHESIA | | | | | | | COMBINED | | | | | | | UPPER&LOWER | | | | | | | GI | | | | | | | ENDOSCOPIC | | | | | | | PX EGD | | | | | | | COLONOSCOPY | | | +--------+--------+ + + + + Encounter Details +--------+ + + + + | Date | Type | Department | Care Team | Description | +--------+ + + + + | 03/31/ | Anesthesia | [facility] | Eliceo Patterson MD | | | 2019 | Event | [facility] | [address] | | | | | [address] | [place] | | | | | [place] | [address] | | | | | [address] | [phone] | | | | | [phone] | | | +--------+ + + + + Anesthesia Record + + + + + | Procedure Name | Responsible | Anesthesia Start | Anesthesia Stop Time | | | Anesthesiologist | Time | | + + + + + | KANIKA (N/A John) | Eliceo Patterson MD | 03/31/1914 | 03/31/19 0956 | + + + + + +----+---+ + + | Da | T | Event | Comment | | te | i | | | | | m | | | | | e | | | +----+---+ + + | 06 | 0 | An Checkout | Pre-use anesthesia machine/equipment checkout. | | /0 | 9 | | | | 4/ | 1 | | | | 20 | 3 | | | | 19 | | | | +----+---+ + + | | 0 | | | | | 9 | | | | | 1 | | | | | 4 | | | +----+---+ + + | | 0 | An Start | Reassessment prior to anesthesia induction/procedure. | | | 9 | | | | | 1 | | | | | 6 | | | +----+---+ + + | | 0 | An Start | | | | 9 | Data | | | | 1 | | | | | 7 | | | +----+---+ + + | | 0 | Pre-Procedu | | | | 9 | ral Timeout | | | | 1 | Completed | | | | 9 | | | +----+---+ + + | | 0 | an stop | | | | 9 | data | | | | 4 | | | | | 9 | | | +----+---+ + + | | 0 | An Stop | Patient handed off to recovery nurse. | | | 5 | | | | | 6 | | | +----+---+ + + +------+ | Meds | +------+ + + + | Name | Total | + + + | propofol | 90 mg | + + + | propofol | 243.6 mg | + + + | lidocaine 2% | 60 mg | + + + | lactated ringers (LR) infusion | 400 mL | + + + + + | No agents on file. | + + + + | No blood administrations on file. | + + +--------+ + + + | Type | Details | Placement | Removal | +--------+ + + + | Periph | 03/31/19; 0826; Right; Hand; | 03/31/19 0826 by | 03/31/19 1045 by | | eral | [id number] catheter system; | Angelita Barajas RN | Nadira Nogueira, | | IV | 20 gauge; distraction, | | RN | | | intradermal injection; no longer | | | | | indicated, removed per | | | | | policy/procedure, catheter/device | | | | | intact; short term use; | | | | | 03/31/19; 1045 | | | +--------+ + + + documented in this encounter Social History + + + +--------+ + | Tobacco Use | Types | Packs/Day | Years | Date | | | | | Used | | + + + +--------+ + | Former Smoker | Cigarettes | | 45 | Quit: 10/28/1998 | + + + +--------+ + + +---+---+---+ | Smokeless Tobacco: | | | | | Never Used | | | | + +---+---+---+ + + +---------+ + | Alcohol Use | Drinks/Week | oz/Week | Comments | + + +---------+ + | Not Currently | | | | + + +---------+ + + + + | Sex Assigned at | Date Recorded | | | | + + + | Not on file | | + + + documented as of this encounter OR Notes Anesthesia Postprocedure Evaluation - Eliceo Patterson MD - 03/31/2019 12:16 PM PDTSilvestre bonilla of this note might be different from the original. ANESTHESIA POSTANESTHESIA EVALUATION James Castro 89 y.o. male 1930 [id number] Procedure(s) EGD (N/A Mouth) COLONOSCOPY (N/A Rectum) Cooperates? Yes Mental Status Performs simple tasks. Respiratory Satisfactory - Airway patent (self maintained). Cardiovascular Satisfactory - Blood pressure and heart rate acceptable Temperature Satisfactory Pain Satisfactory N/V Control Satisfactory Hydration Satisfactory - No signs of dehydration Complications None apparent Vitals Value Taken Time Temp 36.6 C (97.9 F) 03/31/2019 9:56 Pulse 68 03/31/2019 10:19 Resp 20 03/31/2019 10:00 BP 109/56 03/31/2019 10:14 Arterial Line BP Arterial Line BP 2 SpO2 93 % 03/31/2019 10:19 Vitals shown include unvalidated device data. Electronically signed by Eliceo Patterson MD 03/31/2019 12:16 CONFLUENCE HEALTHElectronically signed by Eliceo Patterson MD at 03/31 12:16 PM PDTAnesthesia Preprocedure Evaluation - Eliceo Patterson MD - 03/31/2019 9:02 AM PDT ANESTHESIA PREANESTHESIA EVALUATION James Castro 89 y.o. male 1930 [id number] Procedure(s): EGD (N/A Mouth) COLONOSCOPY (N/A Rectum) Medical,anesthesia, drug, allergy histories reviewed, NPO status verified. (-) perioperative beta-muriel/statin not given/taken Reasons Beta Muriel not given/taken :not applicable/Not taking Beta-Muriel. . Review of Systems / Med History Anesthesia History (+) previous surgery or anesthesia Cardiovascular (+) Dysrhythmias: (+) persistent atrial fibrillation, (+) essential hypertension, (+) PVD: right LE PVD, left LE PVD . Pulmonary (+) Chronic Obstructive Pulmonary Disease. (+) tobacco use. (+) ex-smoker. Gastrointestinal/Hepatic (+) bowel prep, hypercholesterolemia. Neuromuscular (+) TIA. Physical Exam Airway MP II, TM >3 FB, Mouth opening >2 FB. Neck: full ROM, extends <30 degrees. Jaw protrus ion normal. Dental ; (+) dentures-lower and dentures-upper. CV Rhythm irregular. Rate Normal. Neuro Grossly normal. Anesthesia Plan ASA 3 (a-fib,tia) Type: General, TIVA. Induction: Intravenous. Potential problems: None anticipated. Monitors: Standard ASA monitors. Consent statement:Anesthetic plan, alternatives, risks and benefits discussed with patient, spouse and family. Risks discussed included (but were not limited to): sore throat, pain, nausea,. Consenting person understands and agrees to proceed . documented in this enc ounter Plan of Treatment +--------+---------+ + + + | Date | Type | Specialty | Care Team | Description | +--------+---------+ + + + | 01/04/ | Office | Cardiology | Nancy Flores, | | | 2020 | Visit | | MD [place] | | | | | | [place], [place] | | | | | | [address] | | | | | | | | +--------+---------+ + + + documented as of this encounter Visit Diagnoses Not on filedocumented in this encounter Administered Medications + +--------+ +-------+------+------+ | Medication Order | MAR | Action | Dose | Rate | Site | | | Action | Date | | | | + +--------+ +-------+------+------+ | lidocaine (PF) 2% injection | Given | 03/31/20 | 60 mg | | | | Intravenous, PRN, Starting Tue | | 19 9:19 | | | | | 03/31/19 at 918, Anesthesia | | AM PDT | | | | | Intra-op | | | | | | + +--------+ +-------+------+------+ +---+---+ | | | +---+---+ + +-------+ +-------+---+---+ | propofol (DIPRIVAN) injection | Given | 03/31/20 | 30 mg | | | | Intravenous, PRN, Starting Tue | | 19 9:20 | | | | | 03/31/19 at 0919, Anesthesia | | AM PDT | | | | | Intra-op | | | | | | + +-------+ +-------+---+---+ +-------+ +-------+---+---+ | Given | 03/31/20 | 60 mg | | | | | 19 9:19 | | | | | | AM PDT | | | | +-------+ +-------+---+---+ +---+---+ | | | +---+---+ + + + + +-------+---+ | propofol (DIPRIVAN) injection | Rate/Dos | 03/31/20 | 120 | 52.2 | | | Intravenous, CONTINUOUS PRN, | e Change | 19 9:32 | mcg/kg/m | mL/hr | | | Starting 03/31/19 at 0921, | | AM PDT | in | | | | Anesthesia Intra-op | | | | | | + + + + +-------+---+ + + + +-------+---+ | Rate/Dose Change | 03/31/20 | 140 | 60.9 | | | | 19 9:22 | mcg/kg/m | mL/hr | | | | AM PDT | in | | | + + + +-------+---+ | New Bag | 03/31/20 | 160 | 69.6 | | | | 19 9:21 | mcg/kg/m | mL/hr | | | | AM PDT | in | | | + + + +-------+---+ +---+---+ | | | +---+---+ documented in this encounter"
--- OUTSIDE RECORDS SUMMARY | ~2020-06-20 | XMS | Encounter Summary ---
Demographics + + + | Address | [address] [place] [address] RD | | | [place] [address] | + + + | Home Phone | | + + + | Preferred Language | Unknown | + + + | Marital Status | | + + + | Hoahaoism Affiliation | 1077 | + + + | Race | White | + + + | Ethnic Group | Not or | + + + Author + + + | Author | [facility] | | | and [place] | + + + | Organization | [facility] | | | and [place] | + + + | Address | Unknown | + + + | Phone | Unavailable | + + + Support + + + + + | Name | Relationship | Address | Phone | + + + + + | Elaine Castro | ELA | [address] | | | | | [place] | | | | | [address] | | + + + + + Care Team Providers + +------+ + | Care Money Market Clerk Name | Role | Phone | + +------+ + | Curt Chanel | PCP | | + +------+ + Reason for Visit + +--------+ + | Reason | Onset | Comments | | | Date | | + +--------+ + | Appointment | 04/01/ | | | | 2019 | | + +--------+ + Encounter Details +--------+ + + + + | Date | Type | Department | Care Team | Description | +--------+ + + + + | 04/01/ | Telephone | [facility] [place] | [facility], | [facility] | | 2019 | | GASTROENTEROLOGY | ELSIE Newman [address] | | | | | [address] [place] | [address] [place] [address] | | | | | [address] [place], [place] | [place], [place] | | | | | [address] | [address] | | | | | [phone] | | | +--------+ + + + + Social History + + + +--------+ + [...] + + documented as of this encounter Miscellaneous Notes Telephone Encounter - Mary Cullen - 04/06/2019 9:20 AM PDTPatient is scheduled 9 with gregorio Alcaraz. 9:4 2 AM PDTdocumented in this encounter Plan of Treatment +--------+---------+ + + + | Date | Type | Specialty | Care Team | Description | +--------+---------+ + + + | 01/04/ | Office | Cardiology | Nancy Flores, | | | 2020 | Visit | | MD [place] | | | | | | [place] | | | | | | [address] | | | | | | | | +--------+---------+ + + + documented as of this encounter Visit Diagnoses Not on filedocumented in this encounter"
--- OUTSIDE RECORDS SUMMARY | ~2020-06-20 | XMS | Encounter Summary ---
Demographics + + + | Address | [address] [place] [address] RD | | | [place] [address] | + + + | Home Phone | | + + + | Preferred Language | Unknown | + + + | Marital Status | | + + + | Advent Affiliation | 1077 | + + + | Race | White | + + + | Ethnic Group | Not or | + + + Author + + + | Author | [facility] | | | and [place] | + + + | Organization | [facility] | | | and [place] | + + + | Address | Unknown | + + + | Phone | Unavailable | + + + Support + + + + + | Name | Relationship | Address | Phone | + + + + + | Elaine Castro | ECON | [address] | | | | | [place] | | | | | [address] | | + + + + + Care Team Providers + +------+ + | Care Canal Lock Tender Chief Operator Name | Role | Phone | + +------+ + | Curt Chanel | PCP | | + +------+ + Reason for Visit + +--------+ + | Reason | Onset | Comments | | | Date | | + +--------+ + | Procedure | 03/18/ | questions | | | 2019 | | + +--------+ + Encounter Details +--------+ + + + + | Date | Type | Department | Care Team | Description | +--------+ + + + + | 03/18/ | Telephone | [facility] [place] | Raghavendra Bhatti | Procedure | | 2019 | | GASTROENTEROLOGY | MD Eron [address] | (questions) | | | | [address] [place] | [address] [facility] | | | | | [address] [place], [place] | [place] [address] | | | | | [address] | [phone] | | | | | [phone] | | | +--------+ + + + + Social History + +-------+ [...] this encounter Miscellaneous Notes Telephone Encounter - Fransisca Reich RN - 03/19/2019 9:49 AM PDTSpoke with patient (called him and then he called back as call was dropped); reviewed prep instructions again; confirmed his procedure was covered; he will hold Eliquis 24 hr prior; hold PPI meds, Carafa te; he will take his blood pressure meds day of procedure; he confirmed his procedure date a s 03/31/[address] Bhatti for EGD/Colon. elephone Encounter - Fransisca Reich RN - 03/18/2019 12 :12 PM PDTPatient is scheduled currently on 03/31/19 for EGD/Colon with Dr. Bhatti at 0800 foll owing office visit with Lissa on 03/02/19 (see notes - he is to hold Eliquis 24 hr prior to pro cedure). elephon e Encounter - Mary Cullen - 03/18/2019 9:08 AM PDTPatient called in to speak with Gregorio pritesh, he states that he is to get an EGD on April 02 and it was mentioned that we wanted h im to get a colonoscopy as well. He wants to make sure that this has been authorized from [employer] and that they will pay for it and he won't be responsible. I told him that if it was s omething we wanted done we would request auth for it and if it's denied we would let him kno w. He verbalized understanding and just wanted to make sure it was all in the works. He will be gone this afternoon to another apt. But you can call him after that or tomorrow, he said his phone went wacky and you can't leave messages, but he believes his will be home. documented in thi s encounter Plan of Treatment +--------+---------+ + + + | Date | Type | Specialty | Care Team | Description | +--------+---------+ + + + | 01/04/ | Office | Cardiology | Nancy Flores, | | | 2020 | Visit | | MD [place] | | | | | | [place] | | | | | | [address] | | | | | | | | +--------+---------+ + + + documented as of this encounter Visit Diagnoses Not on filedocumented in this encounter"
--- OUTSIDE RECORDS SUMMARY | ~2020-06-20 | XMS | Encounter Summary ---
Demographics + + + | Address | [address] [place] [address] RD | | | [place] [address] | + + + | Home Phone | | + + + | Preferred Language | Unknown | + + + | Marital Status | | + + + | Restoration Affiliation | 1077 | + + + | Race | White | + + + | Ethnic Group | Not or | + + + Author + + + | Author | [facility] | | | and [place] | + + + | Organization | [facility] | | | and [place] | + + + | Address | Unknown | + + + | Phone | Unavailable | + + + Support + + + + + | Name | Relationship | Address | Phone | + + + + + | Elaine Castro | ECON | [address] | | | | | [place] | | | | | [address] | | + + + + + Care Team Providers + +------+ + | Care Retail Store Manager Name | Role | Phone | + +------+ + PCP | Unavailable | + +------+ + Encounter Details +--------+ + + + + | Date | Type | Department | Care Team | Description | +--------+ + + + + | 03/31/ | Hospital | [facility] | | | | 1997 | Encounter | MED CTR XRAY [address] | | | | | | [place] | | | | | | [place] [address] | | | | | | [phone] | | | +--------+ + + + + Social History + +-------+ +--------+------+ | Tobacco Use | Types | Packs/Day | Years | Date | | | | | Used | | + +-------+ +--------+------+ | Never Assessed | | | | | + +-------+ +--------+------+ + + + | Sex Assigned at [...] [place] | | | | | | [address] | | | | | | | | +--------+---------+ + + + documented as of this encounter Visit Diagnoses Not on filedocumented in this encounter"
--- OUTSIDE RECORDS SUMMARY | ~2020-06-20 | XMS | Encounter Summary ---
Demographics + + + | Address | [id number] [place] [address] RD | | | [place] [address] | + + + | Home Phone | | + + + | Preferred Language | Unknown | + + + | Marital Status | | + + + | Scientologist Affiliation | 1077 | + + + | Race | White | + + + | Ethnic Group | Not or | + + + Author + + + | Author | [facility] | | | and [place] | + + + | Organization | [facility] | | | and [place] | + + + | Address | Unknown | + + + | Phone | Unavailable | + + + Support + + + + + | Name | Relationship | Address | Phone | + + + + + | Elaine Castro | ECON | [address] | | | | | [place] | | | | | [address] | | + + + + + Care Team Providers + +------+ + | Care Patient Flow Coordinator Name | Role | Phone | + +------+ + | Curt Chanel | PCP | | + +------+ + Reason for Visit + + + | Reason | Comments | + + + | Follow-up | | + + + Evaluate & Treat [...] | | ogy | Epigastric | Curt Aldrich, | Gastroenterol | | | | | burning | [address] | ogy [address] | | | | | sensation | [place] | [address] | | | | | [address] | [address] | [address] [place] | | | | | esophagus | [place], [place] | [place] | | | | | Procedures | [id number] | [address] | | | | | egd consult | Phone: | Phone: | | | | | | [phone] | [phone] | | | | | | Fax: | Fax: | | | | | | [phone] | [phone] | +--------+--------+ + + + + Encounter Details +--------+---------+ + + + | Date | Type | Department | Care Team | Description | +--------+---------+ + + + | 05/04/ | Office | [facility] | [facility], | Abdominal pain, | | 2019 | Visit | GASTROENTEROLOGY | PatyELSIE georges [address] | unspecified | | | | [address] [place] | [address] | abdominal location | | | | [address] [place], [place] | [place], [place] | (Primary Dx); | | | | [address] | [id number] | Angiodysplasia of | | | | [phone] | | colon | +--------+---------+ + + + Social History + + [...] Filed Vital Signs + + + + + | Vital Sign | Reading | Time Taken | Comments | + + + + + | Blood Pressure | 132/60 | 05/04/2019 9:16 AM | | | | | PDT | | + + + + + | Pulse | 91 | 05/04/2019 9:16 AM | | | | | PDT | | + + + + + | Temperature | 36.8 C (98.3 F) | 05/04/2019 9:16 AM | | | | | PDT | | + + + + + | Respiratory Rate | 14 | 05/04/2019 9:16 AM | | | | | PDT | | + + + + + | Oxygen Saturation | 95% | 05/04/2019 9:16 AM | | | | | PDT | | + + + + + | Inhaled Oxygen | - | - | | | Concentration | | | | + + + + + | Weight | 74 kg (163 lb 2.3 | 05/04/2019 9:16 AM | | | | oz) | PDT | | + + + + + | Height | - | - | | + + + + + | Body Mass Index | 27.15 | 03/31/2019 8:01 AM | | | | | PDT | | + + + + + documented in this encounter Patient Instructions Patient Instructions Paty Newton ARNP - 05/04/2019 9:00 AM PDT Take Tums when he first goes to bed to PREVENT the pain/discomfort. If this does not help prevent the discomfort, then try the FDgard samples. You would take 2 just before bed. May continue with psyllium once daily if you feel it is helping. There were blood vessels on the surface of your colon that can cause some rectal bleeding. They are called angiodysplasia of the colon. documented in this encounter Progress Notes Paty Newton ARNP - 05/04/2019 9:00 AM PDTFormatting of this note might be differe nt from the original. PATIENT NAME: James Castro : 1930: AGE: 89 y.o. REFERRED BY: Curt Chanel PRIMARY CARE: ELSIE Jon Subjective: CHIEF COMPLAINT: James Castro is a 89 y.o. male is here for a follow up. He is being seen today for foll ow-up EGD and colonoscopy due to abdominal pain. HISTORY OF PRESENT ILLNESS: Patient reports a continued discomfort in the abdomen when he lays down. It can be an ache or burning sensation. It only hurts when he lays down. If he eats, this can help sometimes. He takes both omeprazole and Carafate. Neither seems to help. He states Tums and this helps the most. He did have some rectal bleeding following colonoscopy. He was then seen in the ED about 4 days later. He was taken off Eliquis for 10 days . He had no further rectal bleeding. Patient is here today to discuss continued abdominal pain as well as results from upper en doscopy and colonoscopy. 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) Pseudophakia TIA (transient ischemic attack) Wears dentures full upper and partial lower Past Surgical History: Procedure Laterality Date CATARACT REMOVAL WITH IMPLANT Bilateral COLONOSCOPY COLONOSCOPY N/A 03/31/2019 Procedure: COLONOSCOPY; Surgeon: Raghavendra Bhatti MD; Location: [facility] FEMORAL-POPLITEAL BYPASS GRAFT UPPER GASTROINTESTINAL ENDOSCOPY N/A 03/31/2019 Procedure: EGD; Surgeon: Raghavendra Bhatti MD; Location: [facility] Family History Problem Relation Age of Onset [...] Not on file Tobacco Use Smoking status: Former Smoker Years: 45.00 Types: Cigarettes Last attempt to quit: 10/28/1998 Years since quittin.5 Smokeless tobacco: Never Used Substance and Sexual Activity Alcohol use: Not Currently Drug use: Never Sexual activity: Not on file Other Topics Concern Not on file Social History Narrative Not on file Review of Systems Constitutional: Negative for chills, fever and unexpected weight change. Respiratory: Negative for cough, shortness of breath and wheezing. Cardiovascular: Negative for chest pain, palpitations and leg swelling. Gastrointestinal: Negative except as stated above Objective: Physical Exam Constitutional: He is oriented to person, place, and time. He appears well-developed and we ll-nourished. No distress. HENT: Head: Normocephalic and atraumatic. Eyes: No scleral icterus. Musculoskeletal: Normal range of motion. He exhibits no edema or deformity. Neurological: He is alert and oriented to person, place, and time. Skin: Skin is warm and dry. No rash noted. Psychiatric: He has a normal mood and affect. His speech is normal and behavior is normal. Nursing note and vitals reviewed. Abstract on 04/09/2019 Component Date Value Ref Range Status Colonoscopy Impression, External 03/31/2019 See Full Report~ [facility] Dr. Bhatti Final EGD 03/31/2019: Impression: - Normal esophagus. - Z-line regular, 39 cm from the incisors. - Gastritis. Biopsied. - Normal duodenal bulb and second portion of the duodenum. Biopsied. Colonoscopy 03/31/2019: Impression: - A few non-bleeding colonic angiodysplastic lesions. - Normal mucosa in the rectum, in the sigmoid colon, in the descending colon, in the transverse colon, in the ascending colon and in the cecum. Biopsied. - Diverticulosis in the sigmoid colon. - The distal rectum and anal verge are normal on retroflexion view. - There were no endoscopic findings to explain diarrhea. Await pathology results. Pathology 03/31/2019: FINAL PATHOLOGIC DIAGNOSIS: A. Duodenal biopsy: - Benign duodenal mucosa, negative for specific diagnostic abnormality. B. Gastric biopsy: - Benign gastric-type mucosa with focal fundic gland polyp formation. - Negative for evidence of Helicobacter organisms on routine HE stained sections. C. Random colon, biopsy: - Benign colonic mucosa, negative for specific diagnostic abnormality. Assessment: 1. Abdominal pain, unspecified abdominal location 2. Angiodysplasia of colon Plan: He is to take Tums when he first goes to bed to prevent the pain/discomfort. If this does not help prevent the discomfort, then try the FDgard samples. You would take 2 just before bed. If pain continues despite the above recommendations, patient is to call our office. Discussed the angiodysplasia of the colon as a cause for potential rectal bleeding. Patient is to call with any question or concerns. Any fevers, chills, chest pain, SOB or o ther serious symptoms patient is to call the office or go to ER. CC: ELSIE Jon This note was dictated using voice recognition software. Please contact me if there are an y questions regarding its content.Electronically signed by ELSIE [place] at 05/04 10:10 AM PDTdocumented in this encounter Plan of Treatment +--------+---------+ + + + | Date | Type | Specialty | Care Team | Description | +--------+---------+ + + + | 01/04/ | Office | Cardiology | Nancy Flores, | | | 2020 | Visit | | MD [facility] | | | | | | [address] [place], [place] | | | | | | [address] | | | | | | | | +--------+---------+ + + + documented as of this encounter Visit Diagnoses + + | Diagnosis | + + | Abdominal pain, unspecified abdominal location - Primary | + + | Angiodysplasia of colon Angiodysplasia of intestine (without mention of hemorrhage) | + + documented in this encounter"
--- OUTSIDE RECORDS SUMMARY | ~2020-06-20 | XMS | Encounter Summary ---
Demographics + + + | Address | [id number] [place] [address] RD | | | [place] [address] | + + + | Home Phone | | + + + | Preferred Language | Unknown | + + + | Marital Status | | + + + | Anabaptism Affiliation | 1077 | + + + | Race | White | + + + | Ethnic Group | Not or | + + + Author + + + | Author | [facility] | | | and [place] | + + + | Organization | [facility] | | | and [place] | + + + | Address | Unknown | + + + | Phone | Unavailable | + + + Support + + + + + | Name | Relationship | Address | Phone | + + + + + | Elaine Castro | ECON | [address] | | | | | [place] | | | | | [address] | | + + + + + Care Team Providers + +------+ + | Care Busser Name | Role | Phone | + +------+ + PCP | Unavailable | + +------+ + Encounter Details +--------+ + + + + | Date | Type | Department | Care Team | Description | +--------+ + + + + | 09/18/ | Hospital | [facility] | | | | 2004 | Encounter | MED CTR XRAY [address] | | | | | | [place] | | | | | | [place] [address] | | | | | | [phone] | | | +--------+ + + + [...] [place] | | | | | | [address] | | | | | | | | +--------+---------+ + + + documented as of this encounter Visit Diagnoses Not on filedocumented in this encounter"
--- OUTSIDE RECORDS SUMMARY | ~2020-06-20 | XMS | Encounter Summary ---
Demographics + + + | Address | [id number] [place] [address] RD | | | [place] [address] | + + + | Home Phone | | + + + | Preferred Language | Unknown | + + + | Marital Status | | + + + | Spiritism Affiliation | 1077 | + + + | Race | White | + + + | Ethnic Group | Not or | + + + Author + + + | Author | [facility] | | | and [place] | + + + | Organization | [facility] | | | and [place] | + + + | Address | Unknown | + + + | Phone | Unavailable | + + + Support + + + + + | Name | Relationship | Address | Phone | + + + + + | Elaine Castro | ECON | [address] | | | | | [place] | | | | | [address] | | + + + + + Care Team Providers + +------+ + | Care Wood Crew Supervisor Name | Role | Phone | [...] | | | | Diagnoses | | Estrella, | | | | | Atrial | | Raghavendra Jordyn, | | | | | fibrillation | | MD [address] | | | | , | | [address] | | | | | unspecified | | [place], | | | | | type (HCC) | | [place] [address] | | | | | Chronic | | Phone: | | | | | obstructive | | [phone] | | | | | pulmonary | | Fax: | | | | | disease, | | [phone] | | | | | unspecified | [...] | | | | | | | [place] | | | | | | | ESOPHAGOGAST | | | | | | | RODUODENOSCO | | | | | | | PY TRANSORAL | | | | | | | DIAGNOSTIC | | | | | | | [place] EGD | | | | | | | TRANSORAL | | | | | | | BIOPSY | | | | | | | SINGLE/MULTI | | | | | | | PLE [place] | | | | | | | COLONOSCOPY | | | | | | | FLX DX | | | | | | | W/COLLJ SPEC | | | | | | | WHEN PFRMD | | | | | | | [place] | | | | | | | COLONOSCOPY | | | | | | | W/BIOPSY | | | | | | | SINGLE/MULTI | | | | | | | PLE [place] | | | | | | | COLSC FLX | | | | | | | W/RMVL OF | | | | | | | TUMOR POLYP | | | | | | | LESION SNARE | | | | | | | TQ [place] | | | | | | | [...] [facility] | MD Jordyn [address] | pulmonary disease, | | | | [address] | [address] [place] | unspecified COPD | | | | [place], [place] | [place] [address] | type (HCC); Long | | | | [address] | [phone] | term (current) use | | | | [phone] | | of anticoagulants; | | | [...] | Blood Pressure | 94/50 | 03/31/2019 10:00 AM | | | | | PDT | | + + + + + | Pulse | 72 | 03/31/2019 10:00 AM | | | | | PDT | | + + + + + | Temperature | 36.6 C (97.9 F) | 03/31/2019 9:56 AM | | | | | PDT | | + + + + + | Respiratory Rate | 20 | 03/31/2019 10:00 AM | | | | | PDT | | + + + + + | Oxygen Saturation | 94% | 03/31/2019 10:00 AM | | | | | PDT | | + + + + + | Inhaled Oxygen | - | - | | | Concentration | | | | + + + + + | Weight | 72.5 kg (159 lb 13.3 | 03/31/2019 8:01 AM | | | | oz) | PDT | | + + + + + | Height | 165.1 cm (5' 5") | 03/31/2019 8:01 AM | | | | | PDT | | + + + + + | Body Mass Index | 26.6 | 03/31/2019 8:01 AM | | | [...] by your healthcare provider Date Last Reviewed: 12/26/201719994324-0047 [employer]. [address] [place] [address], [place] [address]. All righ ts reserved. This information is [...] prep; | tablet | | 19 | 9 | | | take 1 tablet; wait | | | | | | | 30 min then resume | | | | | | | prep; repeat 1x prn | | | | | + + + +---------+ + + documented as of this encounter H&P Raghavendra Doll, MD - 03/31/2019 9:17 AM PDT PRE-ENDOSCOPY HISTORY AND PRE-SEDATION ASSESSMENT PATIENT NAME: James Castro : 1930 TODAY'S DATE: 03/31/2019 PLANNED PROCEDURE: Colonoscopy PERTINENT HISTORY/INDICATION FOR PROCEDURE: James Castro is a 89 y.o. male who is under going endoscopy for abdominal pain and diarrhea. 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 Chronic sinusitis Dry eyes Edema Other ill-defined and unknown causes of morbidity and mortality Peripheral vascular disease Pseudophakia Solitary pulmonary nodule Transient cerebral ischemia Chronic obstructive pulmonary disease, unspecified GERD (gastroesophageal reflux disease) Hearing loss Hyperlipidemia COPD (chronic obstructive pulmonary disease) prison (current) use of anticoagulants - apixaban (ELIQUIS) Abdominal pain, unspecified abdominal location Beta Blockers - Daily Use CAD (coronary artery disease) PAST SURGICAL HISTORY Past Surgical History: Procedure Laterality Date CATARACT REMOVAL WITH IMPLANT Bilateral COLONOSCOPY FEMORAL-POPLITEAL BYPASS GRAFT HOME MEDS: No current facility-administered medications on file prior to encounter. Current Outpatient Medications on File Prior to Encounter Medication Sig Dispense Refill albuterol 90 mcg/puff inhaler Inhale 2 puffs into the lungs every 4 hours as needed for Wheezing. amLODIPine (NORVASC) 2.5 mg tablet Take 2.5 mg by mouth Daily. apixaban (ELIQUIS) 5 mg tablet Take 5 mg by mouth 2 times daily. carboxymethylcellulose (REFRESH TEARS) 0.5% ophthalmic solution Place 1 drop into both eyes 4 times daily. cilostazol (PLETAL) 100 mg tablet Take 100 mg by mouth 2 times daily. fluorometholone (FML) 0.1% ophthalmic suspension Place 2 drops into both eyes 2 times d aily. folic acid 1 mg tablet Take 1 mg by mouth Daily. furosemide (LASIX) 40 mg tablet Take 40 mg by mouth 2 times daily. guaiFENesin 200 MG tablet Take 400 mg by mouth 3 times daily. ipratropium (ATROVENT) 0.06% nasal spray 2 sprays by Nasal route 3 times daily. metoprolol tartrate (LOPRESSOR) 100 mg tablet Take 150 mg by mouth 2 times daily. omeprazole (PRILOSEC) 20 mg capsule Take 40 mg by mouth every morning (before breakfast ). ondansetron (ZOFRAN) 4 mg tablet As needed for nausea; stop prep; take 1 tablet; wait 3 0 min then resume prep; repeat 1x prn 2 tablet 0 potassium chloride (KLOR-CON) 10 MEQ ER tablet Take 20 mEq by mouth 2 times daily. Psyllium 100 % POWD Take 4 g by mouth Daily. 368 g 2 rosuvastatin (CRESTOR) 20 mg tablet Take 10 mg by mouth nightly. sucralfate (CARAFATE) 1 g tablet Take 1 g by mouth 3 times daily. ALLERGIES No Known Allergies Mallampati Class 2 (upper half of tonsil fossa) [place] [employer] Anest[employer] Grade:ASA 3 - A patient with severe systemic disease Sedation Plan: Monitored anesthesia care EXAMINATION: BP 139/73 | Pulse 73 | Temp 36.7 C (98.1 F) (Temporal) | Resp 16 | Ht 1.651 m (5' 5 ") | Wt 72.5 kg (159 lb 13.3 oz) | SpO2 94% | BMI 26.60 kg/m General: Alert and oriented Throat: Normal Lungs: Clear Heart: irregular rate and rhythm with out significant murmur Abdomen: flat, normal bowel sounds. Soft, nontender 1. Available medical records have been reviewed. 2. Medication list reviewed. IMPRESSION: Patient appropriate for colonoscopy and EGD. PLAN: 1. Proceed with procedure as stated above with monitored anesthesia care 2. Procedure, indications, risks and alternatives explained to patient/family and they agre ed to proceed and consent was signed. 3. Patient will be reevaluated immediately (1-2 minutes) before sedation administration and approved for the plan as stated above. Electronically Signed by: Raghavendra De La Rosa MD 03/31/2019 [facility] VERIFICATION OF CONSENT (PARQ) The patient counseled regarding the procedure, its indications, risks, potential complicati ons and alternatives. Any questions were answered. Consent was obtained. aRghavendra De La Rosa MD, 03/31/2019 9:17 [facility] Portions of this chart may have been created with [employer] voice recognition software. Occasi onal wrong-word or sound-alike substitutions may have occurred due to the inherent hunter itations of voice recognition software. Please read the chart carefully and recognize, using context, where these substitutions have occurred Joel Crook ARNP - 03/02/2019 10:00 AM PDTFormatting of this note might be different from the origin al. PATIENT NAME: James Castro : 1930: AGE: [...] <1 0 - 3 Final UA Specific [place], External 12/26/2018 1.003 1.001 - 1.03 Final [...] Request - OR/EN DO/ASC/OB: EGD, COLONOSCOPY 4. prison (current) use of anticoagulants Case Request - [...] y questions regarding its content. documented in t his encounter Miscellaneous Notes D-C Instructions Provation - Raghavendra De La Rosa MD - 03/31/2019 9:12 AM PDTDischarge Ins tructions for Upper Endoscopy Patient: James Castro : 1930 Acct: [id number] Exam Date: Sunday, March 31, 2019 Doctor: RAGHAVENDRA DE LA ROSA MD The chances of difficulty following this procedure are minimal. The following instructions will assist you in your recovery. 1. Do Not eat or drink anything for 1 hour. Try sips of water first. If tolerated, resume your regular diet or one recommended by your physician. 2. Do not drive, operate machinery, make critical decisions, or do activities that require coordination or balance for 24 hours. 3. You may experience a sore throat for 24 - 48 hours. You may use throat lozenges or gargle with warm salt water to relieve the discomfort. 4. Because air was put into your stomach druing the procedure, you may experience some belching. 5. Do not use any medication containing aspirin for 10 days, unless otherwise directed by your physician. 6. Sometimes the medications given to you druing the exam can aggravate the veins. The chemical irritation can cause inflammation or pain along the arm with redness, swelling and warmth. This does not mean there is an infection. You can treat the affected area by applying warm, wet compresses (towels) 4 times a day for 20 minutes at a time until inflammation is resolved 7. Report to your doctor: Chills and/or fever over 100 Persistent vomiting or vomiting with blood/nasal regurgitation Severe abdominal pain, other than gas cramps Severe chest pain Black, tarry stools You may reach your physician at . If unable to reach your physician, call [facility] at Ext. [phone] Your doctor recommends these additional instructions: We are waiting for your pathology results. Resume your previous diet. See the patient instructions associated with the other procedure note for additional recommendations from your physician. Take Prilosec OTC 20 mg by mouth once a day for two months. Return to your GI clinic. These instructions have been explained to the patient and/or escort. A copy has been given to the patient/escort. Nurse Signature Patient Signature Escort Signature Date RAGHAVENDRA DE LA ROSA MD 03/31/2019 9:50:31 AM This report has been signed electronically. -C Instructions Provation - Est[place], Raghavendra Cobb MD - 03/31/2019 9:11 AM PDTDischarge Instructions for Colonoscopy Exams Patient: James Castro : 1930 Acct: [id number] Exam Date: Sunday, March 31, 2019 Doctor: RAGHAVENDRA DE LA ROSA MD You have had an examination of the gastrointestinal tract. The chances of difficulty following this procedure are minimal. The following instructions will assist you in your recovery. ACTIVITIES: Rest quietly until sedation wears off. DO NOT drive a motor vehicle or operate machinery for 24 hours after sedation. Be cautious making critical decisions for 24 hours after sedation. DIET: If throat has been sprayed, do not eat or drink for 1 hour after. Start with a swallow of tap water, if you experience any lack of sensation in your throat, wait another 30 - 60 minutes and start with water again. Once swallowing has returned to normal you may resume your usual diet unless otherwise instructed by your physician. DISCOMFORT: If you had a bowel exam, you may have some abdominal discomfort from the air put into your bowel during the exam. Moving about will help you pass this air. Sometimes the medications given to you during the exam can aggravate the veins. The chemical irritation can cause inflammation or pain along the arm with redness, swelling and warmth. This does not mean there is an infection. You can treat the affected area by applying warm,wet compresses (towels) 4 times a day for 20 minutes at a time until inflammation is resolved. REPORT TO YOUR DOCTOR: Unusual abdominal pain Chest pain or unusual shortness of breath Shoulder pain Nausea, vomiting Fever over 100 degrees, chills Signs of rectal bleeding (red or black stools) Any concern you have resulting from procedure You may reach your physician at . If unable to reach your physician, call [facility] at Ext. [phone] Your doctor recommends these additional instructions: Resume your previous diet. Continue your present medications. We are waiting for your pathology results to see if there is a cause for you diarrhea. Resume taking Eliquis (apixaban) at your prior dose today. These instructions have been explained to the patient and/or escort. A copy has been given to the patient/escort. Nurse Signature Patient Signature Escort Signature Date RAGHAVENDRA DE LA ROSA MD 03/31/2019 9:54:51 AM This report has been signed electronically. documented in this encounter Plan of Treatment +--------+---------+ + + + | Date | Type | Specialty | Care Team | Description | +--------+---------+ + + + | 01/04/ | Office | Cardiology | Nancy Flores, | | | 2020 | Visit | | MD [address] | | | | | | [place] | | | | | | [id number] | | | | | | | | +--------+---------+ + + + documented as of this encounter Procedures + +--------+ + + + | Procedure Name | Priori | Date/Time | Associated Diagnosis | Comments | | | ty | | | | + +--------+ + + + | COLONOSCOPY | | 03/31/2019 | Atrial | | | | | 9:16 AM | fibrillation, | | | | | PDT | unspecified type | | | | [...] | Atrial | | | | | 9:16 AM | fibrillation, | | | | | PDT | unspecified type | | | | [...] this | | | e | 9:12 AM | | procedure are in the | | | | PDT | | results section. | + +--------+ + + + | COLONOSCOPY | Routin | 03/31/2019 | | Results for this | | | e | 9:11 AM | | procedure are in the | | | | PDT | | results section. | + +--------+ + + + | SURGICAL PATHOLOGY | Routin | 03/31/2019 | | Results for this | | EXAM | e | 12:00 AM | | procedure are in the | | | | PDT | | results section. | + +--------+ + + + documented in this encounter Results EGD (03/31/2019 9:12 AM PDT) + + | Specimen | + + | | + + + + -+ | Narrative | Performed At | + + -+ | | [facility] | | GastroenterologyPatient Name: James CastroProcedure Date: 03/31/2019 | [facility] | | 9:12 AMMRN: [id number] #: [id number] of : | | | 2Admit Type: AmbulatoryAge: 89Room: Endo Room 2Gender: | | | MaleNote Status: FinalizedAttending MD: RAGHAVENDRA DE LA ROSA , | | | MDProcedure: Upper GI endoscopyIndications: | | | Generalized abdominal pain, DiarrheaProviders: RAGHAVENDRA | | | JORDYN DE LA ROSA MD, Prisca Braswell RN, Yaneth | | | Anish, Stores Clerk, Eliceo Patterson MD (Anesthesia Staff)Referring | | | MD: Curt Chanel (Referring MD)Medicines: | | | Monitored Anesthesia CareComplications: No immediate | | | complications.Procedure: Pre-Anesthesia Assessment: - | | | Prior to the procedure, a History and Physical was performed, and | | | patient medications and allergies were reviewed. The patient is | | | competent. The risks and benefits of the procedure and the | | | sedation options and risks were discussed with the patient. All | | | questions were answered and informed consent was obtained. | | | Patient identification and proposed procedure were verified by | | | the physician, the nurse and the anesthesiologist in the | | | pre-procedure area in the procedure room. Mental Status | | | Examination: alert and oriented. Airway Examination: Mallampati | | | Class II (the uvula but not tonsillar pillars visualized). | | | Respiratory Examination: clear to auscultation. CV Examination: | | | irregularly irregular rate and rhythm. Prophylactic | | | Antibiotics: The patient does not require prophylactic | | | antibiotics. Prior Anticoagulants: The patient has taken | | | Eliquis (apixaban), last dose was 2 days prior to procedure. | | | ASA Grade Assessment: III - A patient with severe systemic disease. | | | After reviewing the risks and benefits, the patient was deemed | | | in satisfactory condition to undergo the procedure. The | | | anesthesia plan was to use monitored anesthesia care (MAC). | | | Immediately prior to administration of medications, the patient | | | was re-assessed for adequacy to receive sedatives. The heart | | | rate, respiratory rate, oxygen saturations, blood pressure, | | | adequacy of pulmonary ventilation, and response to care were | | | monitored throughout the procedure. The physical status of the | | | patient was re-assessed after the procedure. After obtaining | | | informed consent, the endoscope was passed under direct vision. | | | Throughout the procedure, the patient's blood pressure, pulse, | | | and oxygen saturations were monitored continuously. The Endoscope was | | | introduced through the mouth, and advanced to the second part | | | of duodenum. The upper GI endoscopy was accomplished without | | | difficulty. The patient tolerated the procedure well.Findings: | | | The examined esophagus was normal. The Z-line was regular | | | and was found 39 cm from the incisors. Patchy mild inflammation | | | characterized by erosions and erythema was found in the gastric | | | body and in the gastric antrum. Biopsies were taken with a | | | cold forceps for histology. The cardia and gastric fundus were | | | normal on retroflexion. The exam of the stomach was otherwise | | | normal. The duodenal bulb and second portion of the duodenum | | | were normal. Biopsies were taken with a cold forceps for | | | histology.Impression: - Normal esophagus. - Z-line | | | regular, 39 cm from the incisors. - Gastritis. Biopsied. - | | | Normal duodenal bulb and second portion of the duodenum. | | | Biopsied.Recommendation: - Await pathology results. - | | | Resume previous diet. - See the other procedure note for | | | documentation of additional recommendations. - Use | | | Prilosec OTC 20 mg PO daily for 2 months. - Return to GI | | | clinic.RAGHAVENDRA DE LA ROSA MD03/31/2019 9:50:31 AMThis report has been | | | signed electronically.Number of Addenda: 0Note Initiated On: 03/31/2019 | | | 9:12 AMScope In: 9:23:14 AMScope Out: 9:29:[address] | | | [facility], [address] [place] [address] | | | [phone] | | | - Normal duodenal bulb and second portion of the duodenum. Biopsied. | | |Recommendation: | | | - Await pathology results. | | | - Resume previous diet. [...] |Scope Out: 9:29:18 AM | | | [facility], [facility] [address] [place], [place] | | | [address] | | + + -+ + +---------+ + + | Performing | Address | City/State/[facility] Centercode | Phone Number | | Organization | | | | + +---------+ + + | [facility] | | | | + +---------+ + + COLONOSCOPY (03/31/2019 9:11 AM PDT) + + | Specimen | + + | | + + + + -+ | Narrative | Performed At | + + -+ | | [facility] | | GastroenterologyPatient Name: James CastroProcedure Date: 03/31/2019 | [facility] | | 9:11 AMMRN: [id number] #: [id number] of : | | | 1930dmit Type: AmbulatoryAge: 89Room: Endo Room 2Gender: | | | MaleNote Status: FinalizedAttending MD: RAGHAVENDRA DE LA ROSA , | | | MDProcedure: ColonoscopyIndications: Generalized | | | abdominal pain, Chronic diarrheaProviders: RAGHAVENDRA COBB | | | MD ESTRELLA, Prisca Braswell RN, Yaneth | | | Anish, Stores Clerk, Eliceo Patterson MD (Anesthesia Staff)Referring | | | MD: Curt Chanel (Referring ), Paty Newton, | | | ELSIE (Referring )Medicines: | | | Monitored Anesthesia CareComplications: No immediate | | | complications.Procedure: Pre-Anesthesia Assessment: - | | | Prior to the procedure, a History and Physical was performed, and | | | patient medications and allergies were reviewed. The patient is | | | competent. The risks and benefits of the procedure and the | | | sedation options and risks were discussed with the patient. All | | | questions were answered and informed consent was obtained. | | | Patient identification and proposed procedure were verified by | | | the physician, the nurse and the anesthesiologist in the | | | pre-procedure area in the procedure room. Mental Status | | | Examination: alert and oriented. Airway Examination: Mallampati | | | Class II (the uvula but not tonsillar pillars visualized). | | | Respiratory Examination: clear to auscultation. CV Examination: | | | irregularly irregular rate and rhythm. Prophylactic | | | Antibiotics: The patient does not require prophylactic | | | antibiotics. Prior Anticoagulants: The patient has taken | | | Eliquis (apixaban), last dose was 2 days prior to procedure. | | | ASA Grade Assessment: III - A patient with severe systemic disease. | | | After reviewing the risks and benefits, the patient was deemed | | | in satisfactory condition to undergo the procedure. The | | | anesthesia plan was to use monitored anesthesia care (MAC). | | | Immediately prior to administration of medications, the patient | | | was re-assessed for adequacy to receive sedatives. The heart | | | rate, respiratory rate, oxygen saturations, blood pressure, | | | adequacy of pulmonary ventilation, and response to care were | | | monitored throughout the procedure. The physical status of the | | | patient was re-assessed after the procedure. After I obtained | | | informed consent, the scope was passed under direct vision. | | | Throughout the procedure, the patient's blood pressure, pulse, | | | and oxygen saturations were monitored continuously. The Colonoscope | | | was introduced through the anus and advanced to the cecum, | | | identified by appendiceal orifice and ileocecal valve. The | | | colonoscopy was performed without difficulty. The patient | | | tolerated the procedure well. The quality of the bowel | | | preparation was evaluated using the BBPS ([place] Bowel | | | Preparation Scale) with scores of: Right Colon = 3, Transverse | | | Colon = 3 and Left Colon = 3 (entire mucosa seen well with no residual | | | staining, small fragments of stool or opaque liquid). The | | | total BBPS score equals 9.Findings: The perianal and | | | digital rectal examinations were normal. A few small patchy | | | angiodysplastic lesions without bleeding were found in the | | | ascending colon and in the cecum. Normal mucosa was found in the | | | rectum, in the sigmoid colon, in the descending colon, in the | | | transverse colon, in the ascending colon and in the cecum. | | | Biopsies for histology were taken with a cold forceps from the | | | entire colon for evaluation of microscopic colitis. A few | | | small-mouthed diverticula were found in the sigmoid colon. 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 - Normal mucosa | | | in the rectum, in the sigmoid colon, in the descending colon, | | | in the transverse colon, in the ascending colon and in the cecum. | | | Biopsied. - Diverticulosis in the sigmoid colon. - The | | | distal rectum and anal verge are normal on retroflexion view. - | | | There were no endoscopic findings to explain diarrhea. Await pathology | | | results.Recommendation: - The patient will be observed | | | post-procedure, until all discharge criteria are met. - | | | Resume previous diet. - Continue present medications. - | | | Await pathology results. - Resume Eliquis (apixaban) at prior | | | dose today. - Return to GI clinic.RAGHAVENDRA DE LA ROSA MD03/31/2019 | | | 9:54:51 AMThis report has been signed electronically.Number of | | | Addenda: 0Note Initiated On: 03/31/2019 9:11 AMScope Withdrawal Time: 0 | | | hours 8 minutes 24 seconds Scope In: 9:31:10 AMScope Out: 9:46:59 AM | | | [facility], [address] [facility] | | | [place] [address] | | | - The patient will be observed post-procedure, until all discharge | | | criteria are met. | | | - Resume previous diet. | | | - Continue present medications. | | | - Await pathology results. [...] |Scope Out: 9:46:59 AM | | | [facility] Children, [facility] [place], [place] | | | [address] | | + + -+ + +---------+ + + | Performing | Address | City/State/Zipcode | Phone Number | | Organization | | | | + +---------+ + + | [facility] | | | | + +---------+ + + Surgical Pathology Exam (03/31/2019 12:00 AM PDT) + + | Specimen | + [...] pulmonary disease, unspecified COPD type), Z79.01 (terminal supervisor [current] | | | use of anticoagulants), [...] for specific diagnostic | | | abnormality. JVR:[place]:C2NR GROSS DESCRIPTION: Three specimens | | | [...] The specimen, labeled "AH, gastric biopsy," is received | | | in formalin and consists of five bermudez-white soft tissue fragments | | | ranging from 0.2-0.4 cm in greatest dimension. The specimen is | | | entirely submitted in cassette (B1). C. The specimen, labeled | | | "AH, random colon," is received in formalin and consists of nine | | | bermudez-white soft tissue fragments ranging from 0.2-0.3 cm in greatest | | | dimension. The specimen is entirely submitted in cassette (C1). [place] | | | (under the direct supervision of a pathologist) The Gross | | | Description was prepared using a voice recognition system. The | | | report was reviewed for accuracy; however, sound-alike word errors, | | | addition and/or deletions may occur. If there is any question about | | | this report, please contact Client Services. PERFORMING | | | LABORATORY: The technical component was performed by [email or web address] | | | [employer], [address] [place] [address] (Marketing Campaign Analyst: | | | Hellen Cortez MD; CLIA# [id number]). Professional interpretation was | | | performed by [employer], [facility] | | | [place], [address] [place] [address] (Medical | | | Director: Rajeev Veloz M.D.). Diagnostician: Rajeev Delgado | | | Magdiel CHAMBERS Pathologist Electronically Signed 04/01/2019 | | + + + [...] COPD type (HCC) | + + | terminal manager (current) use of anticoagulants - apixaban (ELIQUIS) Long-term (current) | | use of anticoagulants | + + | Abdominal pain, unspecified abdominal location | + + | Diarrhea, unspecified type | + + | Atrial fibrillation, persistent (HCC) Atrial fibrillation | + + | GERD (gastroesophageal reflux disease) Esophageal reflux | + + | Hypertension Unspecified essential hypertension | + + | Peripheral vascular disease (HCC) Peripheral vascular disease, unspecified | + + documented in this encounter Admitting Diagnoses + + | Diagnosis | + + | Atrial fibrillation, unspecified type (HCC) | + + | Chronic obstructive pulmonary disease, unspecified COPD type (HCC) | + + | terminal manager (current) use of anticoagulants Long-term (current) use [...] | | CONTINUOUS, Starting 03/31/19 | | AM PDT | | | | | at 0830, Pre-op | | | | | | + +---------+ +--------+-------+------+ +---+---+ | | | +---+---+ documented in this encounter
--- OUTSIDE RECORDS SUMMARY | ~2020-06-20 | XMS | Clinical Summary ---
Demographics + + + | Address | [address] [place] [address] RD | | | [place] [address] | + + + | Home Phone | | + + + | Preferred Language | Unknown | + + + | Marital Status | | + + + | Yazdanism Affiliation | 1077 | + + + | Race | White | + + + | Ethnic Group | Not or | + + + Author + + + | Author | [facility] | | | and [place] | + + + | Organization | [facility] | | | and [place] | + + + | Address | Unknown | + + + | Phone | Unavailable | + + + Support + + + + + | Name | Relationship | Address | Phone | + + + + + | Elaine Acstro | ECON | [address] | | | | | [place] | | | | | [address] | | + + + + + Care Team Providers + +------+ + | Care Clinical Documentation Consultant Name | Role | Phone | + +------+ + | Sukhdeep Hanna MD | PCP | | + +------+ + Allergies No [...] | | + + + +---------+------+------+-------+ | Multiple | Take by mouth. | | 0 | | | Activ | | Vitamins-Minerals | | | | | | e | | (MULTIVITAMIN ADULT | | | | | | | | PO) | | | | | | | + + + +---------+------+------+-------+ | isosorbide | Take 60 mg by mouth | | 0 | | | Activ | | mononitrate 60 mg ER | Daily. | | | | | e | | tablet | | | | | | | + + + +---------+------+------+-------+ | FLUoxetine | Take 10 mg by mouth | | 0 | | | Activ | | (PROZAC) 10 mg | Daily. | | | | | e | | tablet | | | | | | | + + + +---------+------+------+-------+ | nitroglycerin | Place 0.4 mg under | | 0 | | | Activ | | (NITROSTAT) 0.4 mg | the tongue every 5 | | | | | e | | SL tablet | minutes as needed | | | | | | | | for Chest pain May | | | | | | | | repeat every 5 | | | | | | | | minutes as needed | | | | | | | | for a total of 3 | | | | | | | | doses within a | | | | | | | | 15-minute period. | | | | | | | | If no relief, seek | | | | | | | | medical attention | | | | | | | | promptly . 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 | | + + + + + [...] | 03/16/2019 | + + + | meterman (current) use of anticoagulants - apixaban (ELIQUIS) | 03/16/2019 | + + + + + | Overview: apixaban (ELIQUIS) | + + + + + | Abdominal pain, unspecified abdominal location | 03/16/2019 | + + + + + | Overview: Added automatically from request for surgery | | [id number] | + + + + + | Atrial fibrillation, persistent | 03/02/2019 | + + + | Hypertension | 03/02/2019 | + + + | Basal cell [...] Daily Use | | + + + Resolved Problems + + + + | Problem | Noted | Resolved | | | Date | Date | + + + + | 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 | 03/02/20 | | | claudication | 19 | 0 | + + + + | Dry eyes | 03/02/20 | | | | 19 | 0 | + + + + | Edema | 03/02/20 | | | | 19 | 0 | + + + + | Chronic obstructive pulmonary disease, unspecified | 03/02/20 | | | | 19 | 0 | + + + + Encounters +--------+ + + + + | Date | Type | Specialty | Care Team | Description | +--------+ + + + + | 06/13/ | Documentati | Cardiology | Nancy Brock, | | | 2019 | on | | MD | | +--------+ + + + + | 06/01/ | Office | Cardiology | Nancy Brock, | Atrial fibrillation, | | 2019 | Visit | | MD | persistent (HCC) | | | | | | (Primary Dx); | | | | | | Peripheral vascular | | | | | | disease (HCC); | | | | | | Coronary artery | | | | | | disease involving | | | | | | minto coronary | | | | | | artery of minto | | | | | | heart without angina | | | | | | pectoris; Chronic | | | | | | obstructive | | | | | | pulmonary disease, | | | | | | unspecified COPD | | | | | | type (HCC); Long | | | | | | term (current) use | | | | | | of anticoagulants - | | | | | | apixaban (ELIQUIS) | +--------+ + + + + from [...] + + + | Blood Pressure | 146/64 | 06/01/2020 3:02 PM | | | | | PDT | | + + + + + | Pulse | 80 | 06/01/2020 3:02 PM | | | | | PDT | [...] + | Oxygen Saturation | 95% | 06/01/2020 3:02 PM | | | | | PDT | | + + + + + | Inhaled Oxygen | - | - | | | Concentration | | | | + + + + + | Weight | 71.7 kg (158 lb) | 06/01/2020 3:02 PM | | | | | PDT | | + + + + + | Height | 167.6 cm (5' 6") | 06/01/2020 3:02 PM | | | | | PDT | | + + + + + | Body Mass Index | 25.5 | 06/01/2020 3:02 PM | | | | | PDT | | + + + + + Plan of Treatment +--------+---------+ + + + | Date | Type | Specialty | Care Team | Description | +--------+---------+ + + + | 01/04/ | Office | Cardiology | Nancy Brock, | | | 2020 | Visit | | MD Valeriy TO | | | | | | [place] | | | | | | [address] | | | | | | | | +--------+---------+ + + + + + + + + | Health Maintenance | Due Date | Last | Comments | | | | Done | | + + + + + | Medication | | | | | Management | 2 | | | + + [...] | | | | | Pneumococcal 65+ (1 | 7 | | | | of 1 - PPSV23) | | | | + + + + + | Adult Annual | | | | | Wellness Visit | 9 | | | + + + + + | Med Mgmt: Cr | | 12/27/19 | | | | 0 | 19, | | | | | 12/27/19 | | | | | 19 | | + + + + + | Med Mgmt: HCT | | 12/27/19 | | | | 0 | 19, | | | | | 12/27/19 | | | | | 19 | | + + + + + | Med Mgmt: HGB | | 12/27/19 | | | | 0 | 19, | | | | | 12/27/19 | | | | | 19 | | + + + + + | Med Mgmt: K | | 12/27/19 | | | | 0 | 19, | | | | | 12/27/19 | | | | | 19 | | + + + + + | Med Mgmt: Na | | 12/27/19 | | | | 0 | 19, | | | | | 12/27/19 | | | | | 19 | | + + + + + | Med Mgmt: PLT | | 12/27/19 | | | | 0 | 19, | | | | | 12/27/19 | | | | | 19 | | + + + + + | Med Mgmt: WBC | | 12/27/19 | | | | 0 | 19, | | | | | 12/27/19 | | | | | 19, | | | | | 12/27/19 | | | | | 19 | | + + + + + | Vaccine: Influenza | | | | | (#1) | 0 | | | + + + + + Procedures + +--------+ + + + | Procedure Name | Priori | Date/Time | Associated Diagnosis | Comments | | | ty | | | | + +--------+ + + + | ECHO COMPLETE | Routin | 06/09/2020 | Atrial | Results for this | | | e | 11:25 AM | fibrillation, | procedure are in the | | | | PDT | persistent (HCC) | results section. | | | | | Peripheral vascular | | | | | | disease ([facility]) | | | | | | Coronary artery | | | | | | disease involving | | | | | | minto coronary | | | | | | artery of minto | | | | | | heart without angina | | | | | | pectoris Chronic | | | | | | obstructive | | | | | | pulmonary disease, | | | | | | unspecified COPD | | | | | | type ([facility]) Long | | | | | | term (current) use | | | | | | of anticoagulants - | | | | | | apixaban (ELIQUIS) | | + +--------+ + + + | ECG 12 LEAD | Routin | 06/01/2020 | Atrial | Results for this | | | e | 3:05 PM | fibrillation, | procedure are in the | | | | PDT | persistent ([facility]) | results section. | + +--------+ + + + from Last 3 Months Results ECHO Complete (06/09/2020 11:25 AM PDT) + + + | Narrative | Performed At | + + + | ECHO DONE AT | | | [facility] | | + + + ECG 12 lead (06/01/2020 3:05 PM PDT) + + + + + + | Component | Value | Ref Range | Performed | Pathologist | | | | | At | Signature | + + + + + + | VENTRICULAR | 80 | BPM | [facility] | | | RATE EKG | | | | | + + + + + + | ATRIAL RATE | 258 | BPM | [facility] | | + + + + + + | QRS | 80 | ms | [facility] | | | DURATION | | | | | + + + + + + | Q-T | 384 | ms | [facility] | | | INTERVAL | | | | | + + + + + + | Q-T | 442 | ms | [facility] | | | INTERVAL | | | | | | (CORRECTED) | | | | | + + + + + + | QRS AXIS | 90 | degrees | [facility] | | + + + + + + | T AXIS | 70 | degrees | [facility] | | + + + + + + | INTERPRETAT | Atrial | | [facility] | | | ION TEXT | fibrillationRightward | | | | | | axisNonspecific ST | | | | | | abnormalityAbnormal | | | | | | ECGNo previous ECGs | | | | | | availableConfirmed by | | | | | | NANCY BROCK MD | | | | | | ([id number]) on 06/03/2020 | | | | | | 6:28:15 PM | | | | + + + + + + + + | Specimen | + + | | + + + + + | Narrative | Performed At | + + + | | | + + + + +---------+ + + | Performing | Address | City/State/Zipcode | Phone Number | | Organization | | | | + +---------+ + + | [facility] | | | | + +---------+ + [...] + +--------+ +--------+-------+---------+--------+ | [facility] [place] | [id number] | 3/19/2 | | | Indemn | | | COMMUN | | 019-Pr | | | ity | | | ITY | | esent | | | | | | CARE | | | | | | + +--------+ +--------+-------+---------+--------+ | [employer] | [facility] | [id number] | | | | Indemn | | | NS | | 019-Pr | | | ity | | | ADMIN | | esent | | | | | | [place] | | | | | | | [place] | | | | | | + +--------+ +--------+-------+---------+--------+ | [employer] | [facility] | [id number] | 10/28/19 | | | Medica | | | HEALTH | | 20-Pre | | | re | | | MDCR | | sent | | | | + +--------+ +--------+-------+---------+--------+ + +--------+ +--------+ + + | Guarantor Name | Accoun | Relation to | Date | Phone | Billing Address | | | t Type | Patient | of | | | | | | | | | | + +--------+ +--------+ + + | James Castro | Person | Self | [birth year] | | [address] | | | al/Fam | | 1930 | [phone] | [place], [place] | | | [place] | | | 6 (Home) | [address] | + +--------+ +--------+ + + | James Castro | Person | Self | [birth year] | | [address] | | | al/Fam | | 1930 | [phone] | [place], [place] | | | [place] | | | 6 (Home) | [address] | + +--------+ +--------+ + + Advance Directives + + + + + | Type | Date Recorded | Patient | Explanation | | | | Client Support Administrator | | + + + + + | Power of | | | | | Journeyman Plumber | | | | + + + + + | Advance | 03/31/2019 9:50 | | | | Directive | AM | | | + + + + +
--- OUTSIDE RECORDS SUMMARY | ~2020-06-20 | XMS | Encounter Summary ---
Demographics + + + | Address | [address] [place] [address] RD | | | [place] [address] | + + + | Home Phone | | + + + | Preferred Language | Unknown | + + + | Marital Status | | + + + | Mosque Affiliation | 1077 | + + + | Race | White | + + + | Ethnic Group | Not or | + + + Author + + + | Author | [facility] | | | and [place] | + + + | Organization | [facility] | | | and [place] | + + + | Address | Unknown | + + + | Phone | Unavailable | + + + Support + + + + + | Name | Relationship | Address | Phone | + + + + + | Elaine Castro | ECON | [address] | | | | | [place] | | | | | [address] | | + + + + + Care Team Providers + +------+ + | Care Tread Cutter Name | Role | Phone | + [...] | | | | | burning | [employer] [address] | [address] | | | | | sensation | [place] | [address] [place] | | | | | [address] | [address] | [address] [place] | | | | | esophagus | [place], [place] | [place], [place] | | | | | Procedures | [id number] | [address] | | | | | egd consult | Phone: | Phone: | | | | | | [phone] | [phone] | | | | | | Fax: | Fax: | | | | | | [phone] | [phone] | +--------+--------+ + + + + Encounter Details +--------+---------+ + + + | Date | Type | Department | Care Team | Description | +--------+---------+ + + + | 03/02/ | Office | [facility] [place] | [facility], | Abdominal pain, | | 2019 | Visit | GASTROENTEROLOGY | ELSIE Newman [address] | unspecified | | | | [address] [place] | [address] [place] [address] | abdominal location | | | | [address] [place], [place] | [place], [place] | (Primary Dx); Atrial | | | | [address] | [address] | fibrillation, | | | | [phone] | | unspecified type | | | [...] | Blood Pressure | 130/52 | 03/02/2019 9:59 AM | | | | | PDT | | + + + + + | Pulse | 80 | 03/02/2019 9:59 AM | | | | | PDT | | + + + + + | Temperature | 36.6 C (97.8 F) | 03/02/2019 9:59 AM | | | | | PDT | | + + + + + | Respiratory Rate | 16 | 03/02/2019 9:59 AM | | | | | PDT | | + + + + + | Oxygen Saturation | 93% | 03/02/2019 9:59 AM | | | | | PDT | | + + + + + | Inhaled Oxygen | - | - | | | Concentration | | | | + + + + + | Weight | 73.6 kg (162 lb 4.1 | 03/02/2019 9:59 AM | | | | oz) | PDT | | + + + + + | Height | 165.1 cm (5' 5") | 03/02/2019 9:59 AM | | | | | PDT | | + + + + + | Body Mass Index | 27 | 03/02/2019 9:59 AM | | | | | PDT | | + + + + + documented in this encounter Patient Instructions Patient Instructions Paty Newton ARNP - 03/02/2019 10:00 AM PDTCheck with the pres ciber of the Eliquis to be sure it is safe to stop for a short time to have EGD and colonosc opy done. documented in this encounter Progress Notes Fransisca Reich RN - 03/02/2019 10:00 AM PDTScheduled pt for EGD/Colon with propofol sedation (Afib/Eliquis, ) on Sat03/31/[address] Bhatti; standard prep reviewed: low fiber diet Sat/Sun before procedure; Saturday follow a clear liquid day before with bowel pre p at 4pm until complete; Medications (hold Eliquis 24 hrs - pt states he usually hold 3 days per provider instruction and will confirm with provider; will hold PPI and Carafate day of procedure as well), surg/med hx, and allergies were reviewed; rx given to patient to take to [facility] for bowel prep and Zofran; info provided to patient; completed case request ord er, notes to [place]; patient's going through cancer treatment and unsure of treatment dates so may need to reschedule last minute based on her dates of treatment. Rody Crook ARNP - 03/02/2019 10:00 AM PDTFormatting of this note might be different from the origi nal. PATIENT NAME: James Castro : 1930: AGE: [...] <1 0 - 3 Final UA Specific [place], External 12/26/2018 1.003 1.001 - 1.03 Final [...] Request - OR/EN DO/ASC/OB: EGD, COLONOSCOPY 4. retirement (current) use of anticoagulants Case Request - [...] its content. documented in t his encounter Plan of Treatment +--------+---------+ + + + | Date | Type | Specialty | Care Team | Description | +--------+---------+ + + + | 01/04/ | Office | Cardiology | Nancy Flores, | | | 2020 | Visit | | MD [place]eriy TO | | | | | | [address], [place] | | | | | | [id number] | | | | | | | | +--------+---------+ + + + documented as of this encounter Visit Diagnoses + + | Diagnosis | + + | Abdominal pain, unspecified abdominal location - Primary | + + | Atrial fibrillation, unspecified type (HCC) | + + | Chronic obstructive pulmonary disease, unspecified COPD type (HCC) | + + | retirement (current) use of anticoagulants Long-term (current) use of anticoagulants | + + documented in this encounter
--- OUTSIDE RECORDS SUMMARY | ~2020-06-20 | XMS | Encounter Summary ---
Demographics + + + | Address | [address] [place] [address] RD | | | [place] [address] | + + + | Home Phone | | + + + | Preferred Language | Unknown | + + + | Marital Status | | + + + | Hinduism Affiliation | 1077 | + + + | Race | White | + + + | Ethnic Group | Not or | + + + Author + + + | Author | [facility] | | | and [place] | + + + | Organization | [facility] | | | and [place] | + + + | Address | Unknown | + + + | Phone | Unavailable | + + + Support + + + + + | Name | Relationship | Address | Phone | + + + + + | Elaine Castro | ECON | [address] | | | | | [place] | | | | | [address] | | + + + + + Care Team Providers + +------+ + | Care Cat Scan Technologist Name | Role | Phone | + +------+ + PCP | Unavailable | + +------+ + Encounter Details +--------+ + + + + | Date | Type | Department | Care Team | Description | +--------+ + + + + | 08/19/ | Hospital | [facility] | Conversion | Pain | | 2018 | Encounter | CONVERSION [address] | Transaction, | | | | | [address] | Provider Unknown | | | | | [place], [place] | [phone] | | | | | [address] | | | | | | [phone] | | | +--------+ + + + [...] | 01/04/ | Office | Cardiology | Basiasindy Miguelitobertin, | | | 2020 | Visit | | [address] | | | | | | [place] | | | | | | [address] | | | | | | | | +--------+---------+ + + + documented as of this encounter Procedures + +--------+ + + + | Procedure Name | Priori | Date/Time | Associated Diagnosis | Comments | | | ty | | | | + +--------+ + + + | CT CHEST WO CONTRAST | Routin | 07/24/2018 | | Results for this | | | e | 12:47 AM | | procedure are in the | | | | PDT | | results section. | + +--------+ + + + documented in this encounter Results CT Chest wo Contrast (07/24/2018 12:47 AM PDT) + + | Specimen | + + | | + + + + + | Narrative | Performed At | + + + | This is a non-reportable procedure without a radiologist report and | | | is used for image storage only | | + + + + + | Procedure Note | + + | Devan Amos João - 06/10/2019 4:57 AM PDT This is a non-reportable procedure | | without a radiologist report and isused for image storage only | + + documented in this encounter Visit Diagnoses + + | Diagnosis | + + | Pain Generalized pain | + + documented in this encounter"
--- OUTSIDE RECORDS SUMMARY | ~2020-06-20 | XMS | Encounter Summary ---
Demographics + + + | Address | [address] [place] [address] RD | | | [place] [address] | + + + | Home Phone | | + + + | Preferred Language | Unknown | + + + | Marital Status | | + + + | Confucianist Affiliation | 1077 | + + + | Race | White | + + + | Ethnic Group | Not or | + + + Author + + + | Author | [facility] | | | and [place] | + + + | Organization | [facility] | | | and [place] | + + + | Address | Unknown | + + + | Phone | Unavailable | + + + Support + + + + + | Name | Relationship | Address | Phone | + + + + + | Elaine Castro | ECON | [address] | | | | | [place] | | | | | [address] | | + + + + + Care Team Providers + +------+ + | Care Shipping Hand Name | Role | Phone | + +------+ + PCP | Unavailable | + +------+ + Encounter Details +--------+ + + + + | Date | Type | Department | Care Team | Description | +--------+ + + + + | 07/03/ | Hospital | [facility] | Leonel Bustos MD | CORON ATHEROSCL | | 2004 - | Encounter | [facility] | | [place] [facility] | | | | CARE FLOOR [address] | | | | 07/[address]/ | | [address] | | | | 2004 | | [place], [place] | | | | | | [address] | | | | | | [phone] | | | +--------+ + + + [...] | | | | | [place] | | | | | | [address] | | | | | | | | +--------+---------+ + + + documented as of this encounter Visit Diagnoses + + | Diagnosis | + + | Coronary atherosclerosis of pokagon coronary artery | + + documented in this encounter"
--- OUTSIDE RECORDS SUMMARY | ~2020-06-20 | XMS | Encounter Summary ---
Demographics + + + | Address | [address] [place] [address] RD | | | [place] [address] | + + + | Home Phone | | + + + | Preferred Language | Unknown | + + + | Marital Status | | + + + | Yazidi Affiliation | 1077 | + + + | Race | White | + + + | Ethnic Group | Not or | + + + Author + + + | Author | [facility] | | | and [place] | + + + | Organization | [facility] | | | and [place] | + + + | Address | Unknown | + + + | Phone | Unavailable | + + + Support + + + + + | Name | Relationship | Address | Phone | + + + + + | Elaine Castro | ELA | [address] | | | | | [place] | | | | | [address] | | + + + + + Care Team Providers + +------+ + | Care Associate Program Manager Name | Role | Phone | + +------+ + | Curt Chanel | PCP | | + +------+ + Encounter Details +--------+ + + + + | Date | Type | Department | Care Team | Description | +--------+ + + + + | 04/09/ | Abstract | [facility] | Provider, | | | 2019 | | GASTROENTEROLOGY | [address] | | | | | [address] [facility] | Daniel Yang | | | | | [address] [place] | [place] [address] | | | | | [address] | | | | | | [phone] | | | +--------+ + + + [...] | | | | | | [place] | | | | | | [address] | | | | | | | | +--------+---------+ + + + documented as of this encounter Procedures + +--------+ + + + | Procedure Name | Priori | Date/Time | Associated Diagnosis | Comments | | | ty | | | | + +--------+ + + + | EXTERNAL: | Routin | 03/31/2019 | | Results for this | | COLONOSCOPY | e | | | procedure are in the | | | | | | results section. | + +--------+ + + + documented in this encounter Results EXTERNAL: COLONOSCOPY (03/31/2019) + + + + + + | Component | Value | Ref Range | Performed | Pathologist | | | | | At | Signature | + + + + + + | Colonoscopy | See Full Report~ [facility] | | | | | | Dr. Bhatti | | | | | Impression, | | | | | | External | | | | | + + + + + + documented in this encounter Visit Diagnoses Not on filedocumented in this encounter"
--- OUTSIDE RECORDS SUMMARY | ~2020-06-20 | XMS | Encounter Summary ---
Demographics + + + | Address | [address] [place] [address] RD | | | [place] [address] | + + + | Home Phone | | + + + | Preferred Language | Unknown | + + + | Marital Status | | + + + | Religion Affiliation | 1077 | + + + | Race | White | + + + | Ethnic Group | Not or | + + + Author + + + | Author | [facility] | | | and [place] | + + + | Organization | [facility] | | | and [place] | + + + | Address | Unknown | + + + | Phone | Unavailable | + + + Support + + + + + | Name | Relationship | Address | Phone | + + + + + | Elaine Castro | ECON | [address] | | | | | [place] | | | | | [address] | | + + + + + Care Team Providers + +------+ + | Care Accounts Receivable Collector Name | Role | Phone | + +------+ + PCP | Unavailable | + +------+ + Encounter Details +--------+ + + + + | Date | Type | Department | Care Team | Description | +--------+ + + + + | 05/09/ | Hospital | [facility] | | | | 2000 | Encounter | MED CTR LABORATORY | | | | | | [address] | | | | | | [place] | | | | | | [address] | | | | | | [phone] | | | +--------+ + + + [...] [place] | | | | | | [address] | | | | | | | | +--------+---------+ + + + documented as of this encounter Visit Diagnoses Not on filedocumented in this encounter"
--- OUTSIDE RECORDS SUMMARY | ~2020-06-20 | XMS | Encounter Summary ---
Demographics + + + | Address | [address] [place] [address] RD | | | [place] [address] | + + + | Home Phone | | + + + | Preferred Language | Unknown | + + + | Marital Status | | + + + | Hoahaoism Affiliation | 1077 | + + + | Race | White | + + + | Ethnic Group | Not or | + + + Author + + + | Author | [facility] | | | and [place] | + + + | Organization | [facility] | | | and [place] | + + + | Address | Unknown | + + + | Phone | Unavailable | + + + Support + + + + + | Name | Relationship | Address | Phone | + + + + + | Elaine Castro | ECON | [address] | | | | | [place] | | | | | [address] | | + + + + + Care Team Providers + +------+ + | Care Holistic Nutritionist Name | Role | Phone | + +------+ + PCP | Unavailable | + +------+ + Encounter Details +--------+ + + + + | Date | Type | Department | Care Team | Description | +--------+ + + + + | 01/27/ | Hospital | [facility] | | | | 2003 | Encounter | MED CTR MP INTRA OP | | | | | | [address] | | | | | | [place] | | | | | | [address] | | | | | | [phone] | | | +--------+ + + + [...] [place] | | | | | | [address] | | | | | | | | +--------+---------+ + + + documented as of this encounter Visit Diagnoses Not on filedocumented in this encounter"
--- OUTSIDE RECORDS SUMMARY | ~2020-06-20 | XMS | Encounter Summary ---
Demographics + + + | Address | [address] [place] [address] RD | | | [place] [address] | + + + | Home Phone | | + + + | Preferred Language | Unknown | + + + | Marital Status | | + + + | Yazdanism Affiliation | 1077 | + + + | Race | White | + + + | Ethnic Group | Not or | + + + Author + + + | Author | [facility] | | | and [place] | + + + | Organization | [facility] | | | and [place] | + + + | Address | Unknown | + + + | Phone | Unavailable | + + + Support + + + + + | Name | Relationship | Address | Phone | + + + + + | Elaine Castro | ECON | [address] | | | | | [place] | | | | | [address] | | + + + + + Care Team Providers + +------+ + | Care Traffic Monitor Specialist Name | Role | Phone | + +------+ + PCP | Unavailable | + +------+ + Encounter Details +--------+ + + + + | Date | Type | Department | Care Team | Description | +--------+ + + + + | 05/25/ | Hospital | [facility] | Teo Bennett, | | | 2007 | Encounter | MED CTR XRAY [address] | MD [address] | | | | | [place] | [address] [place], | | | | | [place] [address] | [place] [address] | | | | | [phone] | [phone] | | | | | | | | +--------+ + [...] [place] | | | | | | [address] | | | | | | | | +--------+---------+ + + + documented as of this encounter Visit Diagnoses Not on filedocumented in this encounter"
--- OUTSIDE RECORDS SUMMARY | ~2020-06-20 | XMS | Encounter Summary ---
Demographics + + + | Address | [address] [place] [address] RD | | | [place] [address] | + + + | Home Phone | | + + + | Preferred Language | Unknown | + + + | Marital Status | | + + + | Zoroastrian Affiliation | 1077 | + + + | Race | White | + + + | Ethnic Group | Not or | + + + Author + + + | Author | [facility] | | | and [place] | + + + | Organization | [facility] | | | and [place] | + + + | Address | Unknown | + + + | Phone | Unavailable | + + + Support + + + + + | Name | Relationship | Address | Phone | + + + + + | Elaine Castro | ELA | [address] | | | | | [place] | | | | | [address] | | + + + + + Care Team Providers + +------+ + | Care Wood Preparation Supervisor Name | Role | Phone | + +------+ + | Sukhdeep Hanna MD | PCP | | + +------+ + Reason for Referral Diagnostic/Screening (Routine) + +--------+ + + + + | Status | Reason | Specialty | Diagnoses / | Referred By | Referred To | | | | | Procedures | Contact | Contact | + +--------+ + + + + | Authorized | | | Diagnoses | [place], | [facility] | | | | | Atrial | MD Nancy | [facility] | | | | | fibrillation | [address] | | | | | , persistent | [address] | [address] | | | | | (HCC) | [place] | [place], [place] | | | | | Peripheral | [place], [place] | [address] | | | | | vascular | [address] | Phone: | | | | | disease | Phone: | [phone] | | | | | (HCC) | [phone] | Fax: | | | | | Coronary | Fax: | [phone] | | | | | artery | [phone] | | | | | | disease | | | | | | | involving | | | | | | | wrangell | | | | | | | coronary | | | | | | | artery of | | | | | | | wrangell heart | | | | | | | without | | | | | | | angina | | | | | | | pectoris | | | | | | | Chronic | | | | | | | obstructive | | | | | | | pulmonary | | | | | | | disease, | | | | | | | [...] | | | | | | | ECHO | | | | | | | Complete | | | + +--------+ + + + + Reason for Visit + + + | Reason | Comments | + + + | New Patient | | + + + Evaluate & Treat (Routine) + +--------+ + + + + | Status | Reason | Specialty | Diagnoses / | Referred By | Referred To | | | | | Procedures | Contact | Contact | + +--------+ + + + + | Authorized | | Cardiology | Diagnoses | Jacques, | Mark, | | | | | Aortic | Sukhdeep | MD Nancy | | | | | aneurysm of | MD Eliceo | [address] | | | | | unspecified | [address] | [place] | | | | | site, | [facility] | [place], [place] | | | | | without | [place], [place] | [address] Phone: | | | | | rupture | [address] | [phone] | | | | | ([facility]) | Phone: | Fax: | | | | | Procedures | [phone] | [phone] | | | | | Consult | Fax: | | | | | | | [phone] | | + +--------+ + + + + Encounter Details +--------+---------+ + + + | Date | Type | Department | Care Team | Description | +--------+---------+ + + + | 06/01/ | Office | [facility] | Nancy Murray, | Atrial fibrillation, | | 2020 | Visit | CARDIOLOGY [facility] | [address] | persistent (HCC) | | | | [address] | [place], [place] | (Primary Dx); | | | | [place] [address] | [address] | Peripheral vascular | | | | [place] | | disease (HCC); | | | | [address] | | Coronary artery | | | | [phone] | | disease involving | | | | | | wrangell coronary | | | | | | artery of wrangell | | | | | | heart [...] | | | | apixaban (ELIQUIS) | +--------+---------+ + + + Social History [...] + + + + | Temperature | - | - | | + + + + + | Respiratory Rate | - | - | | + [...] + + + documented in this encounter Progress Notes Nancy Murray MD - 06/01/2020 3:00 PM PDTFormatting of this note might be different f rom the original. Date of visit: 06/01/2020 Primary Care Physician: Sukhdeep Hanna MD CHIEF COMPLAINT: Chief Complaint Patient presents with New Patient HISTORY OF PRESENT ILLNESS: James is 89 y.o. here for establishing care and evaluation. Used to follow up with Marisela Garcia. History of atrial fibrillation, chronic, diagnosed with atrial fibrillation when was in you ng age. Has been on anticoagulation and rate control strategy. Denies any chest pain or shortness of breath. Lives alone after his after 46 years of marriage. Has been dep ressed lately. No chest pain or shortness of breath no orthopnea no lower extremity edema. Complicated past medical history, ascending aortic aneurysm that was mildly dilated evaluat ed by cardiothoracic surgery almost a year ago was found to be high risk for any surgical in tervention, also peripheral vascular disease with bilateral aortofemoral bypasses. No melena or hematuria. Has been on apixaban for anticoagulation. Past medical history, SH, FH, and medications were reviewed in the chart. Medications: Outpatient Encounter Medications as of 06/01/2020 Medication Sig Dispense Refill albuterol 90 mcg/puff [...] into both eyes 2 times d aily. FLUoxetine (PROZAC) 10 mg tablet Take 10 mg by mouth Daily. folic acid 1 mg tablet Take 1 mg by mouth Daily. furosemide (LASIX) 40 mg tablet Take 40 mg by mouth 2 times daily. guaiFENesin 200 MG tablet Take 400 mg by mouth 3 times daily. ipratropium (ATROVENT) 0.06% nasal spray 2 sprays by Nasal route 3 times daily. isosorbide mononitrate 60 mg ER tablet Take 60 mg by mouth Daily. metoprolol tartrate (LOPRESSOR) 100 mg tablet Take 150 mg by mouth 2 times daily. Multiple Vitamins-Minerals (MULTIVITAMIN ADULT PO) Take by mouth. nitroglycerin (NITROSTAT) 0.[address] 0.4 mg under the tongue every 5 minute s as needed for Chest pain May repeat every 5 minutes as needed for a total of 3 doses withi n a 15-minute period. If no relief, seek medical attention promptly . omeprazole (PRILOSEC) 20 mg capsule Take 40 mg by mouth every morning (before breakfast ). potassium chloride (KLOR-CON) 10 MEQ ER tablet Take 20 mEq by mouth 2 times daily. Psyllium 100 % POWD Take 4 g by mouth Daily. 368 g 2 rosuvastatin (CRESTOR) 20 mg tablet Take 10 mg by mouth nightly. sucralfate (CARAFATE) 1 g tablet Take 1 g by mouth 3 times daily. No facility-administered encounter medications on file as of 06/01/2020. Allergies No Known Allergies REVIEW OF SYSTEMS: Constitutional: Mild chronic fatigue weight has been stable. HEENT: Negative for nosebleeds, ear discharge, nasal congestion or soar throat. Eyes: Negative for visual disturbance, redness, or secretion. Respiratory: Negative for cough, sputum production, hemoptysis, wheezing. Cardiovascular: As HPI. Gastrointestinal: Negative for nausea, vomiting, diarrhea, abdominal pain and blood in stoo l. Genitourinary: Negative for dysuria or hematuria. Musculoskeletal: Chronic arthritic back pain. Skin: Negative for rash. Neurological: Negative for dizziness. No numbness. No recent falls. No slurred speech. Hematological: No significant bruising. Psychiatric/Behavioral: No depression or anxiety. PHYSICAL EXAM Vital Signs: BP 146/64 | Pulse 80 | Ht 1.676 m (5' 6") | Wt 71.7 kg (158 lb) | SpO2 95% | BMI 25.50 kg/m GENERAL APPEARANCE: Alert, oriented, cooperative, no distress, appears stated age. HEENT: Extraocular movements were intact. No jaundice. Pupiles round and reactive. NECK: No JVD, lymphadenopathy. Carotid upstrokes normal. No carotid bruit heard. CARDIAC: Regular rhythm and rate. There is normal S1 and S2. No galop. No murmur. CHEST: Normal bilateral symmetrical chest excursion.ackles or wheezing. No evidence of dull ness. ABDOMEN: Soft.No tenderness or guarding. No palpable organs. Active bowel sounds. EXTREMITIES: No lower extremities edema, cyanosis or clubbing. NEURO: Alert and oriented times three with no focal deficit. Cranial nerves are grossly no rmal. SKIN: Warm and dry. No rash. Psych: Normal affect and mood. DATA No results found for: NA, K, CO2, BUN, CREA, CALCIUM, MG Lab Results Component Value Date/Time WBC <1 12/26/2018 Lab Results Component Value Date LDLEX 59 12/26/2018 EC06/01/2020 Reviewed myself showed atrial fibrillation with controlled ventricular rate. Last Echo: 2004 Reported normal left ventricular size and function EF 60 to 65%. Mildly elevated left vent ricular end-diastolic pressure. +1 mild mitral regurgitation. Last Stress test: Last Cath:2004 Normal left main, LAD mildly calcified, left circumflex mild luminal irregularities. RCA m ild diffuse disease. Last US carotid: ASSESSMENT: Patient is 89 y.o. with 1. Chronic atrial fibrillation,CHADSVASc score of 4. 2. Essential hypertension. 3. Peripheral vascular disease previous aortofemoral bypasses. 4. Ascending aortic aneurysm. 5. Chronic obstructive pulmonary disease. Plan: Reviewed patient available records at this time. No recent hospitalization. His medical regimen has been controlled with metoprolol 150 mg twice daily for rate control strategy. On apixaban for anticoagulation. Ascending aortic aneurysm was found to be high risk. Echocardiogram is ordered to evaluate LV function and valvular pathology. On isosorbide, amlodipine, furosemide for blood pressure control. Consider adding aspirin 81 mg once daily given his peripheral vascular disease and previous aorto bypass surgery. Patient to call with any change in symptoms. Thank you Dr. Hanna for allowing me the chance to participate in the care of this patient . *This report has been prepared using a voice recognition system. The report was reviewed fo r accuracy, however, sound-alike word errors, addition and/or deletions may occur. If there is any question about this report please contact me. Nancy Murray MD, MPH documented in this encounter Plan of Treatment +--------+---------+ + + + | Date | Type | Specialty | Care Team | Description | +--------+---------+ + + + | 01/04/ | Office | Cardiology | Nancy Murray, | | | 2020 | Visit | | MD [address] | | | | | | [address] [place] | | | | | | [id number] | | | | | | | [...] | persistent (HCC) | results section. 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
--- OUTSIDE RECORDS SUMMARY | ~2020-06-20 | XMS | Encounter Summary ---
Demographics + + + | Address | [id number] [place] [address] RD | | | [place] [address] | + + + | Home Phone | | + + + | Preferred Language | Unknown | + + + | Marital Status | | + + + | Mormon Affiliation | 1077 | + + + | Race | White | + + + | Ethnic Group | Not or | + + + Author + + + | Author | [facility] | | | and [place] | + + + | Organization | [facility] | | | and [place] | + + + | Address | Unknown | + + + | Phone | Unavailable | + + + Support + + + + + | Name | Relationship | Address | Phone | + + + + + | Elaine Castro | ELA | [address] | | | | | [place] | | | | | [address] | | + + + + + Care Team Providers + +------+ + | Care General Dentist Name | Role | Phone | + +------+ + | Curt Chanel | PCP | | + +------+ + Encounter Details +--------+ + + + + | Date | Type | Department | Care Team | Description | +--------+ + + + + | 02/13/ | Abstract | [facility] | Provider, | | | 2018 | | GASTROENTEROLOGY | MD [address] | | | | | [address] [facility] | Daniel Yang | | | | | [address] [place] | [place] [address] | | | | | [address] | | | | | | [phone] | | | +--------+ + + + [...] [place] | | | | | | [address] | | | | | | | [...] + + + + + + | Clarity, | Clear | | | | | Urine | | [...] | Blood | + + External Lab: BUN (12/26/2018) + +-------+ + + + | [...] - 1.03 | EXTERNAL | | | [place], | | | LAB | | | [...] | | LAB | | | , Direct, | | | | | | External [...]
--- OUTSIDE RECORDS SUMMARY | ~2020-06-20 | XMS | Encounter Summary ---
Demographics + + + | Address | [address] [place] [address] RD | | | [place] [address] | + + + | Home Phone | | + + + | Preferred Language | Unknown | + + + | Marital Status | | + + + | Taoism Affiliation | 1077 | + + + | Race | White | + + + | Ethnic Group | Not or | + + + Author + + + | Author | [facility] | | | and [place] | + + + | Organization | [facility] | | | and [place] | + + + | Address | Unknown | + + + | Phone | Unavailable | + + + Support + + + + + | Name | Relationship | Address | Phone | + + + + + | Elaine Castro | ECON | [address] | | | | | [place] | | | | | [address] | | + + + + + Care Team Providers + +------+ + | Care Fire Regulator Name | Role | Phone | + +------+ + PCP | Unavailable | + +------+ + Encounter Details +--------+ + + + + | Date | Type | Department | Care Team | Description | +--------+ + + + + | 11/08/ | Hospital | [facility] | Conversion | Lung nodule | | 2014 | Encounter | [facility] | Transaction, | | | | | MEDICINE [address] | Provider Unknown | | | | | [address] | [phone] | | | | | [place], [place] | | | | | | [address] | | | | | | [phone] | | | +--------+ + + + [...] [place] | | | | | | [address] | | | | | | | | +--------+---------+ + + + documented as of this encounter Procedures + +--------+ + + + | Procedure Name | Priori | Date/Time | Associated Diagnosis | Comments | | | ty | | | | + +--------+ + + + | PET CT SKULL BASE TO | Routin | 11/08/2014 | | Results for this | | MID THIGH | e | 11:55 AM | | procedure are in the | | | | PST | | results section. | + +--------+ + + + documented in this encounter Results PET CT Skull Base To Mid Thigh (11/08/2014 11:55 AM PST) + + | Specimen | + + | | + + + + + | Impressions | Performed At | + + + | 1. No abnormal uptake in the chest, with no definable pulmonary | | | nodule. 2. No hilar or mediastinal adenopathy or abnormal uptake. | | | 3. Aortobifemoral bypass graft with expected mild uptake. 4. Mild | | | cardiac enlargement most prominent involving the left atrium. 5. | | | Mild prostate enlargement. 6. Slight bladder wall thickening is | | | probably artifactual due to lack of distention. Electronically | | | signed by Samuel Henry MD on 11/08/2014 4:36 PM | | + + + + + + | Narrative | Performed At | + + + | HISTORY: Lung nodules. The history of smoking. Suspected lung | | | malignancy. COMPARISON: None available. TECHNIQUE: Serum | | | blood sugar 100 mg/dL. The patient was sedated with 0.25 milligrams | | | of oral Xanax. Fused PET/CT scans were obtained from the skull Base | | | through the upper thighs at 75 minutes post injection of 12.7 | | | millicuries F18 fluorodeoxyglucose. CT images are for localization | | | only, and not for diagnostic purposes. FINDINGS: No abnormal | | | uptake in the chest. Bulbous prominence of the right inferior | | | pulmonary vein as it enters the left atrium. No evidence of pulmonary | | | mass. (CT demonstrates motion as the exam is acquired during tidal | | | respiration to match PET images). 9 mm lymph node left infrahilar | | | region without uptake sequence 4 image 111. No hilar or mediastinal | | | adenopathy. Ectasia ascending aorta with mild atherosclerotic | | | calcification, measuring 3.8 cm AP dimension. Moderate left atrial, | | | mild right atrial, and mild biventricular enlargement with mild | | | coronary arterial calcification. Aortobifemoral bypass graft shows | | | mild uptake, most prominent at the graft origin in the aorta, SUV up | | | to 7.0 proximally, 4.1 distally. Prostate is mildly enlarged, | | | measuring 5.3 x 4.5 cm axial, without abnormal uptake. Urinary bladder | | | is nearly empty. Consequently mild bladder wall thickening is | | | probably artifactual. | | + + + + + | Procedure Note | + + | Dandre, Rad Conversion - 06/12/2019 5:26 AM PDT HISTORY:Lung nodules. The history of | | smoking. Suspected lung malignancy. COMPARISON:None available. TECHNIQUE:Serum blood | | sugar 100 mg/dL. The patient was sedated with 0.25 milligrams of oral Xanax. Fused | | PET/CT scans were obtained from the skull Base through the upper thighs at 75 minutes | | post injection of 12.[address] images are for | | localization only, and not for diagnostic purposes. FINDINGS:No abnormal uptake in the | | chest. Bulbous prominence of the right inferior pulmonary vein as it enters the left | | atrium. No evidence of pulmonary mass. (CT demonstrates motion as the exam is acquired | | during tidal respiration to match PET images). 9 mm lymph node left infrahilar region | | without uptake sequence 4 image 111. No hilar or mediastinal adenopathy. Ectasia | | ascending aorta with mild atherosclerotic calcification, measuring 3.8 cm AP dimension. | | Moderate left atrial, mild right atrial, and mild biventricular enlargement with mild | | coronary arterial calcification. Aortobifemoral bypass graft shows mild uptake, most | | prominent at the graft origin in the aorta, SUV up to 7.0 proximally, 4.1 distally. | | Prostate is mildly enlarged, measuring 5.3 x 4.5 cm axial, without abnormal uptake. | | Urinary bladder is nearly empty. Consequently mild bladder wall thickening is probably | | artifactual. IMPRESSION: 1. No abnormal uptake in the chest, with no definable | | pulmonary nodule.2. No hilar or mediastinal adenopathy or abnormal uptake.3. | | Aortobifemoral bypass graft with expected mild uptake.4. Mild cardiac enlargement most | | prominent involving the left atrium.5. Mild prostate enlargement.6. Slight bladder | | wall thickening is probably artifactual due to lack of distention. | |IMPRESSION: | |1. No abnormal uptake in the chest, with no definable pulmonary nodule. | |2. No hilar or mediastinal adenopathy or abnormal uptake. | |3. Aortobifemoral bypass graft with expected mild uptake. | |4. Mild cardiac enlargement most prominent involving the left atrium. | |5. Mild prostate enlargement. | |6. Slight bladder wall thickening is probably artifactual due to lack of distention. | | | | | + + documented in this encounter Visit Diagnoses + + | Diagnosis | + + | Lung nodule Solitary pulmonary nodule | + + documented in this encounter"
--- OUTSIDE RECORDS SUMMARY | ~2020-06-20 | XMS | Encounter Summary ---
Demographics + + + | Address | [address] [place] [address] RD | | | [place] [address] | + + + | Home Phone | | + + + | Preferred Language | Unknown | + + + | Marital Status | | + + + | Sabianism Affiliation | 1077 | + + + | Race | White | + + + | Ethnic Group | Not or | + + + Author + + + | Author | [facility] | | | and [place] | + + + | Organization | [facility] | | | and [place] | + + + | Address | Unknown | + + + | Phone | Unavailable | + + + Support + + + + + | Name | Relationship | Address | Phone | + + + + + | Elaine Castro | ECON | [address] | | | | | [place] | | | | | [address] | | + + + + + Care Team Providers + +------+ + | Care Graphics Edit Technician Name | Role | Phone | + [...] | | type (HCC) | | [place] [address] | | | | | Chronic | | Phone: | | | | | obstructive | | [phone] | | | | | pulmonary | | Fax: | | | | | disease, | | [phone] | | | | | unspecified | [...] 03/31/ | Surgery | [facility] | Raghavendra De La Rosa | EGD | | 2019 | | [facility] | MD Jordyn [address] | | | | | [address] | [place] | | | | | [place] | [place] [address] | | | | | [address] | [phone] | | | | | [phone] | | | +--------+---------+ + + + [...] + + + | Blood Pressure | 89/44 | 03/31/2019 9:54 AM | | | | | PDT | | + + + + + | Pulse | 72 | 03/31/2019 9:54 AM | | | | | PDT | | + + + + + | Temperature | 36.7 C (98.1 F) | 03/31/2019 8:01 AM | | | | | PDT | | + + + + + | Respiratory Rate | 20 | 03/31/2019 9:54 AM | | | | | PDT | | + + + + + | Oxygen Saturation | 95% | 03/31/2019 9:54 AM | | | | | PDT [...] than a third of people in the have these bacteria in their bodies. In [...] by your healthcare provider Date Last Reviewed: 12/26/201719999751-6762 [employer]. [address] [place] [address]. All righ ts reserved. 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 Chronic sinusitis Dry eyes Edema Other ill-defined and unknown causes of morbidity and mortality Peripheral vascular disease Pseudophakia Solitary pulmonary nodule Transient cerebral ischemia Chronic obstructive pulmonary disease, unspecified GERD (gastroesophageal reflux disease) Hearing loss Hyperlipidemia COPD (chronic obstructive pulmonary disease) 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 Any questions were answered. Consent was obtained. Raghavendra De La Rosa MD, 03/31/2019 9:17 [facility] Portions of this chart may have been created with [employer] voice recognition software. 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 Your doctor [...] Exams Patient: James Castro : 1930 Acct: [id number] Exam Date: Sunday, March 31, 2019 Doctor: [...] If unable to reach your physician, call [facility] Emergency Department at [address] Your doctor [...] [place] | | | | | | [address] | | | | | | | [...] | [facility] | | GastroenterologyPatient Name: James Sánchezhari Date: 03/31/2019 | PROVATION | | 9:12 AMMRN: [id number] #: [id number] of : | | | 1930dmit Type: AmbulatoryAge: 89Room: Endo Room 2Gender: | | | MaleNote Status: FinalizedAttending MD: RAGHAVENDRA DE LA ROSA , | | | MDProcedure: Upper GI endoscopyIndications: | | | Generalized abdominal pain, DiarrheaProviders: RAGHAVENDRA | | | JORDYN DE LA ROSA MD, Prisca Braswell RN, Yaneth | | | Anish, Integrated Campaign Manager, Eliceo Patterson MD (Anesthesia Staff)Referring | | [...] AMScope In: 9:23:14 AMScope Out: 9:29:18 AM [facility]. | | | [facility], [address] [place] [address] | | | [phone] | | | - Normal duodenal bulb [...] |Scope Out: 9:29:18 AM | | | [facility], [address] [facility], [place], [place] | | | [address] | | + + -+ + +---------+ [...] | [facility] | | GastroenterologyPatient Name: James CsatroProcedure Date: 03/31/2019 | [place]OV[place] | | 9:11 AMMRN: [id number] #: [id number] of : | | | 1930dmit Type: AmbulatoryAge: 89Room: Endo Room 2Gender: | | | MaleNote Status: FinalizedAttending MD: RAGHAVENDRA DE LA ROSA , | | | MDProcedure: ColonoscopyIndications: Generalized | | | abdominal pain, Chronic diarrheaProviders: RAGHAVENDRA COBB | | | MD ESTRELLA, Prisca Braswell RN, [facility] | | | Anish, Integrated Campaign Manager, Eliceo Patterson MD (Anesthesia Staff)Referring | | | MD: Curt Chanel (Referring ), Paty Newton | | | ELSIE (Referring )Medicines: | [...] | preparation was evaluated using the BBPS (Baker Bowel | | | Preparation Scale) with [...] AMScope Out: 9:46:59 AM | | | [facility], [address] [facility] | | | [place] [address] | | | - The patient will [...] |Scope Out: 9:46:59 AM | | | [facility], [address] [facility], [place], [place] | | | [address] | | + + -+ + +---------+ [...] | pulmonary disease, unspecified COPD type), Z79.01 (jewel flat surfacer [current] | | | use of anticoagulants), [...] for specific diagnostic | | | abnormality. JVR:[facility]:C2NR GROSS DESCRIPTION: Three specimens | [...] LABORATORY: The technical component was performed by [employer] | | | [place] [address] (Bung Remover: | | | Hellen Cortez MD; CLIA# [id number]). 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
--- OUTSIDE RECORDS SUMMARY | ~2020-06-20 | XMS | Encounter Summary ---
Demographics + + + | Address | [address] [place] [address] RD | | | [place] [address] | + + + | Home Phone | | + + + | Preferred Language | Unknown | + + + | Marital Status | | + + + | Yarsani Affiliation | 1077 | + + + | Race | White | + + + | Ethnic Group | Not or | + + + Author + + + | Author | [facility] | | | and [place] | + + + | Organization | [facility] | | | and [place] | + + + | Address | Unknown | + + + | Phone | Unavailable | + + + Support + + + + + | Name | Relationship | Address | Phone | + + + + + | Elaine Castro | ECON | [address] | | | | | [place] | | | | | [address] | | + + + + + Care Team Providers + +------+ + | Care Network Diagnostic Support Specialist Name | Role | Phone | + +------+ + PCP | Unavailable | + +------+ + Encounter Details +--------+ + + + + | Date | Type | Department | Care Team | Description | +--------+ + + + + | 08/20/ | Hospital | [facility] | | | | 2002 | Encounter | MED CTR GENERIC OP | | | | | | CONV DEPT [address] | | | | | | [place], | | | | | | [place] [address] | | | | | | [phone] | | | +--------+ + + + [...] [place] | | | | | | [address] | | | | | | | | +--------+---------+ + + + documented as of this encounter Visit Diagnoses Not on filedocumented in this encounter"
--- OUTSIDE RECORDS SUMMARY | ~2020-06-20 | XMS | Encounter Summary ---
Demographics + + + | Address | [address] [place] [address] RD | | | [place] [address] | + + + | Home Phone [...] + | Elaine Castro | ECON | [address] | | | | | [place] | | | | | [address] | | + + + + + Care Team Providers + +------+ + | Care Post Splitter Name | Role | Phone | + +------+ + | Curt Chanel | PCP | | + +------+ + Reason for Visit + +--------+ + | Reason | Onset | Comments | | | Date | | + +--------+ + | Rectal Bleeding | 04/13/ | | | | 2018 | | + +--------+ + Encounter Details +--------+ + + + + | Date | Type | Department | Care Team | Description | +--------+ + + + + | 04/13/ | Telephone | [facility] [place] | Raghavendra Bhatti | Rectal Bleeding | | 2019 | | GASTROENTEROLOGY | MD Eron [address] | | | | | [address] [place] | [address] [place] | | | | | [address] [place], [place] | [place] [address] | | | | | [address] | [phone] | | | | | [phone] | | | +--------+ + + + [...] Telephone Encounter - Fransisca Reich RN - 04/14/2019 2:32 PM PDTAttempted to reach patient; however, called the home number but it just rang and then asked for the access code ; no vm option; Patient is scheduled with Lissa for follow up to colonoscopy on 05/04; results letter out on 04/[address] Bhatti; per letter : "no evidence of inflammation, infection or a precancerous condition. There were no findings to explain your diarrhea. 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 Follow up with Paty Newton in the GI clinic is recommended to help manage this problem." - PL elephone Encounter - Jamilah Galan - 04/13/2019 10:45 AM PDTPatient called to speak with Dr Tiffanie ORTIZ, Fransisca, regarding "the results fro m his procedure on March 31, he never heard anything about that. Also he was in the hospital in [place] for 4 days because he was passing blood. The provider there tried to get ahold of Dr Bhatti and he does not know if the doctor was able to reach him or not". Please advise and call patient back at [phone]. documented in this encounter Plan of Treatment +--------+---------+ + + + | Date | Type | Specialty | Care Team | Description | +--------+---------+ + + + | 01/04/ | Office | Cardiology | Nancy Flores, | | | 2020 | Visit | | MD Valeriy [place] | | | | | | [place] | | | | | | [address] | | | | | | | | +--------+---------+ + + + documented as of this encounter Visit Diagnoses Not on filedocumented in this encounter
--- OUTSIDE RECORDS SUMMARY | ~2020-06-20 | XMS | Encounter Summary ---
Demographics + + + | Address | [address] [place] [address] RD | | | [place] [address] | + + + | Home Phone | | + + + | Preferred Language | Unknown | + + + | Marital Status | | + + + | Congregational Affiliation | 1077 | + + + [...] + | Elaine Castro | ELA | [address] | | | | | [place] | | | | | [address] | | + + + + + Care Team Providers + +------+ + | Care Coal Getter Name | Role | Phone | + +------+ + | Sukhdeep Hanna MD | PCP | | + +------+ + Encounter Details +--------+ + + + + | Date | Type | Department | Care Team | Description | +--------+ + + + + | 06/13/ | Documentati | [facility] | Nancy Flores, | | | 2019 | on | [place] | [address] | | | | | [address] | [place], [place] | | | | | [place], [place] | [address] | | | | | [address] | | | | | | [phone] | | | +--------+ + + + [...] Description | +--------+---------+ + + + | 03// Office | Cardiology | Nancy Flores, | | | 2020 | Visit | | [address] | | | | | | [place] | | | | | | [address] | | | | | | | [...] | | | | | | disease (HCC) | | | | | | Coronary artery | | | | | | disease involving | | | | | | [place] coronary | | | | | | artery of [place] | | | | | | heart without angina | | | | | | pectoris Chronic | | | | | | obstructive | | | | | | pulmonary disease, | | | | | | unspecified COPD | | | | | | type ([facility]) Long | | | | | | term (current) use | | | | | | of anticoagulants - | | | | | | apixaban (ELIQUIS) | | + +--------+ + + + documented in this encounter Results ECHO Complete (06/09/2020 11:25 AM PDT) + + + | Narrative | Performed At | + + + | ECHO DONE AT | | | [facility] | | + + + documented in this encounter Visit Diagnoses + + | Diagnosis | + + | Atrial fibrillation, persistent (HCC) Atrial fibrillation | + + | Peripheral vascular disease (HCC) Peripheral vascular disease, unspecified | + + | 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
[~2020-06-20 17:14] MED LIST changes: +ELIQUIS5 MG PO; +LUBRICANT 0.5-015 ML OP
[2020-06-20] MEDS ORDERED: ULTRA-LIGHT RO1 EACH MISC (20:05)
[2020-06-20] MEDS ORDERED: NORCO 5-325 TA1 EACH PO (20:05)
== END 2020-06-20 20:36 | disposition home or self-care (01) ==
LOC: ED 17:14
DX: S83.92XA Sprain of unspecified site of left knee, initial encounter (principal); S63.8X1A Sprain of other part of right wrist and hand, initial encounter; I48.91 Unspecified atrial fibrillation; I11.0 Hypertensive heart disease with heart failure; I50.9 Heart failure, unspecified; Z88.5 Allergy status to narcotic agent; Z79.899 Other long term (current) drug therapy; W18.30XA Fall on same level, unspecified, initial encounter
CPT/HCPCS: 70450; 73110; 73560; 99284-25

== ENCOUNTER 2020-09-21 13:27 | Emergency (ER) | payer MEDICARE ==
[~2020-09-21] VITALS: Ht 167.6 cm; Wt 72.8 kg
[~2020-09-21 13:27] MED LIST changes: +NORCO 5-325 TA1 EACH PO; +ULTRA-LIGHT RO1 EACH MISC
--- OUTSIDE RECORDS SUMMARY | 2020-09-21 13:30 | XMS ---
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 Michelle has no Care Guidelines for this patient. Michelle VISIT COUNT (12 MO.) 1 [facility] 2 VERONICA Leslie TOTAL 3 NOTE: Visits indicate total known visits. ED/C VISIT TRACKING (12 MO.) 09/21/2020 13:27 VERONICA Angulo [place] TYPE: Emergency COMPLAINT: - ABD PAIN 07/14/2020 15:42 [facility]. 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
--- NOTE | 2020-09-22 09:51 | EKG ---
[facility] [address] [facility] [place] [address] Signed Atrial fibrillation with premature ventricular or aberrantly conducted complexes Low voltage QRS Nonspecific ST abnormality Abnormal ECG When compared with ECG of 01-SEP-2017 06:32, No significant change was found Confirmed by GUSTAVO HINES MD ([id number]) on 09/22/2020 9:50:58 AM Electronically Signed By: GUSTAVO HINES MD 09/22/20 0951 PATIENT NAME: JULIA WARD Electrocardiogram DATE OF : 34 PHYSICIAN: GUSTAVO HINES MD REPORT #: [id number] REPORT IS CONFIDENTIAL AND NOT TO BE RELEASED WITHOUT AUTHORIZATION
== END 2020-09-21 17:55 | disposition home or self-care (01) ==
LOC: ED 13:27
DX: R10.13 Epigastric pain (principal); R11.10 Vomiting, unspecified; I48.91 Unspecified atrial fibrillation; I11.0 Hypertensive heart disease with heart failure; I50.9 Heart failure, unspecified; Z88.5 Allergy status to narcotic agent; Z79.899 Other long term (current) drug therapy
CPT/HCPCS: 71045; 71275; 74174; 80053; 83690; 83735; 84484; 85025; 85610; 93005; 93010; 99285-25; Q9967